=== PATIENT | male | born 1930 | race Caucasian/White ===

== ENCOUNTER → 2016-10-12 | Outpatient (CLI) | payer MEDICARE ==
--- NOTE | 2016-10-12 09:57 | CT ---
EXAMINATION TYPE: CT chest wo con DATE OF EXAM: 10/12/2016 COMPARISON: 04/06/2016 HISTORY: Patient complains of difficulty breathing. Patient has a history of renal CA with mets to t he lung. CT DLP: 498.3 mGycm. Automated Exposure Control for Dose Reduction was Utilized. TECHNIQUE: CT scan of the thorax is performed without IV contrast. FINDINGS: LUNGS: There are numerous bilateral pulmonary nodules the majority which appear to be stable in size. There is a nodule within the right middle lobe on axial image 42 which now measures 5 mm and previou sly measured approximately 3 mm. Overall the number of nodules appears to be relatively stable with t he largest nodule seen in the right lower lobe measuring approximately 1.4 cm. No pleural effusion. N o pneumothorax. Central bronchiectasis changes of COPD are suspected. Lack of IV contrast limits assessment for adenopathy. MEDIASTINUM: Lack of IV contrast is noted to limit evaluation for mediastinal and especially hilar ad enopathy. There are no definitive greater than 1 cm hilar or mediastinal lymph nodes. Atherosclerotic change aorta. OTHER: Previous right nephrectomy changes are noted and there are multiple hepatic lesions which dege nerative change of the spine is seen with 2 compression deformities near the thoracolumbar junction w hich appear to be stable from the previous exam. Sternotomy noted. Small hiatal hernia noted. IMPRESSION: 1. Numerous bilateral pulmonary nodules appear relatively stable in size with a single nodule in the right middle lobe increasing in size from 3 to 5 mm. Largest nodule again remains within the right lo wer lobe measuring 1.4 cm.
== END | disposition home or self-care (01) ==
LOC: RADCTMAIN 09:22
PROVIDERS: ATTEND Internal Medicine Hematology & Oncology
DX: C64.9 Malignant neoplasm of unspecified kidney, except renal pelvis (principal)
CPT/HCPCS: 71250

== ENCOUNTER → 2016-11-06 | Outpatient (CLI) | payer MEDICARE ==
--- NOTE | 2016-11-06 08:21 | CT ---
EXAMINATION TYPE: CT abdomen wo con DATE OF EXAM: 11/06/2016 COMPARISON: 06/05/2014 HISTORY: Right nephrectomy, hematuria CT DLP: 598 mGycm Automated exposure control for dose reduction was used. TECHNIQUE: Helical acquisition of images was performed from the lung bases through the top of iliac crest to include entire abdomen. CONTRAST: Performed without IV contrast. FINDINGS: LUNG BASES: Subsegmental linear changes most typical of scar or atelectasis. There are multiple pulmo nary nodules which have been previously described the largest in the right lower lobe measuring 1.7 c m. LIVER/GB: Hypoattenuating lesions within the liver are stable from the previous exam and most typical of hepatic cysts. No gallstones. Surgical lips seen adjacent to the posterior margin of the liver. PANCREAS: No significant abnormality is seen. SPLEEN: No significant abnormality is seen. ADRENALS: No significant abnormality is seen. KIDNEYS: Right nephrectomy changes seen. Last couple of contrast limits assessment of the left kidney for mass. No hydronephrosis or nephrolithiasis. There is a small hypodense lesions involving the low er pole left renal cortex indeterminate by noncontrast technique. 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 BOWEL: No significant abnormality is seen. LYMPH NODES: No significant abnormality is appreciated. OSSEOUS STRUCTURES: Degenerative and hypertrophic change the spine noted with multiple compression d eformities which are likely chronic with marked findings at L1 and L2. 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 IMPRESSION: 1. Post right nephrectomy changes with no evidence for recurrent mass. 2. 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 3. Multiple pulmonary nodules as previously been reported for multiple compression fractures which ap pear chronic
== END | disposition home or self-care (01) ==
LOC: RADCTMAIN 07:08
PROVIDERS: ATTEND Urology
DX: I72.2 Aneurysm of renal artery (principal); R91.8 Other nonspecific abnormal finding of lung field; Z90.5 Acquired absence of kidney; Z85.528 Personal history of other malignant neoplasm of kidney
CPT/HCPCS: 74150

== ENCOUNTER → 2017-05-03 | Outpatient (CLI) | payer MEDICARE ==
--- NOTE | 2017-05-03 11:23 | CT ---
EXAMINATION TYPE: CT chest wo con DATE OF EXAM: 05/03/2017 COMPARISON: 10/12/2016 HISTORY: Renal CA CT DLP: 748 mGycm. Automated Exposure Control for Dose Reduction was Utilized. TECHNIQUE: CT scan of the thorax is performed without IV contrast. FINDINGS: LUNGS: There are multiple bilateral pulmonary nodules the largest in the right lower lobe measuring 1 .4 cm. Nodules are stable in size and number from prior exam. No pleural effusion, pneumothorax or focal pneumonia. MEDIASTINUM: Lack of IV contrast is noted to limit evaluation for mediastinal and especially hilar ad enopathy. There are no definitive greater than 1 cm hilar or mediastinal lymph nodes. No cardiomega ly or pericardial effusion is seen. Coronary artery calcification noted. OTHER: Hypertrophic and degenerative changes spine seen with multiple compression deformities in the thoracolumbar region are stable. Sternotomy wires noted. Hepatic lesions are stable. Surgical clips i n the renal fossa noted. IMPRESSION: 1. Stable multiple bilateral pulmonary nodules unchanged in number and size from prior exam with the largest measuring 1.4 cm in the right lower lobe compatible with metastasis to stable hepatic lesions the largest measures approximately 2 Hounsfield units suggestive of simple cyst.
== END | disposition home or self-care (01) ==
LOC: RADCTMAIN 10:36
PROVIDERS: ATTEND Internal Medicine Hematology & Oncology
DX: C64.9 Malignant neoplasm of unspecified kidney, except renal pelvis (principal); R91.8 Other nonspecific abnormal finding of lung field
CPT/HCPCS: 71250

== ENCOUNTER → 2017-11-01 | Outpatient (CLI) | payer MEDICARE ==
--- NOTE | 2017-11-01 09:15 | CT ---
EXAMINATION TYPE: CT chest wo con DATE OF EXAM: 11/01/2017 COMPARISON: 05/03/2017, 10/12/2016, and 10/07/2015 HISTORY: 87-year-old male with history of renal cancer, observation for mets TECHNIQUE: Contiguous axial scanning of the chest without IV contrast. Coronal and sagittal reconstru ctions performed. CT DLP: 536.4 mGycm Automated exposure control for dose reduction was used. FINDINGS: Median sternotomy wires are present with post-CABG changes. Heart normal size without pericardial effusion. Mild coronary vessel calcifications are present. Ascending aorta is ectatic at 3.8 cm. Conventional arch vessel branching anatomy. Mild prostatic calc ifications within the aorta. 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 Scattered small mediastinal lymph nodes are demonstrated. No thoracic lymphadenopathy by CT size crit eria. Numerous bilateral pulmonary nodules are redemonstrated the majority of these are stable in size, for example, left upper lobe axial image 12 and 9 mm, superior segment left lower lobe and 1 cm axial im ages 27, Lingula at 1.1 cm axial image 35, left base at 8 mm axial image 50, right base at 1.8 cm, ax ial image 58. A few pulmonary nodules are a millimeter or 2 larger in size, for example, in the medial right lower lobe and 1 cm axial image 44 versus 9 mm, previously, 9 mm right midlung axial image 39 versus 7 mm, previously, and 6 mm peripheral right upper lobe axial image 26 versus 5 mm, previously, and 1.1 cm a nterior right apex versus 9 mm, previously. Mild centrilobular emphysema. No consolidation or pleural effusion. Small hiatal hernia. Numerous hypodense lesions within the liver remain unchanged from 10/07/2015 2 1.8 cm compatible with cysts. Right kidney surgically absent. Only partially visualized. Bones: L1 and L2 vertebral compression deformities with associated degenerative disc disease unchang ed. Normal variant sternal foramen. No osseous destructive process. IMPRESSION: 1. NUMEROUS BILATERAL PULMONARY NODULES MEASURING UP TO 1.8 CM. THE MAJORITY OF THESE ARE STABLE. HOW EVER, A HANDFUL ARE LARGER BY 1 OR 2 MM. CONTINUED FOLLOW-UP RECOMMENDED. NONE OF THE NODULES ARE SMA LLER. 2. 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 3. L1 AND L2 VERTEBRAL COMPRESSION DEFORMITIES ARE UNCHANGED.
== END | disposition home or self-care (01) ==
LOC: RADCTMAIN 08:26
PROVIDERS: ATTEND Internal Medicine Hematology & Oncology
DX: C64.9 Malignant neoplasm of unspecified kidney, except renal pelvis (principal); R91.8 Other nonspecific abnormal finding of lung field; J43.9 Emphysema, unspecified; I71.2 Thoracic aortic aneurysm, without rupture; Z90.5 Acquired absence of kidney
CPT/HCPCS: 71250

== ENCOUNTER 2017-12-30 09:25 | Emergency (ER) | payer MEDICARE ==
[2017-12-30] MEDS ORDERED: ACETAMINOPHEN TAB 500 MG TAB PO STA (13:12)
--- NOTE | 2017-12-30 13:27 | ED ---
General Adult HPI - General Chief complaint: Extremity Injury, Upper Stated complaint: LEFT SHOULDER PAIN Time Seen by Provider: 12/30/17 13:00 Source: patient, RN notes reviewed Mode of arrival: ambulatory Limitations: no limitations - History of Present Illness Initial comments: This is a 87-year-old male who presents with complaints of left shoulder pain that started 4 days ago. He states it's sharp 8/10 severity denies any trauma he is dominant left-handed but does not recall doing anything to hurt the left upper extremity he was seen at [facility] yesterday had an x-ray done and was told he had arthritis. He denies any numbness tingling or loss of function. No complaints of chest pain shortness breath or other symptoms. He states he's been using warm compresses on it but no oral medication. - Related Data Home Medications Medication Instructions Recorded Confirmed Fluticasone/Salmeterol [Advair 1 puff INHALATION RT-BID 09/25/13 12/30/17 500-50 Diskus] Levothyroxine Sodium [Synthroid] 112 mcg PO DAILY 09/25/13 12/30/17 Montelukast [Singulair] 10 mg PO HS 09/25/13 12/30/17 Cholecalciferol (Vitamin D3) 2,000 unit PO HS 12/30/17 12/30/17 [Vitamin D3] Losartan [Cozaar] 50 mg PO HS 12/30/17 12/30/17 Omeprazole [PriLOSEC] 40 mg PO DAILY 12/30/17 12/30/17 Tamsulosin HCl [Flomax] 0.4 mg PO HS 12/30/17 12/30/17 amLODIPine [Norvasc] 10 mg PO HS 12/30/17 12/30/17 Previous Rx's Medication Instructions Recorded predniSONE 20 mg PO BID #10 tab 12/30/17 Allergies Allergy/AdvReac Type Severity Reaction Status Date / Time succinylcholine Allergy Severe Unknown Verified 12/30/17 10:05 [Succinylcholine] Iodinated Contrast- Oral and AdvReac Unknown Verified 12/30/17 12:54 IV Dye Review of Systems ROS Statement: Those systems with pertinent positive or pertinent negative responses have been documented in the HPI. ROS Other: All systems not noted in ROS Statement are negative. 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 pylori, hiatal hernia, Graves' disease with a previous thyroidectomy, varicose veins, migraine headache, lactose intolerance, rosacea History of Any Multi-Drug Resistant Organisms: None Reported Past Surgical History: Tonsillectomy Additional Past Surgical History / Comment(s): RIGHT KIDNEY REMOVED (1993), THYROID REMOVED (2002) WAS FOUND TO HAVE 2 OF THEM SO ONE REMOVED, LARYNGOSCOPY , NODULES REMOVED FROM LUNGS, COURTNEY CATARACTS, thyroidectomy Past Anesthesia/Blood Transfusion Reactions: Previous Problems w/ Anesthesia Additional Past Anesthesia/Blood Transfusion Reaction / Comment(s): STATES HE RECEIVED SUCCINYLCHOLINE, CAUSED WEAKNESS IN HIS LEGS, NEEDED A WALKER FOR SEVERAL DAYS AFTERWARDS , AND FELT WEAKNESS FOR 6 MONTHS. Past Psychological History: No Psychological Hx Reported Smoking Status: Former smoker Past Alcohol Use History: None Reported Past Drug Use History: None Reported - Past Family History Brother(s) Family Medical History: Cancer Mother Family Medical History: Cancer Sister(s) Family Medical History: Cancer Father Family Medical History: Coronary Artery Disease (CAD) General Exam - General Exam Comments Initial Comments: This is a well-developed well-nourished awake alert oriented 3 male Limitations: no limitations General appearance: alert, in no apparent distress Head exam: Present: atraumatic, normocephalic, normal inspection Eye exam: Present: normal appearance, PERRL, EOMI. Absent: scleral icterus, conjunctival injection, periorbital swelling ENT exam: Present: normal exam, mucous membranes moist Neck exam: Present: normal inspection, full ROM. Absent: tenderness, meningismus, lymphadenopathy Respiratory exam: Present: normal lung sounds bilaterally. Absent: respiratory distress, wheezes, rales, rhonchi, stridor Cardiovascular Exam: Present: regular rate, normal rhythm, normal heart sounds. Absent: systolic murmur, diastolic murmur, rubs, gallop, clicks Extremities exam: Present: normal inspection, tenderness, normal capillary refill, other (The patient can passively lift his left arm but has trouble lifting at it without assistance due to pain. There is passive range of motion with no crepitation. Some mild times palpation of the deltoid bursa.). Absent : full ROM Back exam: Present: normal inspection Neurological exam: Present: alert, oriented X3, CN II-XII intact Psychiatric exam: Present: normal affect, normal mood Skin exam: Present: warm, dry, intact, normal color. Absent: rash Course Vital Signs 12/30/17 10:02 Temperature 97.5 F L Pulse Rate 92 Respiratory 17 Rate Blood Pressure 132/75 O2 Sat by Pulse 96 Oximetry Medical Decision Making - Medical Decision Making The patient's disc was unreadable from [employer]. A repeat x-ray showed no acute findings. I did discuss the findings with the patient has the presentation consistent with a bursitis. Patient be placed on a trial of oral steroids, for pain he does have a sling are ready he is a follow-up with his doctor for further evaluation. - Radiology Data Radiology results: report reviewed (Did review the imaging and report no acute findings.), image reviewed Disposition Clinical Impression: Bursitis of left shoulder Disposition: HOME SELF-CARE Condition: Good Instructions: Shoulder Bursitis (ED) Additional Instructions: Use your left shoulder sling when necessary, warm compresses as needed, follow up with Dr. Pace Prescriptions: predniSONE 20 mg PO BID #10 tab Is patient prescribed a controlled substance at d/c from ED?: No Referrals: Chriss Pace DO [Primary Care Provider] - 1-2 days
--- NOTE | 2017-12-30 13:51 | XR ---
EXAMINATION TYPE: XR shoulder complete LT DATE OF EXAM: 12/30/2017 COMPARISON: NONE HISTORY: Pain TECHNIQUE: Shoulder examined in 3 FINDINGS: The humeral head articulates with the glenoid. The acromio-clavicular junction is normal. No acute fractures or dislocations are evident. A follow up study can be performed 7-10 days from acute trauma for continued pain. IMPRESSION: 1. Normal Shoulder
[2017-12-30] MEDS ORDERED: predniSONE 50 MG TAB PO STA (14:37)
[2017-12-30 15:07] VITALS: BP 135/78; PULSE 91; RESP 16; TEMP 98
== END 2017-12-30 15:00 | disposition home or self-care (01) ==
LOC: EC 09:25
DX: M75.52 Bursitis of left shoulder (principal); J45.909 Unspecified asthma, uncomplicated; E05.00 Thyrotoxicosis with diffuse goiter without thyrotoxic crisis or storm; I10 Essential (primary) hypertension; K21.9 Gastro-esophageal reflux disease without esophagitis; N42.9 Disorder of prostate, unspecified; E89.0 Postprocedural hypothyroidism; Z87.891 Personal history of nicotine dependence; Z88.8 Allergy status to other drugs, medicaments and biological substances; Z91.041 Radiographic dye allergy status; Z79.51 Long term (current) use of inhaled steroids; Z79.899 Other long term (current) drug therapy; Z85.21 Personal history of malignant neoplasm of larynx; Z85.528 Personal history of other malignant neoplasm of kidney; Z87.01 Personal history of pneumonia (recurrent); Z92.21 Personal history of antineoplastic chemotherapy; Z92.3 Personal history of irradiation; Z90.5 Acquired absence of kidney
CPT/HCPCS: 73030; 99283; J7512

== ENCOUNTER → 2018-02-23 | Outpatient (CLI) | payer MEDICARE ==
--- NOTE | 2018-02-24 00:13 | MR ---
EXAMINATION TYPE: MR shoulder LT wo con DATE OF EXAM: 02/23/2018 COMPARISON: None HISTORY: Internal Derangement TECHNIQUE: Multiplanar, multisequence imaging of the left shoulder is performed without contrast. FINDINGS: There is small shoulder joint effusion. There is fluid around the biceps tendon. Subscapularis tendon is intact. The glenoid bart appear intact. There is slight narrowing of the shoulder joint space. T here is fluid at the AC joint with mild spur formation. The supraspinatus tendon appears intact. Ther e are a few small areas within the tendon that show increased signal. There is no retraction of the s upraspinatus tendon. I see no focal bone destruction. IMPRESSION: Osteoarthritic changes at the AC joint. Minute shoulder joint effusion. No evidence of any significan t rotator cuff tear. There are small intrasubstance tears of the supraspinatus tendon.
== END | disposition home or self-care (01) ==
LOC: RADMRIMAIN 17:19
PROVIDERS: ATTEND Family Medicine
DX: M19.012 Primary osteoarthritis, left shoulder (principal); M75.102 Unspecified rotator cuff tear or rupture of left shoulder, not specified as traumatic

== ENCOUNTER → 2018-04-27 | Outpatient (CLI) | payer MEDICARE ==
--- NOTE | 2018-04-28 10:06 | CT ---
EXAMINATION TYPE: CT ChestAbdPelvis wo con DATE OF EXAM: 04/27/2018 COMPARISON: CT chest dated 11/01/[address] abdomen dated 11/06/2016 HISTORY: renal CA and Lung CA CT DLP: 276.0 mGycm. Automated Exposure Control for Dose Reduction was Utilized. TECHNIQUE: CT scan of the thorax, abdomen and pelvis is performed without IV contrast. FINDINGS: LUNGS: There is redemonstration of numerous bilateral pulmonary nodules. These appear stable in size in comparison to the prior exam. For instance right lower lobe pulmonary nodule on series 4 image 35 measures 1.0 cm, lingular pulmonary nodule measures 1.1 cm on image 34, left lower lobe pulmonary nod ule measures 1.3 cm on image 23, and left apical pulmonary nodule measures 9 mm on image 13. Lower adilia ng volumes on the current examination creates crowding of the lung nodules. Overall there is a simila r number of pulmonary nodules. No new pulmonary masses are seen. Bibasilar dependent atelectasis is p resent in addition to respiratory motion partially obscuring visualization. Mild centrilobular emphys nae is redemonstrated. MEDIASTINUM: Artifact is seen surrounding the aortic root and right cardiac chambers obscuring visual ization. Moderate coronary artery calcifications are seen. There are no greater than 1 cm hilar or me diastinal lymph nodes. No pericardial effusion is seen. Again there is aneurysmal dilatation of th e upper descending thoracic aorta measuring 3.5 cm. LIVER/GB: The liver is moderately obscured by artifact. The previously seen hypoattenuated hepatic le sions are not well visualized but discussed as cyst on the prior exams. No gross evidence of cholelit hiasis. PANCREAS: There is a hazy appearance of the pancreas that may relate to patient motion.. SPLEEN: No significant abnormality is seen. ADRENALS: No significant abnormality is seen. KIDNEYS: Right kidney is surgically absent. Small bowel abuts the renal surgical bed. No new focal re nal soft tissue density or mass is seen in the surgical bed. There are areas of cortical thinning wit hin the left kidney and left lower pole lobulated renal cortex, again suboptimally evaluated without contrast. There is redemonstration of a stable 1.5 cm left renal arterial aneurysm versus pseudoaneur ysm. BOWEL: There are scattered colonic diverticula without pericolonic fat stranding. No dilated large or small bowel. LYMPH NODES: No greater than 1cm abdominal or pelvic lymph nodes are appreciated. OSSEOUS STRUCTURES: There is a left femoral arthroplasty effect and partially obscuring visualization of the pelvis. Mild right femoral acetabular arthropathy and moderate multilevel degenerative change s of the spine are noted. Median sternotomy wires are seen. No new suspicious osseous lesion is ident ified. There is redemonstration of compression deformities of the L1 and L2 vertebral bodies. Normal variant sternal foramen is again seen. OTHER: The size of the infrarenal abdominal aortic aneurysm is again limited due to patient motion ho wever on sagittal images this measures 3.8 cm in anterior posterior dimension, similar in measurement to the prior exam of 11/06/2016 where this measured 3.7 cm. IMPRESSION: Overall limited exam secondary to patient motion. Evaluation of the heart and liver are n ondiagnostic. 1. Stable numerous bilateral pulmonary nodules and compression deformities of L1 and L2. No new evide nce of osseous or visceral metastasis given the limitations as described above. 2. The infrarenal abdominal aortic aneurysm is thought to be similar in size to the prior currently m easuring 3.8 cm and previously measuring 3.7 cm, however also limited. 3. 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 Again there is lobulated contour of the left lower pole of the kidney that is indeterminate without contrast. This does appear similar to th e prior exams of 11/01/2017 and 11/06/2016. 4. No new soft tissue density within the right nephrectomy surgical bed.
== END | disposition home or self-care (01) ==
LOC: RADCTMAIN 12:44
PROVIDERS: ATTEND Internal Medicine Hematology & Oncology
DX: C64.9 Malignant neoplasm of unspecified kidney, except renal pelvis (principal); R91.8 Other nonspecific abnormal finding of lung field; I71.4 Abdominal aortic aneurysm, without rupture
CPT/HCPCS: 71250; 74176

== ENCOUNTER → 2019-03-16 | Outpatient (CLI) | payer MEDICARE | END | disposition home or self-care (01) | LOC: CPPFTMAIN 10:13 | PROVIDERS: ATTEND Internal Medicine Critical Care Medicine | DX: I99.8 Other disorder of circulatory system (principal) | CPT/HCPCS: 94060; 94726; 94729 ==

== ENCOUNTER → 2019-05-01 | Outpatient (CLI) | payer MEDICARE ==
--- NOTE | 2019-05-01 12:04 | CT ---
EXAMINATION TYPE: CT chest wo con DATE OF EXAM: 05/01/2019 COMPARISON: 04/27/2018 and 11/01/2017 HISTORY: 89-year-old male Renal cell cancer., Observe for metastases. TECHNIQUE: Contiguous axial scanning of the chest without IV contrast. Coronal and sagittal reconstru ctions performed. CT DLP: 530.7 mGycm Automated exposure control for dose reduction was used. FINDINGS: Median sternotomy wires are present. Heart normal size without pericardial effusion. LAD calcifications. Ectatic ascending aorta 3.8 cm. Stable ectasia upper descending thoracic aorta at 3.7 cm. Scattered small mediastinal lymph nodes. No thoracic lymphadenopathy by CT size criteria. Redemonstrated are numerous bilateral pulmonary nodules on a background of mild emphysema. The majority of these nodules are unchanged. A few nodules, for example, left upper lobe axial image 19 measures 1 cm versus 6 mm back on 11/01/2017 and 04/27/2018, have shown slight increase in size. Also, medial basal right lower lobe, axial image 43 measuring 1.3 cm versus 1.0 cm on 11/01/2017. Peripheral right base measuring 2.6 cm versus 1.8 cm on 11/01/2017. Tiny hiatal hernia. Multiple hepatic cysts measuring up to 2.2 cm redemonstrated. Surgical clips within the right renal fossa from prior nephrectomy. There is motion artifact and stre ak slightly hardening artifact limiting visualization of this region. Bones: L1 and L2 endplate deformities are unchanged as is old healed lower vertebral body fracture. N ormal variant sternal foramina. IMPRESSION: 1. COPD WITH MILD EMPHYSEMA. 2. NUMEROUS BILATERAL PULMONARY NODULES, THE MAJORITY OF WHICH ARE UNCHANGED. A FEW NODULES ARE MINIM ALLY INCREASED IN SIZE, FOR EXAMPLE, A PERIPHERAL RIGHT BASE NODULE MEASURING 2.6 CM VERSUS 1.8 CM ON 11/01/2017. CONTINUED FOLLOW-UP RECOMMENDED. 3. STATUS POST RIGHT NEPHRECTOMY.
== END | disposition home or self-care (01) ==
LOC: RADCTMAIN 11:03
PROVIDERS: ATTEND Internal Medicine Hematology & Oncology
DX: J43.9 Emphysema, unspecified (principal); C64.9 Malignant neoplasm of unspecified kidney, except renal pelvis; R91.8 Other nonspecific abnormal finding of lung field; Z90.5 Acquired absence of kidney
CPT/HCPCS: 71250

== ENCOUNTER 2020-04-02 02:49 | Observation (INO) | payer MEDICARE ==
--- NOTE | 2020-04-02 03:06 | ED ---
Chest Pain HPI - General Chief Complaint: Chest Pain Stated Complaint: Chest pain Time Seen by Provider: 04/02/20 03:05 Source: patient, EMS Mode of arrival: EMS Limitations: no limitations - History of Present Illness Initial Comments: This patient is an 89-year-old man who presents to be evaluated for pleuritic, left-sided chest pain. The patient had noticed a mild pain on the left side in the morning, but states that it went away. He states that tonight around 2 he moved in bed and noticed that he was getting sharp left-sided chest pains every time he would take a deep breath. He states the pain is mild, comes with deep breaths, and seems better if he holds his left side. He thought he may have cracked a rib but does not recall any trauma. No associated symptoms. No fever or chills, cough, dyspnea or any anginal type symptoms. MD Complaint: chest pain Onset/Timin -: days(s) Onset: during rest Pain Location: left chest Pain Radiation: none Severity: mild Quality: aching Consistency: intermittent Improves With: nothing Worsens With: inspiration Treatments Prior to Arrival: none - Related Data Home Medications Medication Instructions Recorded Confirmed Levothyroxine Sodium [Synthroid] 112 mcg PO DAILY 09/25/13 04/02/20 Montelukast [Singulair] 10 mg PO HS 09/25/13 04/02/20 Cholecalciferol (Vitamin D3) 2,000 unit PO W/SUPPER 12/30/17 04/02/20 [Vitamin D3] Losartan [Cozaar] 50 mg PO HS 12/30/17 04/02/20 Omeprazole [PriLOSEC] 40 mg PO W/SUPPER 12/30/17 04/02/20 Tamsulosin HCl [Flomax] 0.4 mg PO DAILY 12/30/17 04/02/20 amLODIPine [Norvasc] 10 mg PO HS 12/30/17 04/02/20 Fluticasone Propion/Salmeterol 1 puff INHALATION RT-BID 04/02/20 04/02/20 [Wixela 500-50 Inhub] Allergies Allergy/AdvReac Type Severity Reaction Status Date / Time succinylcholine Allergy Severe Unknown Verified 04/02/20 06:32 [Succinylcholine] Iodinated Contrast Media AdvReac Unknown Verified 04/02/20 06:32 [Iodinated Contrast- Oral and IV Dye] Review of Systems ROS Statement: Those systems with pertinent positive or pertinent negative responses have been documented in the HPI. ROS Other: All systems not noted in ROS Statement are negative. Constitutional: Denies: fever, chills ENT: Denies: congestion Respiratory: Denies: cough, dyspnea, hemoptysis Cardiovascular: Reports: as per HPI, chest pain. Denies: palpitations, orthopnea, edema, syncope Gastrointestinal: Denies: abdominal pain, nausea, vomiting, diarrhea Genitourinary: Denies: dysuria, hematuria, testicular pain Musculoskeletal: Denies: back pain Skin: Denies: rash Neurological: Denies: headache, weakness EKG Findings - EKG Results: EKG: interpreted by LORENZO, sinus rhythm (With PVCs, rate 89 bpm), normal ST/T - Blocks, [place], Hypertrophy, ST Abn: AV and intraventricular conduction: right bundle branch block (fixed/intermittent, complete/incomplete) (Incomplete) QRS axis and voltage: left axis deviation (-30 to -90) Past Medical History Past Medical History: Asthma, Cancer, GERD/Reflux, Hypertension, Pneumonia, Prostate Disorder, Thyroid Disorder Additional Past Medical History / Comment(s): 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 pylori, hiatal hernia, Graves' disease with a previous thyroidectomy, varicose veins, migraine headache, lactose intolerance, rosacea History of Any Multi-Drug Resistant Organisms: None Reported Past Surgical History: Tonsillectomy Additional Past Surgical History / Comment(s): RIGHT KIDNEY REMOVED (1993), THYROID REMOVED (2002) WAS FOUND TO HAVE 2 OF THEM SO ONE REMOVED, LARYNGOSCOPY, NODULES REMOVED FROM LUNGS, COURTNEY CATARACTS, thyroidectomy Past Anesthesia/Blood Transfusion Reactions: Previous Problems w/ Anesthesia Additional Past Anesthesia/Blood Transfusion Reaction / Comment(s): STATES HE R ECEIVED SUCCINYLCHOLINE, CAUSED WEAKNESS IN HIS LEGS, NEEDED A WALKER FOR SEVERAL DAYS AFTERWARDS , AND FELT WEAKNESS FOR 6 MONTHS. Past Psychological History: No Psychological Hx Reported Smoking Status: Former smoker Past Alcohol Use History: None Reported Past Drug Use History: None Reported - Past Family History Brother(s) Family Medical History: Cancer Mother Family Medical History: Cancer Sister(s) Family Medical History: Cancer Father Family Medical History: Coronary Artery Disease (CAD) General Exam Limitations: no limitations General appearance: alert, in no apparent distress Head exam: Present: atraumatic, normocephalic Eye exam: Present: normal appearance. Absent: scleral icterus, conjunctival injection Respiratory exam: Present: normal lung sounds bilaterally. Absent: respiratory distress, wheezes, rales, rhonchi, stridor Cardiovascular Exam: Present: regular rate, normal rhythm, normal heart sounds. Absent: systolic murmur, diastolic murmur, rubs, gallop GI/Abdominal exam: Present: soft. Absent: distended, tenderness, guarding, rebound, rigid, mass Extremities exam: Present: normal inspection, normal capillary refill. Absent: pedal edema, calf tenderness Back exam: Present: normal inspection. Absent: CVA tenderness (R), CVA tenderness (L) Neurological exam: Present: alert Skin exam: Present: warm, dry, intact, normal color. Absent: rash Course Vital Signs 04/02/20 04/02/20 04/02/20 02:50 03:40 04:55 Temperature 97.9 F 98.6 F Pulse Rate 90 92 88 Respiratory 16 18 19 Rate Blood Pressure 133/80 125/73 111/78 O2 Sat by Pulse 94 L 91 L 95 Oximetry 04/02/20 04/02/20 06:59 07:13 Temperature Pulse Rate 82 88 Respiratory 20 18 Rate Blood Pressure 118/77 111/85 O2 Sat by Pulse 96 97 Oximetry Chest Pain MDM - MDM This patient is an 89-year-old man brought to have evaluation of left sided pleuritic chest pain. The patient with some chronic kidney disease and therefore is given dose of Lovenox and to have a ventilation perfusion scan at her earliest availability. The patient did get up to ambulate to the bathroom and became markedly dyspneic and had oxygen saturations 88-90% Disposition Clinical Impression: COPD exacerbation, Chest pain, pleuritic, Elevated d-dimer Disposition: ADMITTED IP TO THIS HOSP Condition: Fair Referrals: Chriss Pace DO [Primary Care Provider] - 1-2 days
--- NOTE | 2020-04-02 03:30 | XR ---
EXAM: XR Chest, 2 Views CLINICAL HISTORY: ITS.REASON XR Reason: Chest Pain TECHNIQUE: Frontal and lateral views of the chest. COMPARISON: 07/11/18 at 05/01/19 FINDINGS: Lungs: Bilateral nodular and interstitial opacities. Pleural space: No significant pleural effusion or pneumothorax. Heart: Stable cardiomediastinal silhouette. Mediastinum: See above. Bones/joints: No acute fracture. IMPRESSION: Bilateral nodular and interstitial opacities. Correlate with history of malignancy and clinical symptoms regarding developing infection or edema.
[2020-04-02 03:36] LABS: Basophils % (A) 0 %; Eosinophils # (A) 0.2 k/uL (0-0.7); Eosinophils % (A) 2 %; HCT 43.1 % (39.0-53.0); HGB 14.1 gm/dL (13.0-17.5); Lymphocytes # (A) 1.8 k/uL (1.0-4.8); Lymphocytes % (A) 12 %; MCH 31.8 pg (25.0-35.0); MCHC 32.8 g/dL (31.0-37.0); MCV 97.2 fL (80.0-100.0); Mean Platelet Volume 8.3; Monocytes # (A) 0.7 k/uL (0-1.0); Monocytes % (A) 4 %; Neutrophils % (A) 81 %; Platelet Count 200 k/uL (150-450); RBC 4.43 m/uL (4.30-5.90); RDW 13.2 % (11.5-15.5); WBC 14.9 k/uL (3.8-10.6)
[2020-04-02 03:44] LABS: Albumin 3.5 g/dL (3.5-5.0); Calcium 8.7 mg/dL (8.4-10.2); Potassium 4.6 mmol/L (3.5-5.1); Total Bilirubin 1.5 mg/dL (0.2-1.3); Total Protein 6.8 g/dL (6.3-8.2)
[2020-04-02 04:18] LABS: Prothrombin Time 10.4 sec (9.0-12.0)
[2020-04-02 04:19] LABS: D-Dimer 1.76 mg/L FEU (<0.60); Partial Thromboplastin Time 21.7 sec (22.0-30.0)
[2020-04-02] MEDS ORDERED: ENOXAPARIN 100 MG/ML SYRINGE SQ ONE (05:00)
[2020-04-02] MEDS ORDERED: ENOXAPARIN 40 MG/0.4 ML SYRINGE SQ SCH (07:30)
[2020-04-02] MEDS: DOXYCYCLINE 100 MG CAP PO SCH ×2 (08:35→23:05)
[2020-04-02] MEDS: predniSONE 20 MG TAB PO SCH (08:35)
[2020-04-02] MEDS: IPRATROPIUM-ALBUTEROL 3 ML NEB INHALATION SCH ×4 (08:40→19:02)
--- NOTE | 2020-04-02 10:51 | US ---
EXAMINATION TYPE: US venous doppler duplex LE BI DATE OF EXAM: 04/02/2020 9:27 AM COMPARISON: NONE CLINICAL HISTORY: elevated ddimer. SOB. Not on blood thinners. No hx of DVT. SIDE PERFORMED: Bilateral TECHNIQUE: The lower extremity deep venous system is examined utilizing real time linear array sonog tushar with graded compression, doppler sonography and color-flow sonography. VESSELS IMAGED: Common Femoral Vein Deep Femoral Vein Greater Saphenous Vein * Femoral Vein Popliteal Vein Small Saphenous Vein * Proximal Calf Veins (* superficial vessels) Right Leg: Negative for DVT Left Leg: Negative for DVT IMPRESSION: 1 bilateral lower extremity ultrasound negative for deep venous thrombosis.
[2020-04-02] MEDS ORDERED: ACETAMINOPHEN TAB 325 MG TAB PO PRN (11:18)
--- NOTE | 2020-04-02 11:23 | P.HPIM ---
History of Present Illness H&P Date: 04/02/20 HISTORY OF PRESENT ILLNESS This is an 89-year-old male patient of Dr. Pace with a past medical history of COPD, mild intermittent asthma, history of tobacco use, renal cell cancer status post right-sided nephrectomy in 1993 with subsequent metastatic disease found in 2011 to the lungs status post chemotherapy for 3 years and completed course, larynx cancer status post radiation, removal of with chronic hoarseness, benign prostatic hypertrophy. Patient states that yesterday he had left upper chest pain and he thought he broke a rib although he denies elkins ving any trauma to the area. He did fine during the day but last night at 2 AM he woke up when he got up to the bathroom he is having significant pain which was now located under the left breast area and laterally. Pain was worse with deep breathing area and he states that he was recently treated by Dr. Valenzuela for chest congestion and completed a course of antibiotics but feeling much better. Patient came into [facility] emergency center for evaluation. He was found to be afebrile, heart rate 90, blood pressure 133/80, pulse ox 94% on room air. WBC 14.9, hemoglobin 14.1, platelet count 200. D- dimer 1.76. Sodium 133, potassium 4.6, BUN 31 and creatinine 1.6. Total b ilirubin 1.5, liver function tests normal, troponin negative. COVID-19 not detected. Chest x-ray reveals bilateral nodular and interstitial opacities. Correlate with history of malignancy and clinical symptoms regarding developing infection or edema. Bilateral lower extremity negative for DVT. VQ scan, echocardiogram and pulmonary consult ordered. REVIEW OF SYSTEMS Constitutional: No fever, no chills, no night sweats. No weight change. No weakness, fatigue or lethargy. No daytime sleepiness. EENT: No headache. No blurred vision or double vision, no loss of vision. No loss of Hearing, no ringing in the ears, no dizziness. No nasal drainage or congestion. No epistaxis. No sore throat. Lungs: No shortness of breath, cough, no sputum production. No wheezing. Cardiovascular: Reported chest pain, no lower extremity edema. No palpitations. No paroxysmal nocturnal dyspnea. No orthopnea. No lightheadedness or dizziness. No syncopal episodes. Abdominal: No abdominal pain. No nausea, vomiting. No diarrhea. No constipation. No bloody or tarry stools.. No loss of appetite. Genitourinary: No dysuria, increased frequency, urgency. No urinary retention. Musculoskeletal: No myalgias. No muscle weakness, no gait dysfunction, no frequent falls. No back pain. No neck pain. Integumentary: No wounds, no lesions. No rash or pruritus. No unusual bruising. No change in hair or nails. Neurologic: No aphasia. No facial droop. No change in mentation. No head injury. No headache. No paralysis. No paresthesia. Psychiatric: No depression. No anxiety. No mood swings. Endocrine: No abnormal blood sugars. No weight change. No excessive sweating or thirst. No cold intolerance. SOCIAL HISTORY Patient was a smoker for 27 years one pack per day and quit in 1978. He denies any marijuana use, alcohol use, illicit drug use. Patient is and lives at home with his . Patient is retired from [employer] where he worked for 23 years. FAMILY HISTORY Mother at age 51 from cancer thought to be thyroid cancer. Father at age 66 from myocardial infarction. Patient had a total of 5 siblings one brother from renal cancer. One sister from non-Hodgkin's lymphoma, one sister from breast cancer. Patient has had 2 nephews with renal cell carcinoma. Patient has 4 children with no major medical problems. PHYSICAL EXAMINATION Gen: This is an 89-year-old male. He is resting in the ER stretcher and appears to be comfortable and in no acute distress. HEENT: Head is atraumatic, normocephalic. Pupils equal, round. Sclerae is anict nayan. NECK: Supple. No JVD. No lymphadenopathy. No thyromegaly. LUNGS: Clear to auscultation. No wheezes or rhonchi. No intercostal retractions. HEART: Regular rate and rhythm. No murmur. ABDOMEN: Soft. Bowel sounds are present. No masses. No tenderness. EXTREMITIES: No pedal edema. No calf tenderness. NEUROLOGICAL: Patient is awake, alert and oriented x3. Cranial nerves 2 through 12 are grossly intact. ASSESSMENT AND PLAN 1. Chest wall pain with inspiration. 2. Elevated d-dimer, rule out pulmonary embolism with VQ scan. Consult with pulmonary medicine. 3. Possible COPD exacerbation. Continue DuoNeb treatments 4 times daily, prednisone 40 mg daily, doxycycline 100 mg twice daily. Consult with pulmonary medicine 4. Mild intermittent asthma, stable. 5. History of renal cell cancer status post right-sided nephrectomy. 6. 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 7. Larynx cancer, stable. 8. Hypertension. Continue amlodipine 10 mg at bedtime. 9. Hypothyroidism. Continue levothyroxine 112 g daily. 10. Benign prostatic hypertrophy. Continue Flomax 0.4 mg daily. 11. Chronic kidney disease stage III. Continue to monitor. Avoid nephrotoxic agents. Losartan on hold for now. 12. DVT prophylaxis. Lovenox. 13. GI prophylaxis and GERD. Continue omeprazole 40 mg supper. Patient will be admitted to the hospital for a minimum of 2 night stay. DISCHARGE PLAN Home. Impression and plan of care have been directed as dictated by the signing physician. Ruthy Gonzalez nurse practitioner acting as scribe for signing physician. 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 pylori, hiatal hernia, Graves' disease with a previous thyroidectomy, varicose veins, migraine headache, lactose intolerance, rosacea History of Any Multi-Drug Resistant Organisms: None Reported Past Surgical History: Tonsillectomy Additional Past Surgical History / Comment(s): RIGHT KIDNEY REMOVED (1993), THYROID REMOVED (2002) WAS FOUND TO HAVE 2 OF THEM SO ONE REMOVED, LARYNGOSCOPY, NODULES REMOVED FROM LUNGS, COURTNEY CATARACTS, thyroidectomy left hemiarthroplasty for left subcapital fracture in 2016 Past Anesthesia/Blood Transfusion Reactions: Previous Problems w/ Anesthesia Additional Past Anesthesia/Blood Transfusion Reaction / Comment(s): STATES HE RECEIVED SUCCINYLCHOLINE, CAUSED WEAKNESS IN HIS LEGS, NEEDED A WALKER FOR SEVERAL DAYS AFTERWARDS , AND FELT WEAKNESS FOR 6 MONTHS. Past Psychological History: No Psychological Hx Reported Smoking Status: Former smoker Past Alcohol Use History: None Reported Past Drug Use History: None Reported - Past Family History Brother(s) Family Medical History: Cancer Mother Family Medical History: Cancer Sister(s) Family Medical History: Cancer Father Family Medical History: Coronary Artery Disease (CAD) Medications and Allergies Home Medications Medication Instructions Recorded Confirmed Type Levothyroxine Sodium [Synthroid] 112 mcg PO DAILY 09/25/13 04/02/20 History Montelukast [Singulair] 10 mg PO HS 09/25/13 04/02/20 History Cholecalciferol (Vitamin D3) 2,000 unit PO W/SUPPER 12/30/17 04/02/20 History [Vitamin D3] Losartan [Cozaar] 50 mg PO HS 12/30/17 04/02/20 History Omeprazole [PriLOSEC] 40 mg PO W/SUPPER 12/30/17 04/02/20 History Tamsulosin HCl [Flomax] 0.4 mg PO DAILY 12/30/17 04/02/20 History amLODIPine [Norvasc] 10 mg PO HS 12/30/17 04/02/20 History Fluticasone Propion/Salmeterol 1 puff INHALATION RT-BID 04/02/20 04/02/20 History [Wixela 500-50 Inhub] Allergies Allergy/AdvReac Type Severity Reaction Status Date / Time succinylcholine Allergy Severe Unknown Verified 04/02/20 06:32 [Succinylcholine] Iodinated Contrast Media AdvReac Unknown Verified 04/02/20 06:32 [Iodinated Contrast- Oral and IV Dye] Physical Exam Vitals: Vital Signs Temp Pulse Resp BP Pulse Ox 04/02/20 08:48 90 04/02/20 08:41 92 04/02/20 07:13 88 18 111/85 97 04/02/20 06:59 82 20 118/77 96 04/02/20 04:55 98.6 F 88 19 111/78 95 04/02/20 03:40 92 18 125/73 91 L 04/02/20 02:50 97.9 F 90 16 133/80 94 L Intake and Output 04/01/20 04/02/20 04/02/20 22:59 06:59 14:59 Other: Weight 100.698 kg Results CBC & Chem 7: 04/02/20 03:22 04/02/20 03:22 Labs: Abnormal Lab Results - Last 24 Hours (Table) 04/02/20 04/02/20 04/02/20 Range/Units 03:22 03:22 03:22 WBC 14.9 H (3.8-10.6) k/uL Neutrophils # 12.0 H (1.3-7.7) k/uL APTT 21.7 L (22.0-30.0) sec D-Dimer 1.76 H (<0.60) mg/L FEU Sodium 133 L (137-145) mmol/L BUN 31 H (9-20) mg/dL Creatinine 1.61 H (0.66-1.25) mg/dL Glucose 125 H (74-99) mg/dL Total Bilirubin 1.5 H (0.2-1.3) mg/dL
--- NOTE | 2020-04-02 12:57 | NM ---
EXAMINATION TYPE: NM pul vent and perfuse DATE OF EXAM: 04/02/2020 COMPARISON: NONE HISTORY: Rule out PE TECHNIQUE: Utilizing inhalation of 69.7 mCi Tc 99m DTPA aerosol and intravenous injection of 4.8 mCi of Tc 99m MAA, ventilation and perfusion images are acquired post injection in multiple projections. FINDINGS: Normal radiotracer distribution is noted in the lungs. No suspicious moderate or large mismatched def ects are evident. There is no evidence of mismatched defects. IMPRESSION: Very low probability for pulmonary embolism
[2020-04-02] MEDS ORDERED: HYDROmorphone 0.5 MG/0.5 ML SYRINGE IVP PRN (13:58)
--- NOTE | 2020-04-02 14:41 | CT ---
EXAMINATION TYPE: CT chest wo con DATE OF EXAM: 04/02/2020 COMPARISON: Chest CT May 01, 2019 and older studies. HISTORY: Lung nodule CT DLP: 636.3 mGycm. Automated Exposure Control for Dose Reduction was Utilized. TECHNIQUE: CT scan of the thorax is performed without IV contrast. FINDINGS: LUNGS: Scattered bilateral pulmonary nodules are redemonstrated. They show interval increase in size and number from more remote studies, with nodules greatest in the upper lungs bilaterally redemonstra deacon. Compared to most recent CT majority of nodules are stable or show minimal interval change, for r eference posterior superior right upper lobe nodule measures 1.8 x 1.1 cm prior study axial image 22 and measures 1.8 x 1.3 cm for study image 21. For reference lingular nodule measures 1.4 x 1.2 cm cur rent study image 35 without significant interval change from prior study image 36. Largest nodule pos terolateral right lung base measures 2.6 x 2.1 cm for study image 47 without significant change from most recent study image 55. No pleural effusion or pneumothorax. MEDIASTINUM: Lack of IV contrast is noted to limit evaluation for mediastinal and especially hilar ad enopathy. There are no definitive new or enlarging greater than 1 cm hilar or mediastinal lymph nodes . No cardiomegaly or pericardial effusion is seen. Coronary artery calcification is redemonstrated. OTHER: A few scattered simple-appearing thin-walled cysts throughout the liver are redemonstrated. Madrigal rgical changes from right-sided nephrectomy partially imaged. Cortical thinning and simple appearing thin-walled cysts scattered throughout the partially visualized left kidney redemonstrated. Mild to m oderate compression type fracture deformities greatest L1 level centered near thoracolumbar junction are again seen and thought chronic in age. Ectatic abdominal aorta partially imaged. IMPRESSION: Bilateral pulmonary nodules likely reflecting hematogenous metastatic renal cell carcinom a spread redemonstrated. No significant progression from most recent CT.
--- NOTE | 2020-04-02 15:40 | P.CNPUL ---
History of Present Illness Consult date: 04/02/20 Reason for consult: chest pain History of present illness: 89-year-old male patient with known history of metastatic renal cell carcinoma, post right nephrectomy 1993 with subsequent significant involving the lungs in 2011. The patient has received immunotherapy. The patient also has history of laryngeal cancer postradiation therapy and he has chronic hoarseness. He is known to have COPD and BPH. The patient woke up today and the patient experienced pain along the left rib cage. The pain was sharp and he felt like he had broken a rib. He came into the emergency department. He was not hypoxic. He was not having any worsening shortness of breath. Initial thinking processes was pulmonary embolism. Was given Doppler of the lower extremities came back negative. VQ scan came back of a very low probability. VQ scan was done over a CAT scan of the chest that the patient has chronic kidney disease with a creatinine of 1.6. Troponins are negative. Liver function tests are within normal limits. Chest x-ray showing bilateral pulmonary nodules consistent with metastatic disease. No history of any recent trauma. He has fallen approximately 4 weeks ago. He has not sustained any damage to his left rib cage. No other complaints otherwise for now. Review of Systems Constitutional: No fever, no chills, no night sweats. No weight change. No weakness, fatigue or lethargy. No daytime sleepiness. EENT: No headache. No blurred vision or double vision, no loss of vision. No loss of Hearing, no ringing in the ears, no dizziness. No nasal drainage or congestion. No epistaxis. No sore throat. Lungs: No shortness of breath, cough, no sputum production. No wheezing. Cardiovascular: Reported chest pain, no lower extremity edema. No palpitations. No paroxysmal nocturnal dyspnea. No orthopnea. No lightheadedness or dizziness. No syncopal episodes. Abdominal: No abdominal pain. No nausea, vomiting. No diarrhea. No constipation. No bloody or tarry stools.. No loss of appetite. Genitourinary: No dysuria, increased frequency, urgency. No urinary retention. Musculoskeletal: No myalgias. No muscle weakness, no gait dysfunction, no frequent falls. No back pain. No neck pain. Integumentary: No wounds, no lesions. No rash or pruritus. No unusual b ruising. No change in hair or nails. Neurologic: No aphasia. No facial droop. No change in mentation. No head injury. No headache. No paralysis. No paresthesia. Psychiatric: No depression. No anxiety. No mood swings. Endocrine: No abnormal blood sugars. No weight change. No excessive sweating o r thirst. No cold intolerance. Past Medical History Past Medical History: Asthma, Cancer, GERD/Reflux, Hypertension, Pneumonia, Prostate Disorder, Thyroid Disorder Additional Past Medical History / Comment(s): ASL cancer with a previous nephrectomy 1993 and subsequent development of metastatic disease, laryngeal cancer in 2013 by radiation therapy, systemic chemotherapy for bilateral metastatic pulmonary lesions related to renal cell carcinoma and this was diagnosed in 2011, chronic back pain, abdominal aortic aneurysm, chronic back pain and degenerative arthritis, compression fracture of the spine, osteoporosis, gastric ulcer with positivity towards H. pylori, hiatal hernia, Graves' disease with a previous thyroidectomy, varicose veins, migraine headache, lactose intolerance, rosacea History of Any Multi-Drug Resistant Organisms: None Reported Past Surgical History: Tonsillectomy Additional Past Surgical History / Comment(s): RIGHT KIDNEY REMOVED (1993), THYROID REMOVED (2002) WAS FOUND TO HAVE 2 OF THEM SO ONE REMOVED, LARYNGOSCOPY, NODULES REMOVED FROM LUNGS, COURTNEY CATARACTS, thyroidectomy left hemiarthroplasty for left subcapital fracture in 2016 Past Anesthesia/Blood Transfusion Reactions: Previous Problems w/ Anesthesia Additional Past Anesthesia/Blood Transfusion Reaction / Comment(s): STATES HE RECEIVED SUCCINYLCHOLINE, CAUSED WEAKNESS IN HIS LEGS, NEEDED A WALKER FOR SEVERAL DAYS AFTERWARDS , AND FELT WEAKNESS FOR 6 MONTHS. Past Psychological History: No Psychological Hx Reported Smoking Status: Former smoker Past Alcohol Use History: None Reported Past Drug Use History: None Reported - Past Family History Brother(s) Family Medical History: Cancer Mother Family Medical History: Cancer Sister(s) Family Medical History: Cancer Father Family Medical History: Coronary Artery Disease (CAD) Medications and Allergies Home Medications Medication Instructions Recorded Confirmed Type Levothyroxine Sodium [Synthroid] 112 mcg PO DAILY 09/25/13 04/02/20 History Montelukast [Singulair] 10 mg PO HS 09/25/13 04/02/20 History Cholecalciferol (Vitamin D3) 2,000 unit PO W/SUPPER 12/30/17 04/02/20 History [Vitamin D3] Losartan [Cozaar] 50 mg PO HS 12/30/17 04/02/20 History Omeprazole [PriLOSEC] 40 mg PO W/SUPPER 12/30/17 04/02/20 History Tamsulosin HCl [Flomax] 0.4 mg PO DAILY 12/30/17 04/02/20 History amLODIPine [Norvasc] 10 mg PO HS 12/30/17 04/02/20 History Fluticasone Propion/Salmeterol 1 puff INHALATION RT-BID 04/02/20 04/02/20 History [Wixela 500-50 Inhub] Allergies Allergy/AdvReac Type Severity Reaction Status Date / Time succinylcholine Allergy Severe Unknown Verified 04/02/20 06:32 [Succinylcholine] Iodinated Contrast Media AdvReac Unknown Verified 04/02/20 06:32 [Iodinated Contrast- Oral and IV Dye] Physical Exam Vitals: Vital Signs Temp Pulse Resp BP Pulse Ox 04/02/20 14:34 98.3 F 93 16 127/89 95 04/02/20 11:17 95 04/02/20 11:11 98.3 F 90 18 135/75 95 04/02/20 11:08 94 04/02/20 08:48 90 04/02/20 08:41 92 04/02/20 07:13 88 18 111/85 97 04/02/20 06:59 82 20 118/77 96 04/02/20 04:55 98.6 F 88 19 111/78 95 04/02/20 03:40 92 18 125/73 91 L 04/02/20 02:50 97.9 F 90 16 133/80 94 L Intake and Output 04/02/20 04/02/20 04/02/20 06:59 14:59 22:59 Other: Weight 100.698 kg Gen. appearance the patient is calm comfortable and is not having any respiratory distress Head exam was generally normal. There was no scleral icterus or corneal arcus. Mucous membranes were moist. Neck was supple and without jugular venous distension, thyromegaly, or carotid bruits. Carotids were easily palpable bilaterally. There was no adenopathy. Lungs were clear to auscultation and percussion, and with normal diaphragmatic excursion. No wheezes or rales were noted. minimal heart Abdominal exam revealed normal bowel sounds. The abdomen was soft, non-tender, and without masses, organomegaly, or appreciable enlargement of the abdominal aorta. Examination of the extremities revealed easily palpable radial, femoral and pedal pulses. There was no cyanosis, clubbing or edema. Neurologically, the patient is awake and alert and the patient does not have any focal neurological deficit. Cranial nerves are essentially intact. Examination of the skin revealed no evidence of significant rashes, suspicious appearing nevi or other concerning lesions. Results - Laboratory Findings CBC and BMP: 04/02/20 03:22 04/02/20 03:22 PT/INR, D-dimer PT 10.4 sec (9.0-12.0) 04/02/20 03:22 INR 1.0 (<1.2) 04/02/20 03:22 D-Dimer 1.76 mg/L FEU (<0.60) H 04/02/20 03:22 Abnormal lab findings: Abnormal Labs 04/02/20 04/02/20 12 03:22 03:22 03:22 WBC 14.9 H Neutrophils # 12.0 H APTT 21.7 L D-Dimer 1.76 H Sodium 133 L BUN 31 H Creatinine 1.61 H Glucose 125 H Total Bilirubin 1.5 H Procalcitonin 04/02/20 03:22 WBC Neutrophils # APTT D-Dimer Sodium BUN Creatinine Glucose Total Bilirubin Procalcitonin 0.10 H - Diagnostic Findings Chest x-ray: image reviewed U/S of Legs: image reviewed Assessment and Plan Plan: 1 acute chest wall pain, likely skeletal, consider metastasis to the chest wall/rib cage from a primary renal cell carcinoma. Elected to pulmonary embolism. Doppler of the lower extremity and VQ scan were both negative. The pro-calcitonin is not elevated. The jovel virus covid19 screening came back negative. 2 metastatic renal cell carcinoma with ulnar involvement 3 history of laryngeal cancer with previous radiation therapy 4 hypertension 5 hypothyroidism 6 BPH 7 chronic stage III kidney disease 8 history of abdominal aortic aneurysm 9 osteoporosis with previous compression fracture of the spine Plan The Lantus for pain control 0.5 mg every 3-4 hours on a when necessary basis indication for pneumonia or COPD exacerbation. No clear indication for pulmonary embolism. Consider skeletal metastases from a underlying renal cell carcinoma. The patient's bilateral pulmonary nodules. A CAT scan of the chest will be needed to assess the progression of the pulmonologists a rule out skeletal chest wall involvement with malignancy. A noncontrast CAT scan of the chest will be ordered.
--- NOTE | 2020-04-02 17:27 | ECHOF ---
Referral Reason:LVF MEASUREMENTS -------- HEIGHT: 175.3 cm WEIGHT: 100.7 kg BP: 115/85 RVIDd: 3.4 cm (< 3.3) IVSd: 1.5 cm (0.6 - 1.1) LVIDd: 3.8 cm (3.9 - 5.3) LVPWd: 1.5 cm (0.6 - 1.1) IVSs: 2.0 cm LVIDs: 2.4 cm LVPWs: 1.7 cm LA Diam: 3.6 cm (2.7 - 3.8) Ao Diam: 3.8 cm (2.0 - 3.7) AV Cusp: 2.0 cm (1.5 - 2.6) MV EXCURSION: 15.279 mm (> 18.000) MV EF SLOPE: 41 mm/s (70 - 150) EPSS: 0.7 cm MV E Kendall: 0.56 m/s MV DecT: 193 ms MV A Kendall: 0.81 m/s MV E/A Ratio: 0.69 RAP: 5.00 mmHg RVSP: 32.34 mmHg FINDINGS -------- Sinus rhythm. This was a technically difficult study with suboptimal apical views. The left ventricular size is normal. There is moderate concentric left ventricular hypertrophy. O verall left ventricular systolic function is normal with, an EF between 55 - 60 %. The right ventricle is mildly enlarged. The left atrial size is normal. The right atrium is normal in size. 5.0mg of Lumason was utilized for enhancement of images Interatrial and interventricular septum intact. Aortic valve is trileaflet and is mildly thickened. Mild mitral annular calcification present. Mild tricuspid regurgitation present. Right ventricular systolic pressure is normal at < 35 mmHg. The pulmonic valve was not well visualized. The aortic root size is normal. Normal inferior vena cava with normal inspiratory collapse consistent with estimated right atrial pre ssure of 5 mmHg. There is no pericardial effusion. CONCLUSIONS -------- 1. The left ventricular size is normal. 2. There is moderate concentric left ventricular hypertrophy. 3. Overall left ventricular systolic function is normal with, an EF between 55 - 60 %. 4. The right ventricle is mildly enlarged. 5. 5.0mg of Lumason was utilized for enhancement of images 6. Aortic valve is trileaflet and is mildly thickened. 7. Mild mitral annular calcification present. 8. Mild tricuspid regurgitation present. 9. There is no pericardial effusion. SYSTEMS SOFTWARE SPECIALIST: BISI Long
[2020-04-02] MEDS: PANTOPRAZOLE 40 MG TABLET PO SCH (18:45)
[2020-04-02] MEDS: CHOLECALCIFEROL 1,000 UNIT TAB PO SCH (18:45)
[2020-04-02] MEDS: SYMBICORT 160-4.5 MCG INHALER INHALATION SCH (19:02)
[2020-04-02] MEDS: MONTELUKAST 10 MG TAB PO SCH (23:04)
[2020-04-02] MEDS: amLODIPine 10 MG TAB PO SCH (23:04)
[2020-04-02] MEDS: ENOXAPARIN 100 MG/ML SYRINGE SQ SCH (23:05)
[2020-04-03] MEDS: LEVOTHYROXINE 112 MCG TAB PO SCH (06:38)
[2020-04-03] MEDS: IPRATROPIUM-ALBUTEROL 3 ML NEB INHALATION SCH ×4 (08:17→19:49)
[2020-04-03] MEDS: SYMBICORT 160-4.5 MCG INHALER INHALATION SCH ×2 (08:17→19:49)
--- NOTE | 2020-04-03 08:53 | P.PN ---
Subjective Progress Note Date: 04/03/20 89-year-old male patient with known history of metastatic renal cell carcinoma, post right nephrectomy 1993 with subsequent significant involving the lungs in 2011. The patient has received immunotherapy. The patient also has history of laryngeal cancer postradiation therapy and he has chronic hoarseness. He is known to have COPD and BPH. The patient woke up today and the patient experienced pain along the left rib cage. The pain was sharp and he felt like he had broken a rib. He came into the emergency department. He was not hypoxic. He was not having any worsening shortness of breath. Initial thinking processes was pulmonary embolism. Was given Doppler of the lower extremities came back negative. VQ scan came back of a very low probability. VQ scan was done over a CAT scan of the chest that the patient has chronic kidney disease with a creatinine of 1.6. Troponins are negative. Liver function tests are within normal limits. Chest x-ray showing bilateral pulmonary nodules consistent with metastatic disease. No history of any recent trauma. He has fallen approximately 4 weeks ago. He has not sustained any damage to his left rib cage. No other complaints otherwise for now. On today's evaluation, the patient is being seen for follow-up. The patient is feeling better. The pain is subsided significantly. A CAT scan of the chest was done and the pulmonary nodules in his lungs were again redemonstrated. There was no change in the number and the size of the pulmonary nodules as noted on the CAT scan. The mediastinum was free of any disease. No explanation for his chest pain as the chest wall was measuring any disease involvement with malignancy. No evidence of any pleural effusion or pneumothorax. A bone scan will be ordered. Objective - Vital Signs Vital signs: Vital Signs Temp 97.5 F L 04/03/20 03:40 Pulse 97 04/03/20 08:28 Resp 16 04/03/20 03:40 BP 129/72 04/03/20 03:40 Pulse Ox 95 04/03/20 03:40 Intake & Output 04/02/20 04/03/20 04/03/20 18:59 06:59 18:59 Weight 100.698 kg Other: Voiding Method Toilet # Voids 2 - Exam Constitutional: No fever, no chills, no night sweats. No weight change. No weakness, fatigue or lethargy. No daytime sleepiness. EENT: No headache. No blurred vision or double vision, no loss of vision. No loss of Hearing, no ringing in the ears, no dizziness. No nasal drainage or congestion. No epistaxis. No sore throat. Lungs: No shortness of breath, cough, no sputum production. No wheezing. Cardiovascular: Reported chest pain, no lower extremity edema. No palpitations. No paroxysmal nocturnal dyspnea. No orthopnea. No lightheadedness or dizziness. No syncopal episodes. Abdominal: No abdominal pain. No nausea, vomiting. No diarrhea. No constipation. No bloody or tarry stools.. No loss of appetite. Genitourinary: No dysuria, increased frequency, urgency. No urinary retention. Musculoskeletal: No myalgias. No muscle weakness, no gait dysfunction, no frequent falls. No back pain. No neck pain. Integumentary: No wounds, no lesions. No rash or pruritus. No unusual bruising. No change in hair or nails. Neurologic: No aphasia. No facial droop. No change in mentation. No head injury. No headache. No paralysis. No paresthesia. Psychiatric: No depression. No anxiety. No mood swings. Endocrine: No abnormal blood sugars. No weight change. No excessive sweating or thirst. No cold intolerance. - Labs CBC & Chem 7: 04/02/20 03:22 04/02/20 03:22 Labs: Abnormal Lab Results - Last 24 Hours (Table) 04/02/20 Range/Units 03:22 Procalcitonin 0.10 H (0.02-0.09) ng/mL Assessment and Plan Plan: 1 acute chest wall pain, likely skeletal, consider metastasis to the chest wall/rib cage from a primary renal cell carcinoma. Elected to pulmonary embolism. Doppler of the lower extremity and VQ scan were both negative. The pro-calcitonin is not elevated. The jovel virus covid19 screening came back negative.tthe CAT scan of the chest that was done without contrast showed no interval change in the size and number of the pulmonary nodules. 2 metastatic renal cell carcinoma with ulnar involvement 3 history of laryngeal cancer with previous radiation therapy 4 hypertension 5 hypothyroidism 6 BPH 7 chronic stage III kidney disease 8 history of abdominal aortic aneurysm 9 osteoporosis with previous compression fracture of the spine Plan consider Marshall for pain control CAT scan of the chest was noted Nuclear bone scan to rule out metastases Possible discharge in the next 24 hours
[2020-04-03] MEDS: predniSONE 20 MG TAB PO SCH (09:11)
[2020-04-03] MEDS: TAMSULOSIN 0.4 MG CAP.ER.24H PO SCH (09:11)
[2020-04-03] MEDS: DOXYCYCLINE 100 MG CAP PO SCH ×2 (09:11→21:15)
[2020-04-03] MEDS: ENOXAPARIN 100 MG/ML SYRINGE SQ SCH ×2 (09:11→21:16)
--- NOTE | 2020-04-03 12:49 | P.PN ---
Subjective Progress Note Date: 04/03/20 HISTORY OF PRESENT ILLNESS This is an 89-year-old male patient of Dr. Pace with a past medical history of COPD, mild intermittent asthma, history of tobacco use, renal cell cancer status post right-sided nephrectomy in 1993 with subsequent metastatic disease found in 2011 to the lungs status post chemotherapy for 3 years and completed course, larynx cancer status post radiation, removal of with chronic hoarseness, benign prostatic hypertrophy. Patient states that yesterday he had left upper chest pain and he thought he broke a rib although he denies having any trauma to the area. He did fine during the day but last night at 2 AM he woke up when he got up to the bathroom he is having significant pain which was now located under the left breast area and laterally. Pain was worse with deep breathing area and he states that he was recently treated by Dr. Valenzuela for chest congestion and completed a course of antibiotics but feeling much better. Patient came into [facility] emergency center for evaluation. He was found to be afebrile, heart rate 90, blood pressure 133/80, pulse ox 94% on room air. WBC 14.9, hemoglobin 14.1, platelet count 200. D- dimer 1.76. Sodium 133, potassium 4.6, BUN 31 and creatinine 1.6. Total bilirubin 1.5, liver function tests normal, troponin negative. COVID-19 not detected. Chest x-ray reveals bilateral nodular and interstitial opacities. Correlate with history of malignancy and clinical symptoms regarding developing infection or edema. Bilateral lower extremity negative for DVT. VQ scan, echocardiogram and pulmonary consult ordered. 04/03: Patient has been seen by Dr. Good with recommendations for nuclear bone scan to rule out metastasis. Patient will be unable to have this performed until Wednesday due to VQ scan being done yesterday.. CT of the chest without contrast revealed bilateral pulmonary nodules likely reflecting hematogenous metastatic renal cell carcinoma spread. No significant progression from most recent CAT scan. VQ scan revealed low probability for pulmonary embolism. Echo cardiogram revealed moderate concentric left hypertrophy, EF 55-60%, mild mitral calcification, mild tricuspid regurgitation. Plan to monitor patient overnight and probable discharge tomorrow, probable outpatient bone scan. Patient has been afebrile, heart rate 90, blood pressure 135/71, pulse ox 94% on room air. REVIEW OF SYSTEMS Constitutional: No fever, no chills, no night sweats. No weight change. No weakness, fatigue or lethargy. No daytime sleepiness. EENT: No headache. No blurred vision or double vision, no loss of vision. No loss of Hearing, no ringing in the ears, no dizziness. No nasal drainage or congestion. No epistaxis. No sore throat. Lungs: No shortness of breath, cough, no sputum production. No wheezing. Cardiovascular: Reported occasional chest pain, no lower extremity edema. No palpitations. No paroxysmal nocturnal dyspnea. No orthopnea. No lightheadedness or dizziness. No syncopal episodes. Abdominal: No abdominal pain. No nausea, vomiting. No diarrhea. No constipation. No bloody or tarry stools.. No loss of appetite. Genitourinary: No dysuria, increased frequency, urgency. No urinary retention. Musculoskeletal: No myalgias. No muscle weakness, no gait dysfunction, no frequent falls. No back pain. No neck pain. Integumentary: No wounds, no lesions. No rash or pruritus. No unusual bruising . No change in hair or nails. Neurologic: No aphasia. No facial droop. No change in mentation. No head injury. No headache. No paralysis. No paresthesia. Psychiatric: No depression. No anxiety. No mood swings. Endocrine: No abnormal blood sugars. No weight change. No excessive sweating or thirst. No cold intolerance. PHYSICAL EXAMINATION Gen: This is an 89-year-old male. He is resting in bed and appears to be comfortable and in no acute distress. HEENT: Head is atraumatic, normocephalic. Pupils equal, round. Sclerae is anicteric. NECK: Supple. No JVD. No lymphadenopathy. No thyromegaly. LUNGS: Clear to auscultation. No wheezes or rhonchi. No intercostal retractions. HEART: Regular rate and rhythm. No murmur. ABDOMEN: Soft. Bowel sounds are present. No masses. No tenderness. EXTREMITIES: No pedal edema. No calf tenderness. NEUROLOGICAL: Patient is awake, alert and oriented x3. Cranial nerves 2 through 12 are grossly intact. ASSESSMENT AND PLAN 1. Chest wall pain with inspiration. 2. Elevated d-dimer, rule out pulmonary embolism with VQ scan. Consult with pulmonary medicine. 3. Possible COPD exacerbation. Continue DuoNeb treatments 4 times daily, prednisone 40 mg daily, doxycycline 100 mg twice daily. Consult with pulmonary medicine 4. Mild intermittent asthma, stable. 5. History of renal cell cancer status post right-sided nephrectomy. 6. 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 7. Larynx cancer, stable. 8. Hypertension. Continue amlodipine 10 mg at bedtime. 9. Hypothyroidism. Continue levothyroxine 112 g daily. 10. Benign prostatic hypertrophy. Continue Flomax 0.4 mg daily. 11. Chronic kidney disease stage III. Continue to monitor. Avoid nephrotoxic agents. Losartan on hold for now. 12. DVT prophylaxis. Lovenox. 13. GI prophylaxis and GERD. Continue omeprazole 40 mg supper. DISCHARGE PLAN Home. Impression and plan of care have been directed as dictated by the signing physician. Ruthy Gonzalez nurse practitioner acting as scribe for signing physician. Objective - Vital Signs Vital signs: Vital Signs Temp 97.5 F L 04/03/20 03:40 Pulse 97 04/03/20 08:28 Resp 16 04/03/20 03:40 BP 129/72 04/03/20 03:40 Pulse Ox 95 04/03/20 03:40 Intake & Output 04/02/20 04/03/20 04/03/20 18:59 06:59 18:59 Weight 100.698 kg Other: Voiding Method Toilet # Voids 2 - Labs CBC & Chem 7: 04/02/20 03:22 04/02/20 03:22 Labs: Abnormal Lab Results - Last 24 Hours (Table) 04/02/20 Range/Units 03:22 Procalcitonin 0.10 H (0.02-0.09) ng/mL
[2020-04-03] MEDS: CHOLECALCIFEROL 1,000 UNIT TAB PO SCH (17:16)
[2020-04-03] MEDS: PANTOPRAZOLE 40 MG TABLET PO SCH (17:16)
[2020-04-03] MEDS: amLODIPine 10 MG TAB PO SCH (21:15)
[2020-04-03] MEDS: MONTELUKAST 10 MG TAB PO SCH (21:15)
[2020-04-04] MEDS: LEVOTHYROXINE 112 MCG TAB PO SCH (06:34)
[2020-04-04] MEDS: IPRATROPIUM-ALBUTEROL 3 ML NEB INHALATION SCH (07:31)
[2020-04-04] MEDS: SYMBICORT 160-4.5 MCG INHALER INHALATION SCH (07:32)
[2020-04-04 08:05] VITALS: BP 127/61; PULSE 101; RESP 16; TEMP 97.6
[2020-04-04] MEDS: ENOXAPARIN 100 MG/ML SYRINGE SQ SCH (08:10)
[2020-04-04] MEDS: TAMSULOSIN 0.4 MG CAP.ER.24H PO SCH (08:10)
[2020-04-04] MEDS: predniSONE 20 MG TAB PO SCH (08:10)
[2020-04-04] MEDS: DOXYCYCLINE 100 MG CAP PO SCH (08:10)
[2020-04-04 08:11] LABS: HCT 40.7 % (39.0-53.0); HGB 13.5 gm/dL (13.0-17.5); MCH 31.9 pg (25.0-35.0); MCHC 33.2 g/dL (31.0-37.0); MCV 96.1 fL (80.0-100.0); Mean Platelet Volume 7.6; Platelet Count 257 k/uL (150-450); RBC 4.24 m/uL (4.30-5.90); RDW 12.6 % (11.5-15.5); WBC 12.8 k/uL (3.8-10.6)
[2020-04-04 08:21] LABS: Calcium 8.8 mg/dL (8.4-10.2); Potassium 4.3 mmol/L (3.5-5.1)
--- NOTE | 2020-04-04 09:14 | P.PN ---
Subjective Progress Note Date: 04/04/20 89-year-old male patient with known history of metastatic renal cell carcinoma, post right nephrectomy 1993 with subsequent significant involving the lungs in 2011. The patient has received immunotherapy. The patient also has history of laryngeal cancer postradiation therapy and he has chronic hoarseness. He is known to have COPD and BPH. The patient woke up today and the patient experienced pain along the left rib cage. The pain was sharp and he felt like he had broken a rib. He came into the emergency department. He was not hypoxic. He was not having any worsening shortness of breath. Initial thinking processes was pulmonary embolism. Was given Doppler of the lower extremities came back negative. VQ scan came back of a very low probability. VQ scan was done over a CAT scan of the chest that the patient has chronic kidney disease with a creatinine of 1.6. Troponins are negative. Liver function tests are within normal limits. Chest x-ray showing bilateral pulmonary nodules consistent with metastatic disease. No history of any recent trauma. He has fallen approximately 4 weeks ago. He has not sustained any damage to his left rib cage. No other complaints otherwise for now. On today's evaluation, the patient is being seen for follow-up. The patient is feeling better. The pain is subsided significantly. A CAT scan of the chest was done and the pulmonary nodules in his lungs were again redemonstrated. There was no change in the number and the size of the pulmonary nodules as noted on the CAT scan. The mediastinum was free of any disease. No explanation for his chest pain as the chest wall was measuring any disease involvement with malignancy. No evidence of any pleural effusion or pneumothorax. A bone scan will be ordered. On 04/04/2020, the patient is doing well. Pain is limited in the left chest area. No skin was ordered yesterday. No other new complaints otherwise for now. CAT scan of the chest done yesterday was noted and the result were discussed with the patient.. The pain is also a nonspecific pleurisy Objective - Vital Signs Vital signs: Vital Signs Temp 97.6 F 04/04/20 08:01 Pulse 101 H 04/04/20 08:01 Resp 16 04/04/20 08:01 BP 127/61 04/04/20 08:01 Pulse Ox 96 04/04/20 08:01 Intake & Output 12/01/1304/04/20 04/04/20 18:59 06:59 18:59 Other: Voiding Method Toilet Toilet Toilet # Voids 1 2 1 - Exam Constitutional: No fever, no chills, no night sweats. No weight change. No weakness, fatigue or lethargy. No daytime sleepiness. EENT: No headache. No blurred vision or double vision, no loss of vision. No loss of Hearing, no ringing in the ears, no dizziness. No nasal drainage or congestion. No epistaxis. No sore throat. Lungs: No shortness of breath, cough, no sputum production. No wheezing. Cardiovascular: Reported chest pain, no lower extremity edema. No palpitations. No paroxysmal nocturnal dyspnea. No orthopnea. No lightheadedness or dizziness. No syncopal episodes. Abdominal: No abdominal pain. No nausea, vomiting. No diarrhea. No constipation. No bloody or tarry stools.. No loss of appetite. Genitourinary: No dysuria, increased frequency, urgency. No urinary retention. Musculoskeletal: No myalgias. No muscle weakness, no gait dysfunction, no frequent falls. No back pain. No neck pain. Integumentary: No wounds, no lesions. No rash or pruritus. No unusual bruising. No change in hair or nails. Neurologic: No aphasia. No facial droop. No change in mentation. No head injury. No headache. No paralysis. No paresthesia. Psychiatric: No depression. No anxiety. No mood swings. Endocrine: No abnormal blood sugars. No weight change. No excessive sweating or thirst. No cold intolerance. - Labs CBC & Chem 7: 04/04/20 07:40 04/04/20 07:40 Labs: Abnormal Lab Results - Last 24 Hours (Table) 04/04/20 04/04/20 Range/Units 07:40 07:40 WBC 12.8 H (3.8-10.6) k/uL RBC 4.24 L (4.30-5.90) m/uL Sodium 133 L (137-145) mmol/L BUN 34 H (9-20) mg/dL Creatinine 1.68 H (0.66-1.25) mg/dL Assessment and Plan Plan: 1 acute chest wall pain, likely skeletal, consider metastasis to the chest wall/rib cage from a primary renal cell carcinoma. Elected to pulmonary embolism. Doppler of the lower extremity and VQ scan were both negative. The pro-calcitonin is not elevated. The jovel virus covid19 screening came back negative.tthe CAT scan of the chest that was done without contrast showed no interval change in the size and number of the pulmonary nodules. 2 metastatic renal cell carcinoma with ulnar involvement 3 history of laryngeal cancer with previous radiation therapy 4 hypertension 5 hypothyroidism 6 BPH 7 chronic stage III kidney disease 8 history of abdominal aortic aneurysm 9 osteoporosis with previous compression fracture of the spine Plan Pain has completely subsided. The patient can be discharged home today. A bone scan can be ordered at the later stage if needed should the pain recur. Otherwise, his condition is stable for now. Pulmonary embolism has been ruled out. Nodules in the lungs have been essentially unchanged.
--- NOTE | 2020-04-04 09:20 | P.DS ---
Providers Date of admission: 04/02/20 07:39 Expected date of discharge: 04/04/20 Attending physician: Caleb Sanchez Consults: 04/02/20 07:22 Consult Physician Routine Consulting Provider: Myles Valenzuela Reason/Comments: Your patient. COPD exacerbation. Pleuritic chest pain. Do you want consulting provider notified?: Yes Primary care physician: [facility] Course: HISTORY OF PRESENT ILLNESS This is an 89-year-old male patient of Dr. Pace with a past medical history of COPD, mild intermittent asthma, history of tobacco use, renal cell cancer status post right-sided nephrectomy in 1993 with subsequent metastatic disease found in 2012 to the lungs status post chemotherapy for 3 years and completed course, larynx cancer status post radiation, removal of with chronic hoarseness, benign prostatic hypertrophy. Patient states that yesterday he had left upper chest pain and he thought he broke a rib although he denies having any trauma to the area. He did fine during the day but last night at 2 AM he woke up when he got up to the bathroom he is having significant pain which was now located under the left breast area and laterally. Pain was worse with deep breathing area and he states that he was recently treated by Dr. Valenzuela for chest congestion and completed a course of antibiotics but feeling much better. Patient came into [facility] emergency center for evaluation. He was found to be afebrile, heart rate 90, blood pressure 133/80, pulse ox 94% on room air. WBC 14.9, hemoglobin 14.1, platelet count 200. D- dimer 1.76. Sodium 133, potassium 4.6, BUN 31 and creatinine 1.6. Total bilirubin 1.5, liver function tests normal, troponin negative. COVID-19 not detected. Chest x-ray reveals bilateral nodular and interstitial opacities. Correlate with history of malignancy and clinical symptoms regarding developing infection or edema. Bilateral lower extremity negative for DVT. VQ scan, echocardiogram and pulmonary consult ordered. 04/03: Patient has been seen by Dr. Good with recommendations for nuclear bone scan to rule out metastasis. Patient will be unable to have this performed until Wednesday due to VQ scan being done yesterday.. CT of the chest without contrast revealed bilateral pulmonary nodules likely reflecting hematogenous metastatic renal cell carcinoma spread. No significant progression from most recent CAT scan. VQ scan revealed low probability for pulmonary embolism. Echo cardiogram revealed moderate concentric left hypertrophy, EF 55-60%, mild mitral calcification, mild tricuspid regurgitation. Plan to monitor patient overnight and probable discharge tomorrow, probable outpatient bone scan. Patient has been afebrile, heart rate 90, blood pressure 135/71, pulse ox 94% on room air. 04/04: Patient states his chest pain is completely gone today. He has been seen by Dr. Good and cleared for discharge. Plan is for patient to follow-up with Dr. Valenzuela and if needed then bone scan can be ordered as an outpatient. Patient is agreeable to this plan. He has been afebrile, heart rate 101, blood pressure 127/61, pulse ox 96% on room air. Repeat blood work reveals WBC 12.8, hemoglobin 13.5. Sodium 133. BUN 34 and creatinine 1.68. Patient will be discharged home today in stable condition. ASSESSMENT AND PLAN 1. Chest wall pain with inspiration. 2. Elevated d-dimer, ruled out pulmonary embolism with VQ scan. 3. Possible COPD exacerbation. 4. Mild intermittent asthma, stable. 5. History of renal cell cancer status post right-sided nephrectomy. 6. 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 7. Larynx cancer, stable. 8. Hypertension. 9. Hypothyroidism. 10. Benign prostatic hypertrophy. 11. Chronic kidney disease stage III. DISCHARGE PLAN Home. Impression and plan of care have been directed as dictated by the signing physician. Ruthy Gonzalez nurse practitioner acting as scribe for signing physician. Patient Condition at Discharge: Good Plan - Discharge Summary Discharge Rx Participant: No New Discharge Prescriptions: New predniSONE 0 mg PO DIRECTED #30 tab Doxycycline [Vibramycin] 100 mg PO BID #10 cap Continue Montelukast [Singulair] 10 mg PO HS Levothyroxine Sodium [Synthroid] 112 mcg PO DAILY Losartan [Cozaar] 50 mg PO HS amLODIPine [Norvasc] 10 mg PO HS Tamsulosin HCl [Flomax] 0.4 mg PO DAILY Cholecalciferol (Vitamin D3) [Vitamin D3] 2,000 unit PO W/SUPPER Omeprazole [PriLOSEC] 40 mg PO W/SUPPER Fluticasone Propion/Salmeterol [Wixela 500-50 Inhub] 1 puff INHALATION RT-BID Discharge Medication List Levothyroxine Sodium [Synthroid] 112 mcg PO DAILY 09/25/13 [History] Montelukast [Singulair] 10 mg PO HS 09/25/13 [History] Cholecalciferol (Vitamin D3) [Vitamin D3] 2,000 unit PO W/SUPPER 12/30/17 [History] Losartan [Cozaar] 50 mg PO HS 12/30/17 [History] Omeprazole [PriLOSEC] 40 mg PO W/SUPPER 12/30/17 [History] Tamsulosin HCl [Flomax] 0.4 mg PO DAILY 12/30/17 [History] amLODIPine [Norvasc] 10 mg PO HS 12/30/17 [History] Fluticasone Propion/Salmeterol [Wixela 500-50 Inhub] 1 puff INHALATION RT-BID 04/02/20 [History] Doxycycline [Vibramycin] 100 mg PO BID #10 cap 04/04/20 [Rx] predniSONE 0 mg PO DIRECTED #30 tab 04/04/20 [Rx] Follow up Appointment(s)/Referral(s): Chriss Pace DO [Primary Care Provider] - 1 Week Myles Valenzuela DO [Doctor of Osteopathic Medicine] - 1 Week Discharge Disposition: HOME SELF-CARE
== END 2020-04-04 10:12 | disposition home or self-care (01) ==
LOC: EC 02:49 → 4SSUR 07:39 → 1SOBS 07:39 → UNDOADMOB 07:39 → 1SOBS 19:45
PROVIDERS: ADMIT Internal Medicine Geriatric Medicine; ATTEND Internal Medicine Geriatric Medicine
DX: R07.81 Pleurodynia (principal); R79.1 Abnormal coagulation profile; J44.9 Chronic obstructive pulmonary disease, unspecified; Z79.890 Hormone replacement therapy; Z20.828 Contact with and (suspected) exposure to other viral communicable diseases; J45.909 Unspecified asthma, uncomplicated; K21.9 Gastro-esophageal reflux disease without esophagitis; I10 Essential (primary) hypertension; M81.0 Age-related osteoporosis without current pathological fracture; E05.00 Thyrotoxicosis with diffuse goiter without thyrotoxic crisis or storm; R06.02 Shortness of breath; Z87.01 Personal history of pneumonia (recurrent); N40.0 Benign prostatic hyperplasia without lower urinary tract symptoms; E07.9 Disorder of thyroid, unspecified; L71.9 Rosacea, unspecified; Z85.05 Personal history of malignant neoplasm of liver; Z85.528 Personal history of other malignant neoplasm of kidney; Z85.21 Personal history of malignant neoplasm of larynx; Z85.118 Personal history of other malignant neoplasm of bronchus and lung; Z90.5 Acquired absence of kidney; Z92.21 Personal history of antineoplastic chemotherapy; G89.29 Other chronic pain; M54.9 Dorsalgia, unspecified; I71.4 Abdominal aortic aneurysm, without rupture; M19.90 Unspecified osteoarthritis, unspecified site; K44.9 Diaphragmatic hernia without obstruction or gangrene; E89.0 Postprocedural hypothyroidism; Z92.3 Personal history of irradiation; I83.90 Asymptomatic varicose veins of unspecified lower extremity; G43.909 Migraine, unspecified, not intractable, without status migrainosus; E73.9 Lactose intolerance, unspecified; Z98.42 Cataract extraction status, left eye; Z98.41 Cataract extraction status, right eye; Z87.891 Personal history of nicotine dependence; Z80.9 Family history of malignant neoplasm, unspecified; Z82.49 Family history of ischemic heart disease and other diseases of the circulatory system; Z79.899 Other long term (current) drug therapy; Z88.8 Allergy status to other drugs, medicaments and biological substances; Z91.041 Radiographic dye allergy status
CPT/HCPCS: 96372 ×4; 99285; 36415; 94640 ×5; 93005; 85379; 80053; 80048; 83735; 84484; 85025; 85027; 85610; 85730; 84145; 87635; 71046; 93970; 71250; 78582; G0378 ×3; C8929; A9540; A9567; J1650 ×3; J7512 ×3; Q9950; 93306

== ENCOUNTER 2020-09-01 13:46 | Inpatient (IN) | payer MEDICARE ==
--- NOTE | 2020-09-01 14:19 | ED ---
Abdominal Pain HPI - General Chief Complaint: Abdominal Pain Stated Complaint: abdominal pain Time Seen by Provider: 09/01/20 14:03 Source: patient, EMS Mode of arrival: EMS Limitations: no limitations - History of Present Illness Initial Comments: 82-year-old male history of renal cell carcinoma which she states is in remission he is not undergoing any current treatment he states he does have metastasis to lung which they're watching and he has a PET scan in October. Patient states that since 1:30 AM this morning he has had abdominal pain as well as nausea and vomiting. He denies diarrhea fevers. He denies any chest pain shortness of breath he does a darker bloody stools. Patient denies any weakness or upper respiratory symptoms. Patient states that he does feel distended like he is full of gas. Patient states he did have a normal bowel movement yesterday he denies constipation or inability to pass gas. Upon arrival patient appears nontoxic distress. Remaining ROS (-). - Related Data Home Medications Medication Instructions Recorded Confirmed Levothyroxine Sodium [Synthroid] 112 mcg PO DAILY 09/25/13 09/01/20 Montelukast [Singulair] 10 mg PO DAILY 09/25/13 09/01/20 Cholecalciferol (Vitamin D3) 2,000 unit PO DAILY 12/30/17 09/01/20 [Vitamin D3] Losartan [Cozaar] 50 mg PO DAILY 12/30/17 09/01/20 Omeprazole [PriLOSEC] 40 mg PO W/SUPPER 12/30/17 09/01/20 Tamsulosin HCl [Flomax] 0.4 mg PO DAILY 12/30/17 09/01/20 amLODIPine [Norvasc] 10 mg PO DAILY 12/30/17 09/01/20 Fluticasone Propion/Salmeterol 2 puff INHALATION RT-BID 04/02/20 09/01/20 [Wixela 500-50 Inhub] Allergies Allergy/AdvReac Type Severity Reaction Status Date / Time succinylcholine Allergy Severe Unknown Verified 09/01/20 15:03 [Succinylcholine] Iodinated Contrast Media AdvReac Unknown Verified 09/01/20 15:03 [Iodinated Contrast- Oral and IV Dye] Review of Systems ROS Statement: Those systems with pertinent positive or pertinent negative responses have been documented in the HPI. ROS Other: All systems not noted in ROS Statement are negative. Past Medical History Past Medical History: Asthma, Cancer, GERD/Reflux, Hypertension, Pneumonia, Prostate Disorder, Thyroid Disorder Additional Past Medical History / Comment(s): ASL cancer with a previous nephrectomy 1993 and subsequent development of metastatic disease, laryngeal cancer in 2013 by radiation therapy, systemic chemotherapy for bilateral metastatic pulmonary lesions related to renal cell carcinoma and this was diagnosed in 2011, chronic back pain, abdominal aortic aneurysm, chronic back pain and degenerative arthritis, compression fracture of the spine, osteoporosis, gastric ulcer with positivity towards H. pylori, hiatal hernia, Graves' disease with a previous thyroidectomy, varicose veins, migraine headache, lactose intolerance, rosacea History of Any Multi-Drug Resistant Organisms: None Reported Past Surgical History: Tonsillectomy Additional Past Surgical History / Comment(s): RIGHT KIDNEY REMOVED (1993), THYROID REMOVED (2002) WAS FOUND TO HAVE 2 OF THEM SO ONE REMOVED, LARYNGOSCOPY, NODULES REMOVED FROM LUNGS, COURTNEY CATARACTS, thyroidectomy left hemiarthroplasty for left subcapital fracture in 2016 Past Anesthesia/Blood Transfusion Reactions: Previous Problems w/ Anesthesia Additional Past Anesthesia/Blood Transfusion Reaction / Comment(s): STATES HE RECEIVED SUCCINYLCHOLINE, CAUSED WEAKNESS IN HIS LEGS, NEEDED A WALKER FOR SEVERAL DAYS AFTERWARDS , AND FELT WEAKNESS FOR 6 MONTHS. Past Psychological History: No Psychological Hx Reported Smoking Status: Former smoker Past Alcohol Use History: None Reported Past Drug Use History: None Reported - Past Family History Brother(s) Family Medical History: Cancer Mother Family Medical History: Cancer Sister(s) Family Medical History: Cancer Father Family Medical History: Coronary Artery Disease (CAD) General Exam - General Exam Comments Initial Comments: General: The patient is awake and alert, in no distress Eye: +3 mm pupils are equal, round and reactive to light, extra-ocular movements are intact. No nystagmus. There is normal conjunctiva bilaterally. No signs of icterus. Ears, nose, mouth and throat: There are moist mucous membranes and no oral lesions. Neck: The neck is supple, there is no tenderness or JVD. Cardiovascular: There is a regular rate and rhythm. No murmur, rub or gallop is appreciated. Respiratory: Lungs are clear to auscultation, respirations are non-labored, breath sounds are equal. No wheezes, stridor, rales, or rhonchi. Gastrointestinal: Soft, non-distended, distended abdomen, epigastric tenderness to palpation, abdomen without masses or organomegaly noted. There is no rebound or guarding present. Musculoskeletal: Normal ROM, no tenderness. Strength 5/5. Sensation intact. Radial pulses equal bilaterally 2+. Neurological: A&O x 3. CN II-XII intact grossly, There are no obvious motor or sensory deficits. Coordination appears grossly intact. Speech is normal. Skin: Skin is warm and dry and no rashes or lesions are noted. Psychiatric: Cooperative, appropriate mood & affect, normal judgment. Limitations: no limitations Course Vital Signs 09/01/20 09/01/20 09/01/20 13:59 14:59 15:39 Temperature 98 F Pulse Rate 85 89 89 Respiratory 18 18 18 Rate Blood Pressure 124/75 121/80 116/70 O2 Sat by Pulse 95 95 95 Oximetry 09/01/20 16:49 Temperature Pulse Rate 93 Respiratory 18 Rate Blood Pressure 131/83 O2 Sat by Pulse 94 L Oximetry Medical Decision Making - Medical Decision Making 89YO male presenting for cc of epigastric abdominal pain. No history of a copy is no gallstones on ultrasound was found to have pancreatitis. Patient will be admitted for IV hydration. ordered NPO. patient will be admitted. Dr Jorge agreeable to care plan as well as patient. - Lab Data Result diagrams: 09/01/20 14:19 09/01/20 14:19 Lab Results 09/01/20 09/01/20 09/01/20 Range/Units 14:19 14:19 14:19 WBC 22.8 H (3.8-10.6) k/uL RBC 4.72 (4.30-5.90) m/uL Hgb 14.9 (13.0-17.5) gm/dL Hct 44.0 (39.0-53.0) % MCV 93.2 (80.0-100.0) fL MCH 31.6 (25.0-35.0) pg MCHC 33.9 (31.0-37.0) g/dL RDW 12.3 (11.5-15.5) % Plt Count 238 (150-450) k/uL MPV 7.3 Neutrophils % 93 % Lymphocytes % 3 % Monocytes % 2 % Eosinophils % 1 % Basophils % 0 % Neutrophils # 21.3 H (1.3-7.7) k/uL Lymphocytes # 0.7 L (1.0-4.8) k/uL Monocytes # 0.5 (0-1.0) k/uL Eosinophils # 0.2 (0-0.7) k/uL Basophils # 0.0 (0-0.2) k/uL Sodium 135 L (137-145) mmol/L Potassium 4.9 (3.5-5.1) mmol/L Chloride 104 (98-107) mmol/L Carbon Dioxide 23 (22-30) mmol/L Anion Gap 8 mmol/L BUN 32 H (9-20) mg/dL Creatinine 1.84 H (0.66-1.25) mg/dL Est GFR (CKD-EPI)AfAm 37 (>60 ml/min/1.73 sqM) Est GFR (CKD-EPI)NonAf 32 (>60 ml/min/1.73 sqM) Glucose 129 H (74-99) mg/dL Plasma Lactic Acid Skyler 1.2 (0.7-2.0) mmol/L Calcium 9.2 (8.4-10.2) mg/dL Total Bilirubin 1.1 (0.2-1.3) mg/dL AST 23 (17-59) U/L ALT 10 (4-49) U/L Alkaline Phosphatase 92 (38-126) U/L Troponin I (0.000-0.034) ng/mL NT-Pro-B Natriuret Pep pg/mL Total Protein 7.4 (6.3-8.2) g/dL Albumin 4.1 (3.5-5.0) g/dL Amylase 1906 H* (30-110) U/L Lipase 04354 H (23-300) U/L Influenza Type A (PCR) (Not Detectd) Influenza Type B (PCR) (Not Detectd) RSV (PCR) (Not Detectd) SARS-CoV-2 (PCR) (Not Detectd) 09/01/20 09/01/20 09/01/20 Range/Units 14:19 14:19 15:36 WBC (3.8-10.6) k/uL RBC (4.30-5.90) m/uL Hgb (13.0-17.5) gm/dL Hct (39.0-53.0) % MCV (80.0-100.0) fL MCH (25.0-35.0) pg MCHC (31.0-37.0) g/dL RDW (11.5-15.5) % Plt Count (150-450) k/uL MPV Neutrophils % % Lymphocytes % % Monocytes % % Eosinophils % % Basophils % % Neutrophils # (1.3-7.7) k/uL Lymphocytes # (1.0-4.8) k/uL Monocytes # (0-1.0) k/uL Eosinophils # (0-0.7) k/uL Basophils # (0-0.2) k/uL Sodium (137-145) mmol/L Potassium (3.5-5.1) mmol/L Chloride (98-107) mmol/L Carbon Dioxide (22-30) mmol/L Anion Gap mmol/L BUN (9-20) mg/dL Creatinine (0.66-1.25) mg/dL Est GFR (CKD-EPI)AfAm (>60 ml/min/1.73 sqM) Est GFR (CKD-EPI)NonAf (>60 ml/min/1.73 sqM) Glucose (74-99) mg/dL Plasma Lactic Acid Skyler (0.7-2.0) mmol/L Calcium (8.4-10.2) mg/dL Total Bilirubin (0.2-1.3) mg/dL AST (17-59) U/L ALT (4-49) U/L Alkaline Phosphatase (38-126) U/L Troponin I <0.012 (0.000-0.034) ng/mL NT-Pro-B Natriuret Pep 188 pg/mL Total Protein (6.3-8.2) g/dL Albumin (3.5-5.0) g/dL Amylase (30-110) U/L Lipase (23-300) U/L Influenza Type A (PCR) Not Detected (Not Detectd) Influenza Type B (PCR) Not Detected (Not Detectd) RSV (PCR) Not Detected (Not Detectd) SARS-CoV-2 (PCR) Not Detected (Not Detectd) - EKG Data EKG Comments: Ventricular rate 97 bpm, [place] interval 182 ms, QRS synagogue 98 ms, QT/QTC 364/462. This is sinus rhythm with PVCs noted. Incomplete right bundle branch block with a possible left anterior fascicular block. EKG was compared to that of the most recent previous which appears to have minimal changes or significant artifact on the EKG secondary to movement. Disposition Clinical Impression: Pancreatitis, Epigastric pain, Nausea and vomiting, Liver metastasis, Lung metastasis Disposition: ADMITTED IP TO THIS HOSP Condition: Stable Is patient prescribed a controlled substance at d/c from ED?: No Time of Disposition: 15:56 Decision to Admit Reason: Admit from EC Decision Date: 09/01/20 Decision Time: 15:56
[2020-09-01] MEDS ORDERED: MORPHINE SULFATE 4 MG/ML SYRINGE IVP STA (14:33)
[2020-09-01] MEDS ORDERED: ONDANSETRON 4 MG/2 ML VIAL IVP STA (14:33)
[2020-09-01 14:44] LABS: Basophils % (A) 0 %; Eosinophils # (A) 0.2 k/uL (0-0.7); Eosinophils % (A) 1 %; HGB 14.9 gm/dL (13.0-17.5); Lymphocytes # (A) 0.7 k/uL (1.0-4.8); Lymphocytes % (A) 3 %; MCH 31.6 pg (25.0-35.0); MCHC 33.9 g/dL (31.0-37.0); MCV 93.2 fL (80.0-100.0); Mean Platelet Volume 7.3; Monocytes # (A) 0.5 k/uL (0-1.0); Monocytes % (A) 2 %; Neutrophils # (A) 21.3 k/uL (1.3-7.7); Neutrophils % (A) 93 %; Platelet Count 238 k/uL (150-450); RBC 4.72 m/uL (4.30-5.90); RDW 12.3 % (11.5-15.5); WBC 22.8 k/uL (3.8-10.6)
[2020-09-01 14:59] LABS: Albumin 4.1 g/dL (3.5-5.0); Calcium 9.2 mg/dL (8.4-10.2); Potassium 4.9 mmol/L (3.5-5.1); Total Bilirubin 1.1 mg/dL (0.2-1.3); Total Protein 7.4 g/dL (6.3-8.2)
[2020-09-01] MEDS ORDERED: SODIUM CHLORIDE 0.9% 500 ML 500 ML IV ONE (15:13)
--- NOTE | 2020-09-01 15:13 | CT ---
EXAMINATION TYPE: CT abdomen pelvis wo con DATE OF EXAM: 09/01/2020 COMPARISON: 04/27/2018 HISTORY: abdominal pain and bloating CT DLP: 1218.4 mGycm Automated exposure control for dose reduction was used. TECHNIQUE: Helical acquisition of images was performed from the lung bases through the pelvis. FINDINGS: There are multiple pulmonary nodules bilaterally the largest of which is 2.6 cm and is within the rig ht lung base. The findings are consistent with metastatic nodules. There are multiple small low-density lesions within the liver which in light of the lung nodules poss ibly represents metastatic disease to the liver. The gallbladder is normal and there is no biliary ductal dilatation. There is no abnormality of the p ancreas spleen or adrenal glands. There are surgical absence of the right kidney. The left kidney is atrophic but there is no left-side d hydronephrosis or calculus. In the right mid abdomen adjacent to the inferior vena cava there is a loop of bowel with a thickened wall and there is strand-like density in the adjacent fat findings X just above acute inflammatory p rocess or ischemia. Extending from the right colon is a pedunculated 5.3 cm well-circumscribed fluid-filled mass with a p artially calcified wall. There is no adjacent or surrounding inflammation. This appears to represent a noninflamed large fluid-filled diverticulum of the right colon. There is diffuse diverticulosis of the sigmoid colon. There is no free intraperitoneal air or fluid a nd there is no bowel obstruction. There is no pelvic mass, abscess or adenopathy. IMPRESSION: 1. Abnormal loop of bowel in the mid abdomen adjacent to the inferior vena cava likely represents foc al inflammatory process or ischemia. 2. Large fluid-filled diverticula of the right colon without evidence of inflammation. 3. No free intraperitoneal air or fluid and no bowel obstruction. 4. Surgical absence of the right kidney. 5. Multiple pulmonary and liver masses highly suspicious for metastatic disease.
--- NOTE | 2020-09-01 15:26 | XR ---
EXAMINATION TYPE: XR chest 2V DATE OF EXAM: 09/01/2020 COMPARISON: Chest radiograph dated 04/02/2020. CT chest dated 04/02/2020. HISTORY: Chest pain TECHNIQUE: Frontal and lateral views of the chest are obtained. FINDINGS: As on the prior chest radiograph from 04/14/2020 Multiple scattered pulmonary nodules which are essentially unchanged compared to the prior study. The se correlate well with the pulmonary nodule seen on chest CT. The heart is mildly prominent. There is no large pleural effusion. There is no pneumothorax. The medi astinum and hilum are normal. Is been prior median sternotomy. The osseous structures are intact. IMPRESSION: 1. No change in the bilateral pulmonary nodules. 2. No evidence of acute cardiopulmonary disease. 3. No significant interval change since the study of 04/02/2020 IMPRESSION: No acute cardiopulmonary process.
--- NOTE | 2020-09-01 15:49 | US ---
EXAMINATION TYPE: US gallbladder DATE OF EXAM: 09/01/2020 COMPARISON: CT done same day and numerous prior CT's. CLINICAL HISTORY: pancreatitis. EXAM MEASUREMENTS: Liver Length: 14.6 cm Gallbladder Wall: 0.3 cm CBD: unable to visualize Right Kidney: surgically absent Extremely limited exam due to extensive midline bowel gas. Pancreas: Obscured by bowel gas Liver: Limited to intercostal window, unable to fully evaluate. Gallbladder: No stones seen Evidence for sonographic Chaudhry's sign: No CBD: Obscured by overlying bowel gas Right Kidney: surgically absent The gallbladder is normal without distention, wall thickening, pericholecystic fluid or gallstones. IMPRESSION: Limited study for increase, liver and bile duct. The gallbladder is unremarkable.
[2020-09-01] MEDS ORDERED: PIPERACILLIN-TAZOBACTAM 3.375 GM in SODIUM CHLORIDE 0.9% 100 ML IVPB STA (15:53)
[2020-09-01] MEDS ORDERED: NALOXONE 0.4 MG/ML 1 ML VIAL IV PRN (15:56)
[2020-09-01] MEDS: SODIUM CHLORIDE 0.9% 1,000 ML IV SCH ×2 (16:46→23:33)
[2020-09-01] MEDS: HYDROmorphone 0.5 MG/0.5 ML SYRINGE IVP PRN (18:10)
[2020-09-02 07:49] LABS: Appearance,Urine Cloudy (Clear); Bacteria,Urine Rare /hpf; Bilirubin,Urine Negative (Negative); Blood,Urine Small (Negative); Color,Urine Yellow; Glucose,Urine (UA) Negative (Negative); Hyaline Casts,Urine 1 /lpf (0-2); Ketones,Urine Negative (Negative); Leukocyte Esterase,Urine Large (Negative); Mucus,Urine Rare /hpf; Nitrite,Urine Negative (Negative); PH, Urine 5.5 (5.0-8.0); Protein,Urine 1+ (Negative); RBC,Urine 13 /hpf (0-5); Specific Gravity,Urine 1.018 (1.001-1.035); Squamous Epithelial Cell,Urine 1 /hpf (0-4); Urobilinogen,Urine <2.0 mg/dL (<2.0); WBC,Urine 101 /hpf (0-5)
[2020-09-02] MEDS ORDERED: LOSARTAN 50 MG TAB PO SCH (11:15)
--- NOTE | 2020-09-02 11:50 | XR ---
EXAMINATION TYPE: XR abdomen 1V DATE OF EXAM: 09/02/2020 COMPARISON: NONE HISTORY: Possible ileus TECHNIQUE: One view abdominal series FINDINGS: Bilateral lower lobe infiltrate. Curvature of the spine with compression deformities of indeterminate age. Surgical clips in the abdomen. Dilated bowel loops in the abdomen. Postsurgical change left hip and severe arthropathy right hip. Degenerative change of the spine. IMPRESSION: 1. Nonspecific abdomen. 2. Basilar infiltrates.
[2020-09-02] MEDS: TAMSULOSIN 0.4 MG CAP.ER.24H PO SCH (12:56)
[2020-09-02] MEDS: PIPERACILLIN-TAZOBACTAM 3.375 GM in SODIUM CHLORIDE 0.9% 100 ML IVPB SCH ×2 (12:56→19:56)
[2020-09-02] MEDS: HYDROmorphone 0.5 MG/0.5 ML SYRINGE IVP PRN (12:56)
[2020-09-02] MEDS: LEVOTHYROXINE 112 MCG TAB PO SCH (12:56)
[2020-09-02] MEDS: SODIUM CHLORIDE 0.9% 1,000 ML IV SCH ×3 (12:57→23:41)
--- NOTE | 2020-09-02 14:33 | P.CONS ---
History of Present Illness - Reason for Consult Consult date: 09/02/20 liver and lung lesions Requesting physician: Matthew Rand - Chief Complaint abd pain, distension - History of Present Illness Mr. Lazo is a very pleasant pt of Dr. Orellana diagnosed with renal cell carcinoma in 1993, had a right nephrectomy. At that time,he had a lung nodule which has been followed, it had been gradually progressing and since 2008, he developed multiple lung nodules. He had a CT scan in September 2011 which revealed multiple bilateral lung nodules,He had a PET scan in November 2011 which revealed no significant uptake, which is typical of renal cell carcinoma. On 01/01/2012,he had VATs and BOB wedge resection biopsy which revealed metastatic clear cell carcinoma. 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 He had a brain MRI, bone scan in December 2011 which were negative for mets. CT scan of chest on 03/08/2012,revealed slight improvement in his lung nodules. Repeat CT scan on 05/25/2012 revealed stable disease. He was taking oral pazotinib and tolerated it well except for mild nausea. Repeat CT chest 08/25/12 revealed no progression. F/U scans remained stable. He decided to stop vo trient in February 2015 due to fatigue. He had annual CT chest, all stable, due in October. Pt is currently admitted with abd pain, persistent and progressive since 03/2020. Pain started on left side, now whole abd is tender. He denied fevers, sweats, unintentional wt loss but does note loss of appetite. He has been having difficulty swallowing due to thick mucus in the mouth and esophagus, he will occasionally have to spit out whatever he is eating, does not equate with vomiting. No dysphagia, chest pain, [place], acute changes in bowel or bladder, swelling, bleeding or other symptoms. He thinks he is having EGD, he is NPO for significantly elevated pancreatic enzymes Review of Systems 10 point ROS is neg except as stated in HPI Past Medical History Past Medical History: Asthma, Cancer, GERD/Reflux, Hypertension, Pneumonia, Prostate Disorder, Thyroid Disorder Additional Past Medical History / Comment(s): ASL cancer with a previous nephrectomy 1993 and subsequent development of metastatic disease, laryngeal cancer in 2013 by radiation therapy, systemic chemotherapy for bilateral metastatic pulmonary lesions related to renal cell carcinoma and this was diagnosed in 2011, chronic back pain, abdominal aortic aneurysm, chronic back pain and degenerative arthritis, compression fracture of the spine, osteoporosis, gastric ulcer with positivity towards H. pylori, hiatal hernia, Graves' disease with a previous thyroidectomy, varicose veins, migraine headache, lactose intolerance, rosacea History of Any Multi-Drug Resistant Organisms: None Reported Past Surgical History: Tonsillectomy Additional Past Surgical History / Comment(s): RIGHT KIDNEY REMOVED (1993), THYROID REMOVED (2002) WAS FOUND TO HAVE 2 OF THEM SO ONE REMOVED, LARYNGOSCOPY, NODULES REMOVED FROM LUNGS, COURTNEY CATARACTS, thyroidectomy left hemiarthroplasty for left subcapital fracture in 2016 Past Anesthesia/Blood Transfusion Reactions: Previous Problems w/ Anesthesia Additional Past Anesthesia/Blood Transfusion Reaction / Comm: STATES HE RECEIVED SUCCINYLCHOLINE, CAUSED WEAKNESS IN HIS LEGS, NEEDED A WALKER FOR SEVERAL DAYS AFTERWARDS , AND FELT WEAKNESS FOR 6 MONTHS. Past Psychological History: No Psychological Hx Reported Smoking Status: Former smoker Past Alcohol Use History: None Reported (no ETOH since cancer ) Past Drug Use History: None Reported - Past Family History Brother(s) Family Medical History: Cancer Mother Family Medical History: Cancer Sister(s) Family Medical History: Cancer Father Family Medical History: Coronary Artery Disease (CAD) Medications and Allergies Home Medications Medication Instructions Recorded Confirmed Type Levothyroxine Sodium [Synthroid] 112 mcg PO DAILY 09/25/13 09/01/20 History Montelukast [Singulair] 10 mg PO DAILY 09/25/13 09/01/20 History Cholecalciferol (Vitamin D3) 2,000 unit PO DAILY 12/30/17 09/01/20 History [Vitamin D3] Losartan [Cozaar] 50 mg PO DAILY 12/30/17 09/01/20 History Omeprazole [PriLOSEC] 40 mg PO W/SUPPER 12/30/17 09/01/20 History Tamsulosin HCl [Flomax] 0.4 mg PO DAILY 12/30/17 09/01/20 History amLODIPine [Norvasc] 10 mg PO DAILY 12/30/17 09/01/20 History Fluticasone Propion/Salmeterol 2 puff INHALATION RT-BID 04/02/20 09/01/20 History [Wixela 500-50 Inhub] Allergies Allergy/AdvReac Type Severity Reaction Status Date / Time succinylcholine Allergy Severe Unknown Verified 09/01/20 15:03 [Succinylcholine] Iodinated Contrast Media AdvReac Unknown Verified 09/01/20 15:03 [Iodinated Contrast- Oral and IV Dye] Physical Exam Vitals: Vital Signs Temp Pulse Pulse Resp BP BP Pulse Ox 09/02/20 12:25 98.3 F 55 L 17 138/72 93 L 09/02/20 05:19 97.5 F L 88 16 135/76 92 L 09/01/20 19:19 97.4 F L 84 16 128/74 92 L 09/01/20 17:37 98.4 F 99 18 106/71 09/01/20 16:49 93 18 131/83 94 L 09/01/20 15:39 89 18 116/70 95 09/01/20 14:59 89 18 121/80 95 Intake and Output 09/01/20 09/02/20 09/02/20 22:59 06:59 14:59 Intake Total 1560 Balance 1560 Intake: Intake, IV Titration 1560 Amount Sodium Chloride 0.9% 1, 1560 000 ml @ 130 mls/hr IV . Q7H42M [facility] Rx#:[id number] Other: Voiding Method Urinal # Voids 1 - Constitutional General appearance: average body habitus, cooperative, mild distress - EENT very dry mucus membranes Eyes: anicteric sclerae, EOMI ENT: hearing grossly normal - Neck Thick neck, possibly some left neck adenopathy, no axillary or inguinal adenopathy Neck: lymphadenopathy - Respiratory Respiratory: bilateral: CTA - Cardiovascular Rhythm: regular Heart sounds: normal: S1, S2 Abnormal Heart Sounds: no systolic murmur, no diastolic murmur, no rub, no S3 Gallop, no S4 Gallop, no click, no other foot Peripheral Edema: bilateral: Trace - Gastrointestinal Right flank fullness, rebound tenderness in the RLQ, abd is soft overall. Pt has trouble with deep inspiration because of abd discomfort General gastrointestinal: distended - Integumentary Integumentary: pale - Neurologic Neurologic: CNII-XII intact - Musculoskeletal Musculoskeletal: strength equal bilaterally - Psychiatric Psychiatric: A&O x's 3, appropriate affect, intact judgment & insight Results CBC & Chem 7: 09/01/20 14:19 09/01/20 14:19 Labs: Abnormal Lab Results - Last 24 Hours (Table) 09/01/20 09/01/20 09/02/20 Range/Units 14:19 14:19 07:10 WBC 22.8 H (3.8-10.6) k/uL Neutrophils # 21.3 H (1.3-7.7) k/uL Lymphocytes # 0.7 L (1.0-4.8) k/uL Sodium 135 L (137-145) mmol/L BUN 32 H (9-20) mg/dL Creatinine 1.84 H (0.66-1.25) mg/dL Glucose 129 H (74-99) mg/dL Amylase 1906 H* (30-110) U/L Lipase 11442 H (23-300) U/L Urine Protein 1+ H (Negative) Urine Blood Small H (Negative) Ur Leukocyte Esterase Large H (Negative) Urine RBC 13 H (0-5) /hpf Urine WBC 101 H (0-5) /hpf Urine WBC Clumps Few H (None) /hpf Urine Bacteria Rare H (None) /hpf Urine Mucus Rare H (None) /hpf Abdominal x-ray: report reviewed CT scan - abdomen: report reviewed CT scan - pelvis: report reviewed Assessment and Plan (1) Pancreatitis Narrative/Plan: NPO. Mgmt per Internal Medicine Current Visit: Yes Status: Acute Priority: High Code(s): K85.90 - ACUTE PANCREATITIS WITHOUT NECROSIS OR INFECTION, UNSP SNOMED Code(s): 24579140 (2) Liver metastasis Current Visit: Yes Status: Acute Priority: High Code(s): C78.7 - SECONDARY MALIG NEOPLASM OF LIVER AND INTRAHEPATIC BILE DUCT SNOMED Code(s): 81396892 (3) Lung metastasis Current Visit: Yes Status: Acute Priority: Medium Code(s): C78.00 - SECONDARY MALIGNANT NEOPLASM OF UNSPECIFIED LUNG SNOMED Code(s): 63948122 (4) Renal cell adenocarcinoma Current Visit: Yes Status: Chronic Priority: Medium Code(s): C64.9 - MALIGNANT NEOPLASM OF UNSP KIDNEY, EXCEPT RENAL PELVIS SNOMED Code(s): 186861466 (5) Carcinoma in situ of larynx Current Visit: No Status: Chronic Priority: Low Code(s): D02.0 - CARCINOMA IN SITU OF LARYNX SNOMED Code(s): 57306126 Plan: Agree with GI consult. Pt has history of persistent pulmonary nodules. The liver nodules are newer. Need biopsy. Will await GI evaluation and recommendations. Both of pt malignancies are remote. New primary vs metastatic disease RCC need to be considered. Cont work up.
--- NOTE | 2020-09-02 15:24 | P.CONS ---
History of Present Illness - Reason for Consult Consult date: 09/02/20 Pancreatitis, pedunculated diverticulum Requesting physician: Matthew Rand - Chief Complaint Abdominal pain, nausea and vomiting - History of Present Illness 89-year-old male with multiple medical comorbidities including GERD, asthma, BPH, hypothyroidism secondary to prior thyroidectomy and metastatic renal cell carcinoma to the lungs for which the patient has been on medical therapy with the oncology service who presented for evaluation of abdominal pain. He reports abdominal pain with associated nausea and vomiting described as sharp predominantly on the left side of his abdomen with associated tenderness. He denies any prior episodes of pancreatitis. No new medications. No change in bowel habits although the patient has not had a bowel movement and is currently reporting that he is not passing any flatus. Patient was found to have significant elevation in his amylase and lipase at 1906 and 13,857 on presentation. Liver enzymes were normal with total bilirubin 1.1, alkaline phosphatase 92, AST 23 and ALT 10. Other laboratory evaluation significant for WBC 22.8, hemoglobin 40.9 and platelet count of 230,000. The patient had imaging performed in evaluation including a computed tomography scan of the abdomen with an abnormal loop of bowel in the mid abdomen adjacent to the IVC likely representing focal inflammatory process or ischemia, large fluid filled diverticula in the right colon with no evidence of free air or bowel obstruction as well as multiple pulmonary and liver nodules highly suspicious for metastatic disease with no evidence of CBD dilation. Gallbladder ultrasound with a normal- appearing gallbladder with no stones and CBD unable to be visualized. The patient's last colonoscopy was performed in 2013 and significant for sigmoid diverticulosis with no polyps or neoplasm at that time. Review of Systems REVIEW OF SYSTEMS: CONSTITUTIONAL: Denies any fevers, chills, or fatigue. CARDIOVASCULAR: Denies any chest pain, palpitations high or low blood pressures RESPIRATORY: Denies any shortness of breath, hemoptysis or cough. GENITOURINARY: No dysuria or hematuria. MUSCULOSKELETAL: No weakness reported. SKIN: Denies any new rashes or lesions, jaundice or pallor. PSYCHIATRIC: Denies any depression or anxiety. NEUROLOGY: Denies headache, denies any new focal deficits. EARS/NOSE/THROAT: No recent hearing change, congestion, nasal discharge or sore throat. EYES: No pain in eyes, discharge or change in vision. GASTROINTESTINAL: As per HPI. Past Medical History Past Medical History: Asthma, Cancer, GERD/Reflux, Hypertension, Pneumonia, Prostate Disorder, Thyroid Disorder Additional Past Medical History / Comment(s): ASL cancer with a previous nephrectomy 1993 and subsequent development of metastatic disease, laryngeal cancer in 2013 by radiation therapy, systemic chemotherapy for bilateral metastatic pulmonary lesions related to renal cell carcinoma and this was diagnosed in 2011, chronic back pain, abdominal aortic aneurysm, chronic back pain and degenerative arthritis, compression fracture of the spine, osteoporosis, gastric ulcer with positivity towards H. pylori, hiatal hernia, Graves' disease with a previous thyroidectomy, varicose veins, migraine headache, lactose intolerance, rosacea History of Any Multi-Drug Resistant Organisms: None Reported Past Surgical History: Tonsillectomy Additional Past Surgical History / Comment(s): RIGHT KIDNEY REMOVED (1993), THYROID REMOVED (2002) WAS FOUND TO HAVE 2 OF THEM SO ONE REMOVED, LARYNGOSCOPY, NODULES REMOVED FROM LUNGS, COURTNEY CATARACTS, thyroidectomy left hemiarthroplasty for left subcapital fracture in 2015 Past Anesthesia/Blood Transfusion Reactions: Previous Problems w/ Anesthesia Additional Past Anesthesia/Blood Transfusion Reaction / Comm: STATES HE RECEIVED SUCCINYLCHOLINE, CAUSED WEAKNESS IN HIS LEGS, NEEDED A WALKER FOR SEVERAL DAYS AFTERWARDS , AND FELT WEAKNESS FOR 6 MONTHS. Smoking Status: Former smoker - Past Family History Brother(s) Family Medical History: Cancer Mother Family Medical History: Cancer Sister(s) Family Medical History: Cancer Father Family Medical History: Coronary Artery Disease (CAD) Medications and Allergies Home Medications Medication Instructions Recorded Confirmed Type Levothyroxine Sodium [Synthroid] 112 mcg PO DAILY 09/25/13 09/01/20 History Montelukast [Singulair] 10 mg PO DAILY 09/25/13 09/01/20 History Cholecalciferol (Vitamin D3) 2,000 unit PO DAILY 12/30/17 09/01/20 History [Vitamin D3] Losartan [Cozaar] 50 mg PO DAILY 12/30/17 09/01/20 History Omeprazole [PriLOSEC] 40 mg PO W/SUPPER 12/30/17 09/01/20 History Tamsulosin HCl [Flomax] 0.4 mg PO DAILY 12/30/17 09/01/20 History amLODIPine [Norvasc] 10 mg PO DAILY 12/30/17 09/01/20 History Fluticasone Propion/Salmeterol 2 puff INHALATION RT-BID 04/02/20 09/01/20 History [Wixela 500-50 Inhub] Allergies Allergy/AdvReac Type Severity Reaction Status Date / Time succinylcholine Allergy Severe Unknown Verified 09/01/20 15:03 [Succinylcholine] Iodinated Contrast Media AdvReac Unknown Verified 09/01/20 15:03 [Iodinated Contrast- Oral and IV Dye] Physical Exam Vitals: Vital Signs Temp Pulse Pulse Resp BP BP Pulse Ox 09/02/20 12:25 98.3 F 55 L 17 138/72 93 L 09/02/20 05: 97.5 F L 88 16 135/76 92 L 09/01/20 19:19 97.4 F L 84 16 128/74 92 L 09/01/20 17:37 98.4 F 99 18 106/71 09/01/20 16:49 93 18 131/83 94 L 09/01/20 15:39 89 18 116/70 95 09/01/20 14:59 89 18 121/80 95 09/01/20 13:59 98 F 85 18 124/75 95 Intake and Output 09/01/20 09/02/20 09/02/20 22:59 06:59 14:59 Intake Total 1560 Balance 1560 Intake: Intake, IV Titration 1560 Amount Sodium Chloride 0.9% 1, 1560 000 ml @ 130 mls/hr IV . Q7H42M [facility] Rx#:[id number] Other: Voiding Method Urinal # Voids 1 On physical examination, patient appears comfortable in no apparent distress. HEAD: Normocephalic, atraumatic. EYES: No scleral icterus. No conjunctival injection. MOUTH: No lesions, tongue midline. NECK: Trachea midline, no gross abnormalities. CHEST: Decreased air entry in all lung lópez. HEART: S1-S2 appreciated. ABDOMEN: Soft, nontender to palpation, mildly distended. Bowel sounds are positive. No organomegaly. No guarding or rigidity. EXTREMITIES: No pedal edema. SKIN: No rashes, no jaundice. NEUROLOGIC: Alert and oriented x3. No focal deficits. Results CBC & Chem 7: 09/01/20 14:19 09/01/20 14:19 Labs: Abnormal Lab Results - Last 24 Hours (Table) 09/01/20 09/01/20 09/02/20 Range/Units 14:19 14:19 07:10 WBC 22.8 H (3.8-10.6) k/uL Neutrophils # 21.3 H (1.3-7.7) k/uL Lymphocytes # 0.7 L (1.0-4.8) k/uL Sodium 135 L (137-145) mmol/L BUN 32 H (9-20) mg/dL Creatinine 1.84 H (0.66-1.25) mg/dL Glucose 129 H (74-99) mg/dL Amylase 1906 H* (30-110) U/L Lipase 12687 H (23-300) U/L Urine Protein 1+ H (Negative) Urine Blood Small H (Negative) Ur Leukocyte Esterase Large H (Negative) Urine RBC 13 H (0-5) /hpf Urine WBC 101 H (0-5) /hpf Urine WBC Clumps Few H (None) /hpf Urine Bacteria Rare H (None) /hpf Urine Mucus Rare H (None) /hpf CT scan - abdomen: report reviewed (computed tomography scan of the abdomen with an abnormal loop of bowel in the mid abdomen adjacent to the IVC likely representing focal inflammatory process or ischemia, large fluid filled diverticula in the right colon as well as multiple pulmonary and liver nodules) Assessment and Plan (1) Pancreatitis Narrative/Plan: 89-year-old male presenting with abdominal pain, nausea and vomiting and found to have markedly elevated amylase and 1906 and lipase of 13,857 and currently receiving treatment for acute uncomplicated pancreatitis with no inflammation or abnormal findings of the pancreas noted. 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 Unclear et iology of pancreatitis with patient denying any alcohol use, no evidence of gallstones or biliary ductal dilation on imaging, he denies any new medications or exposures. Current Visit: Yes Status: Acute Priority: High Code(s): K85.90 - ACUTE PANCREATITIS WITHOUT NECROSIS OR INFECTION, UNSP SNOMED Code(s): 26774054 (2) Abnormal CT of the abdomen Narrative/Plan: computed tomography scan of the abdomen with an abnormal loop of bowel in the mid abdomen adjacent to the IVC likely representing focal inflammatory process or ischemia, large fluid filled diverticula in the right colon with no evidence of free air or bowel obstruction as well as multiple pulmonary and liver nodules highly suspicious for metastatic disease with no evidence of CBD dilation. Unclear significance of fluid-filled pedunculated diverticulum in the right colon. Patient currently denying any bowel movements or flatus which is likely related to ileus in the setting of pancreatitis. Last colonoscopy performed in 2013 with findings of diverticulosis at that time. Current Visit: Yes Status: Acute Code(s): R93.5 - ABN FINDINGS ON DX IMAGING OF ABD REGIONS, INC RETROPERITON SNOMED Code(s): 70191928471356422 (3) Liver nodule Current Visit: Yes Status: Acute Code(s): K76.89 - OTHER SPECIFIED DISEASES OF LIVER SNOMED Code(s): 869414075 (4) Epigastric pain Current Visit: Yes Status: Acute Code(s): R10.13 - EPIGASTRIC PAIN SNOMED Code(s): 23440383 (5) Lung metastasis Current Visit: Yes Status: Acute Priority: Medium Code(s): C78.00 - SECONDARY MALIGNANT NEOPLASM OF UNSPECIFIED LUNG SNOMED Code(s): 96802441 (6) Renal cell adenocarcinoma Current Visit: Yes Status: Chronic Priority: Medium Code(s): C64.9 - PARAM GNANT NEOPLASM OF UNSP KIDNEY, EXCEPT RENAL PELVIS SNOMED Code(s): 620269386 Plan: Supportive care Nothing by mouth except for ice chips Continue pain control Ambulation as tolerated Tumor markers ordered Trivial side level ordered Computed tomography scan of the abdomen and ultrasound abdomen reviewed No plans for endoscopic evaluation in the setting of pancreatitis and possible ileus, insufflation of air during procedure is not recommended due to the high risk of perforation, if further evaluation of the suspected colonic diverticulum is required imaging can be performed in the future Oncology service has been consulted to see the patient, patient may benefit from higher guided liver biopsy versus repeat PET scan given suspected metastatic disease to the liver Thank you for allowing us to participate in the care of the patient we will continue to follow
[2020-09-02] MEDS ORDERED: ACETAMINOPHEN TAB 325 MG TAB PO PRN (17:00)
--- NOTE | 2020-09-02 17:15 | P.HPIM ---
History of Present Illness H&P Date: 09/09/20 89 years old male with past medical history of renal cell carcinoma originally diagnosed in 1993 followed by a right nephrectomy. Patient followed Dr. Warner for his care. He did have a lung nodule and since 0 and multiple lung nodules for which patient had a PET scan in November 2011 with no significant uptake. On 2011 patient had a VAC and the left upper lobe wedge resection biopsy which revealed a metastatic clear cell carcinoma. 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 Patient had multiple imaging including a brain MRI bone scan in December 2011 which were negative for metastasis. He did have a CAT scan of the chest in 01/07/2012 with slight improvement in his lung nodules. He received oral pazotinib for 3 years which was discontinued in February 2015 due to fatigue. Patient was last admitted in March/2024 for possible COPD exacerbation and chest wall pain. Patient comes in today with severe epigastric abdominal and distention that started 3 in the morning yesterday. Patient also documents increased cough with sputum production but denies any shortness of breath. He denies any difficulty swallowing or unintentional weight loss but does have loss of appetite. Patient denies any change in bowel habits, no diarrhea or black stools. Last colonoscopy was 2013. The sigmoid diverticulosis but no polyps or neoplasm. On evaluation in the ER patient was afebrile pulse 85 respiratory rate 18 blood pressure 120/75. He was noted to have pancreatitis. And was admitted for IV hydration and kept nothing by mouth. Labs are reviewed patient with leukocytosis of 22,000, hemoglobin 14.9 hematocrit 44 platelet 238 sodium 135 potassium 4.9 chloride 104 bicarb 23 BUN 32 creatinine 1.84 glucose of 129, mildly as of 1900 and lipase 13,000 857. UA was positive for 100 WBCs last leukocyte esterase and RBCs. 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 Influenza and COVID-19 virus was negative. gallbladder ultrasound was negative for gallstones or dilation CBD. GI consulted and oncology consulted for new lesions. CT abdomen suggested abnormal loop of bowel in the mid abdomen sug gestive of focal inflammation process or ischemia. Large fluid-filled diverticular of the right colon without evidence of inflammation. No free intraperitoneal air or fluid noted and surgical absence of right kidney. Multiple pulmonary and liver masses suspected of metastatic disease. Start eveline ent on Zosyn 3.375 every 8 hours per for UTI and diverticulitis. IR consult for possible liver biopsy Review of Systems Constitutional: Denies chills, Denies fever, Denies lethargy, Denies malaise, endorses poor appetite, Denies weakness, Denies weight loss Eyes: denies decreased vision, denies diplopia, denies discharge, denies pain Ears: deny: decreased hearing Ears, nose, mouth and throat: Denies dental pain, Denies headache, Denies nasal discharge, Denies nose pain Cardiovascular: Denies chest pain, Denies decreased exercise tolerance, Denies edema, Denies high blood pressure, Denies irregular heart beat, Denies palpitations, Denies paroxysmal nocturnal dyspnea, Denies rapid heart beat, Denies shortness of breath Respiratory: Denies congestion, Denies cough, endorses cough with sputum, Denies dyspnea, Denies home oxygen, Denies wheezing Gastrointestinal: Endorses abdominal pain, Denies change in bowel habits, Denies coffee ground emesis, endorses early satiety, endorses excessive gas, endorses heartburn, Denies hematemesis, Denies hematochezia, Denies loss of appetite, Denies nausea, Denies vomiting Genitourinary: Denies dysuria, Denies flank pain, Denies kidney stones, Denies menorrhagia, Denies urgency, Denies urinary frequency Musculoskeletal: Endorses gait dysfunction, endorses limitation of motion, Denies morning stiffness, Denies muscle cramps Integumentary: Denies rash, Denies wounds, Denies brittle nails, Denies change in hair/nails, Denies darkening of skin Neurological: Denies balance difficulties, Denies change in speech, Denies double vision, Denies gait dysfunction, Denies loss of vision, Denies motor disturbance, Denies numbness, Denies paralysis, Denies paresthesias, Denies seizures Psychiatric: Denies anxiety, Denies depression Endocrine: Denies excessive sweating, Denies excessive thirst, Denies high blood sugars, Denies palpitations Hematologic/Lymphatic: Denies easy bruising, Denies lymphadenopathy Past Medical History Past Medical History: Asthma, Cancer, GERD/Reflux, Hypertension, Pneumonia, Pro state Disorder, Thyroid Disorder Additional Past Medical History / Comment(s): ASL cancer with a previous nephrectomy 1993 and subsequent development of metastatic disease, laryngeal cancer in 2013 by radiation therapy, systemic chemotherapy for bilateral metastatic pulmonary lesions related to renal cell carcinoma and this was diagnosed in 2011, chronic back pain, abdominal aortic aneurysm, chronic back pain and degenerative arthritis, compression fracture of the spine, osteoporosis, gastric ulcer with positivity towards H. pylori, hiatal hernia, Graves' disease with a previous thyroidectomy, varicose veins, migraine headache, lactose intolerance, rosacea History of Any Multi-Drug Resistant Organisms: None Reported Past Surgical History: Tonsillectomy Additional Past Surgical History / Comment(s): RIGHT KIDNEY REMOVED (1993), THYROID REMOVED (2002) WAS FOUND TO HAVE 2 OF THEM SO ONE REMOVED, LARYNGOSCOPY, NODULES REMOVED FROM LUNGS, COURTNEY CATARACTS, thyroidectomy left hemiarthroplasty f or left subcapital fracture in 2015 Past Anesthesia/Blood Transfusion Reactions: Previous Problems w/ Anesthesia Additional Past Anesthesia/Blood Transfusion Reaction / Comment(s): STATES HE RECEIVED SUCCINYLCHOLINE, CAUSED WEAKNESS IN HIS LEGS, NEEDED A WALKER FOR SEVERAL DAYS AFTERWARDS , AND FELT WEAKNESS FOR 6 MONTHS. Smoking Status: Former smoker - Past Family History Brother(s) Family Medical History: Cancer Mother Family Medical History: Cancer Sister(s) Family Medical History: Cancer Father Family Medical History: Coronary Artery Disease (CAD) Medications and Allergies Home Medications Medication Instructions Recorded Confirmed Type Levothyroxine Sodium [Synthroid] 112 mcg PO DAILY 09/25/13 09/01/20 History Montelukast [Singulair] 10 mg PO DAILY 09/25/13 09/01/20 History Cholecalciferol (Vitamin D3) 2,000 unit PO DAILY 12/30/17 09/01/20 History [Vitamin D3] Losartan [Cozaar] 50 mg PO DAILY 12/30/17 09/01/20 History Omeprazole [PriLOSEC] 40 mg PO W/SUPPER 12/30/17 09/01/20 History Tamsulosin HCl [Flomax] 0.4 mg PO DAILY 12/30/17 09/01/20 History amLODIPine [Norvasc] 10 mg PO DAILY 12/30/17 09/01/20 History Fluticasone Propion/Salmeterol 2 puff INHALATION RT-BID 04/02/20 09/01/20 H istory [Wixela 500-50 Inhub] Allergies Allergy/AdvReac Type Severity Reaction Status Date / Time succinylcholine Allergy Severe Unknown Verified 09/01/20 15:03 [Succinylcholine] Iodinated Contrast Media AdvReac Unknown Verified 09/01/20 15:03 [Iodinated Contrast- Oral and IV Dye] Physical Exam Vitals: Vital Signs Temp Pulse Pulse Resp BP BP Pulse Ox 09/02/20 12:25 98.3 F 55 L 17 138/72 93 L 09/02/20 05:19 97.5 F L 88 16 135/76 92 L 09/01/20 19:19 97.4 F L 84 16 128/74 92 L 09/01/20 17:37 98.4 F 99 18 106/71 09/01/20 16:49 93 18 131/83 94 L 09/01/20 15:39 89 18 116/70 95 09/01/20 14:59 89 18 121/80 95 Intake and Output 09/01/20 09/02/20 09/02/20 22:59 06:59 14:59 Intake Total 1560 Balance 1560 Intake: Intake, IV Titration 1560 Amount Sodium Chloride 0.9% 1, 1560 000 ml @ 130 mls/hr IV . Q7H42M [facility] Rx#:[id number] Other: Voiding Method Urinal # Voids 1 - Constitutional General appearance: cooperative, mild acute distress, obese - EENT Eyes: anicteric sclerae, PERRLA, normal appearance ENT: hearing grossly normal - Neck Neck: no lymphadenopathy, normal ROM, no other, no rigidity, no stridor, no thyromegaly - Respiratory Respiratory: bilateral: CTA, negative: diminished, dullness, rales, rhonchi - Cardiovascular Rhythm: regular Heart sounds: normal: S1, S2 Abnormal Heart Sounds: no systolic murmur, no diastolic murmur, no rub, no S3 Gallop, no S4 Gallop, no click, 1+ pitting edema - Gastrointestinal General gastrointestinal: soft distended abdomen with reduced bowel sounds - Integumentary Integumentary: no rash - Neurologic Neurologic: CNII-XII intact - Musculoskeletal Musculoskeletal: gait not assessed strength equal bilaterally - Psychiatric Psychiatric: A&O x's 3, appropriate affect Results CBC & Chem 7: 09/01/20 14:19 09/01/20 14:19 Labs: Abnormal Lab Results - Last 24 Hours (Table) 09/01/20 09/01/20 09/02/20 Range/Units 14:19 14:19 07:10 WBC 22.8 H (3.8-10.6) k/uL Neutrophils # 21.3 H (1.3-7.7) k/uL Lymphocytes # 0.7 L (1.0-4.8) k/uL Sodium 135 L (137-145) mmol/L BUN 32 H (9-20) mg/dL Creatinine 1.84 H (0.66-1.25) mg/dL Glucose 129 H (74-99) mg/dL Amylase 1906 H* (30-110) U/L Lipase 36770 H (23-300) U/L Urine Protein 1+ H (Negative) Urine Blood Small H (Negative) Ur Leukocyte Esterase Large H (Negative) Urine RBC 13 H (0-5) /hpf Urine WBC 101 H (0-5) /hpf Urine WBC Clumps Few H (None) /hpf Urine Bacteria Rare H (None) /hpf Urine Mucus Rare H (None) /hpf Thrombosis Risk Factor Assmnt - DVT/VTE Prophylaxis DVT/VTE Prophylaxis: Pharmacologic Prophylaxis ordered - Choose All That Apply Each Risk Factor Represents 2 Points: Malignancy Each Risk Factor Represents 3 Points: Age 75 years or older Thrombosis Risk Factor Assessment Total Risk Factor Score: 5 Thrombosis Risk Factor Assessment Level: High Risk Assessment and Plan Plan: 1. Acute abdominal pain secondary to pancreatitis and possible EES. Abdominal x-ray ordered. Keep patient nothing by mouth except oral medication. Continue IV fluids at 1 30 mL/h. 2. Acute Pancreatitis unclear etiology. Ultrasound gallbladder negative for gallstones. No alcohol use. GI consulted. Keep patient nothing by mouth continue on normal saline at 1 30 mL/h repeat lipase. Tumor markers ordered as patient has previous history of metastatic renal cell carcinoma 3. Sepsis secondary to Acute diverticulitis with CAT scan positive for focal inflammatory process involving the right colon with pedunculated diverticuli in the right colon. Continue Zosyn. ESR CRP ordered. Tumor markers ordered to rule out primary colon carcinoma 4. Sepsis secondary to Acute UTI, Positive for infection continue Zosyn until urine cultures are resulted 5. Multiple new liver lesions and lung lesion concerning for metastatic versus primary disorder. Liver biopsy needed. I R consult placed 6 bilateral lower extremity edema venous Doppler ordered to rule out PE 7. COPD not in exacerbation. Continue DuoNeb treatments 4 times daily as needed 8. Mild intermittent asthma, stable. 9. History of renal cell cancer status post right-sided nephrectomy. 10. Metastatic renal cell cancer to the lungs . Patient had VATS and left upper lobe biopsies suggestive of clear cell carcinoma status post chemotherapy - pazotinib till feb 2015, discontinued due to fatigue 11. 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 12. Hypertension. Continue amlodipine 10 mg at bedtime. Hold losartan 13. Hypothyroidism. Continue levothyroxine 112 g daily. 14. Benign prostatic hypertrophy. Continue Flomax 0.4 mg daily. 15. Acute kidney injury secondary to ATN with Chronic kidney disease stage III. Continue to monitor. Avoid nephrotoxic agents. Losartan on hold for now. 16. DVT prophylaxis. Lovenox. 17. GI prophylaxis and GERD. Continue pantoprazole 40 mg supper. 18 disposition patient is undergoing patient's night for stabilization 19 CODE STATUS discussed with patient patient would like to be a no code
--- NOTE | 2020-09-02 17:16 | XR ---
EXAMINATION TYPE: XR chest 1V DATE OF EXAM: 09/02/2020 COMPARISON: Yesterday HISTORY: Right upper quadrant pain. Fever. Cough. TECHNIQUE: Single view FINDINGS: There is coarse pulmonary interstitial infiltrates throughout both lungs. There is lateral basilar atelectasis. There is poor inspiration. There are sternal wires. Heart is not grossly enlarge d. Thoracic aorta is atheromatous. IMPRESSION: Basilar pulmonary infiltrates and atelectasis increased slightly compared to yesterday. M ild heart failure not excluded.
[2020-09-02] MEDS ORDERED: PANTOPRAZOLE 40 MG TABLET PO SCH (17:30)
[2020-09-02 17:36] LABS: Basophils % (A) 0 %; Eosinophils # (A) 0.1 k/uL (0-0.7); Eosinophils % (A) 0 %; HCT 42.8 % (39.0-53.0); HGB 14.1 gm/dL (13.0-17.5); Lymphocytes # (A) 0.9 k/uL (1.0-4.8); Lymphocytes % (A) 4 %; MCH 31.4 pg (25.0-35.0); MCV 95.1 fL (80.0-100.0); Monocytes # (A) 0.7 k/uL (0-1.0); Monocytes % (A) 3 %; Neutrophils # (A) 24.8 k/uL (1.3-7.7); Neutrophils % (A) 93 %; Platelet Count 214 k/uL (150-450); RDW 12.6 % (11.5-15.5); WBC 26.5 k/uL (3.8-10.6)
[2020-09-02 17:49] LABS: ALT 10 U/L (4-49); AST 26 U/L (17-59); African American GFR (CKD) 35 (>60 ml/min/1.73 sqM); Albumin 3.4 g/dL (3.5-5.0); Albumin/Globulin Ratio 1.1; Alkaline Phosphatase 80 U/L (38-126); Anion Gap 6 mmol/L; Blood Urea Nitrogen 35 mg/dL (9-20); Calcium 8.8 mg/dL (8.4-10.2); Carbon Dioxide 26 mmol/L (22-30); Chloride 105 mmol/L (98-107); Globulin 3.1 g/dL; Glucose 95 mg/dL (74-99); Non-African American GFR(CKD) 30 (>60 ml/min/1.73 sqM); Potassium 4.9 mmol/L (3.5-5.1); Sodium 137 mmol/L (137-145); Total Bilirubin 1.5 mg/dL (0.2-1.3); Total Protein 6.5 g/dL (6.3-8.2)
[2020-09-02 17:51] LABS: Magnesium 1.9 mg/dL (1.6-2.3)
[2020-09-02 18:01] LABS: C Reactive Protein 19.1 mg/dL (<1.0)
[2020-09-02 18:26] LABS: Erythrocyte Sedimentation Rate 33 mm/hr (0-15)
--- NOTE | 2020-09-02 18:41 | US ---
EXAMINATION TYPE: US venous doppler duplex LE DATE OF EXAM: 09/02/2020 6:21 PM COMPARISON: US CLINICAL HISTORY: r/o DVT. Leg pain. R/O DVT. No hx of DVT. Patient does not take a blood thinner. SIDE PERFORMED: Bilateral TECHNIQUE: The lower extremity deep venous system is examined utilizing real time linear array sonog tushar with graded compression, doppler sonography and color-flow sonography. VESSELS IMAGED: Common Femoral Vein Deep Femoral Vein Greater Saphenous Vein * Femoral Vein Popliteal Vein Small Saphenous Vein * Proximal Calf Veins (* superficial vessels) Right Leg: No evidence of DVT in veins imaged at this time. Left Leg: No evidence of DVT in veins imaged at this time. Complex area seen left medial popliteal a clovis measuring 6.8 x 2.9 x 1.3 cm. IMPRESSION: No evidence of deep vein thrombosis in both legs. There is left side popliteal cyst note d.
[2020-09-02] MEDS: guaiFENesin 600 MG TABLET.ER PO SCH (19:56)
[2020-09-02] MEDS: bisacodyL 10 MG SUPP RECTAL SCH (19:56)
[2020-09-02] MEDS: SYMBICORT 160-4.5 MCG INHALER INHALATION SCH (21:25)
[2020-09-02] MEDS: MORPHINE SULFATE 4 MG/ML SYRINGE IVP PRN (23:41)
[2020-09-03] MEDS: PIPERACILLIN-TAZOBACTAM 3.375 GM in SODIUM CHLORIDE 0.9% 100 ML IVPB SCH ×3 (02:09→21:23)
[2020-09-03] MEDS: LEVOTHYROXINE 112 MCG TAB PO SCH (05:53)
[2020-09-03] MEDS: guaiFENesin 600 MG TABLET.ER PO SCH ×2 (07:47→21:22)
[2020-09-03] MEDS: TAMSULOSIN 0.4 MG CAP.ER.24H PO SCH (07:47)
[2020-09-03] MEDS: amLODIPine 10 MG TAB PO SCH (07:47)
[2020-09-03] MEDS: MONTELUKAST 10 MG TAB PO SCH (07:47)
[2020-09-03] MEDS: PANTOPRAZOLE 40 MG TABLET PO SCH (07:47)
[2020-09-03] MEDS: MORPHINE SULFATE 4 MG/ML SYRINGE IVP PRN ×2 (07:48→17:29)
[2020-09-03] MEDS: bisacodyL 10 MG SUPP RECTAL SCH ×2 (07:48→07:53)
[2020-09-03] MEDS: SODIUM CHLORIDE 0.9% 1,000 ML IV SCH (07:49)
[2020-09-03] MEDS ORDERED: ENOXAPARIN 40 MG/0.4 ML SYRINGE SQ SCH (09:00)
[2020-09-03] MEDS: SYMBICORT 160-4.5 MCG INHALER INHALATION SCH ×2 (09:06→20:15)
[2020-09-03] MEDS ORDERED: bisacodyL 5 MG TABLET.DR PO PRN (10:27)
[2020-09-03] MEDS ORDERED: NA PHOS,M-B/NA PHOS,DI-BA 133 ML ENEMA RECTAL ONE (10:30)
[2020-09-03 11:56] LABS: Carcinoembryonic Antigen 1.2 ng/mL (0.0-4.9)
[2020-09-03 12:17] LABS: Alpha Fetoprotein, Tumor Mkr <2.5 ng/mL (0.0-7.9)
[2020-09-03 12:25] LABS: Cancer Antigen 19-9 9.1 U/mL (0.0-34.9)
--- NOTE | 2020-09-03 12:27 | P.PN ---
Subjective Progress Note Date: 09/03/20 Principal diagnosis: Abdominal pain, nausea and vomiting Patient was seen and examined sitting up in his bedside chair. He states his abdominal pain has improved, however he is complaining of lower back pain which he states is chronic but worse today. He denies any nausea or vomiting. He denies any bowel movement or passing gas. His lipase improved today to 182. Triglycerides are 262. AFP, CA-19-9, and CEA pending results. Objective - Vital Signs Vital signs: Vital Signs Temp 98 F 09/03/20 11:51 Pulse 107 H 09/03/20 11:51 Resp 21 09/03/20 11:51 BP 119/67 09/03/20 05:00 Pulse Ox 93 L 09/03/20 11:51 Intake & Output 09/02/20 09/03/20 09/03/20 18:59 06:59 18:59 Intake Total 1210 Balance 1210 Intake: Intake, IV Titration 1200 Amount Piperacillin-Tazobactam 3 200 .375 gm In Sodium Chloride 0.9% 100 ml @ 25 mls/hr IVPB Q8H [facility] Rx#: [id number] Sodium Chloride 0.9% 1, 1000 000 ml @ 130 mls/hr IV . Q7H42M [facility] Rx#:[id number] Oral 10 Other: Voiding Method Urinal Toilet Toilet Urinal Urinal # Voids 4 2 # Bowel Movements 0 - Exam General appearance: The patient is alert, oriented, appears in no acute dist ress. HET: Head is normocephalic and atraumatic. Conjunctiva pink. Sclera anicteric. Neck: Supple without lymphadenopathy. Abdomen: Soft, gastroc and left upper quadrant tenderness, nondistended with bowel sounds. No guarding or rigidity. Extremities: Normal skin color and turgor. No pedal edema Skin: No rashes, no jaundice Neurological: No focal deficits. Alert and oriented 3. - Labs CBC & Chem 7: 09/02/20 17:06 09/02/20 17:06 Labs: Abnormal Lab Results - Last 24 Hours (Table) 09/02/20 09/02/20 09/02/20 Range/Units 17:06 17:06 17:06 WBC 26.5 H (3.8-10.6) k/uL Neutrophils # 24.8 H (1.3-7.7) k/uL Lymphocytes # 0.9 L (1.0-4.8) k/uL ESR 33 H (0-15) mm/hr BUN 35 H (9-20) mg/dL Creatinine 1.94 H (0.66-1.25) mg/dL Total Bilirubin 1.5 H (0.2-1.3) mg/dL C-Reactive Protein 19.1 H (<1.0) mg/dL Albumin 3.4 L (3.5-5.0) g/dL Amylase (23-121) U/L Lipase 2294 H (23-300) U/L 09/03/20 Range/Units 06:31 WBC (3.8-10.6) k/uL Neutrophils # (1.3-7.7) k/uL Lymphocytes # (1.0-4.8) k/uL ESR (0-15) mm/hr BUN (9-20) mg/dL Creatinine (0.66-1.25) mg/dL Total Bilirubin (0.2-1.3) mg/dL C-Reactive Protein (<1.0) mg/dL Albumin (3.5-5.0) g/dL Amylase 282 H (23-121) U/L Lipase 182 H (23-300) U/L Microbiology - Last 24 Hours (Table) 09/02/20 07:10 Urine Culture - Preliminary Urine,Voided Assessment and Plan (1) Pancreatitis Narrative/Plan: 89-year-old male presenting with abdominal pain, nausea and vomiting and found to have markedly elevated amylase and 1906 and lipase of 13,857 and currently receiving treatment for acute uncomplicated pancreatitis with no inflammation or abnormal findings of the pancreas noted. 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 Unclear etiology of pancreatitis with patient denying any alcohol use, no evidence of gallstones or biliary ductal dilation on imaging, he denies any new medications or exposures. Current Visit: Yes Status: Acute Priority: High Code(s): K85.90 - ACUTE PANCREATITIS WITHOUT NECROSIS OR INFECTION, UNSP SNOMED Code(s): 43556069 (2) Abnormal CT of the abdomen Narrative/Plan: computed tomography scan of the abdomen with an abnormal loop of bowel in the mid abdomen adjacent to the IVC likely representing focal inflammatory process or ischemia, large fluid filled diverticula in the right colon with no evidence of free air or bowel obstruction as well as multiple pulmonary and liver nodules highly suspicious for metastatic disease with no evidence of CBD dilation. Unclear significance of fluid-filled pedunculated diverticulum in the right colon. Patient currently denying any bowel movements or flatus which is likely related to ileus in the setting of pancreatitis. Last colonoscopy performed in 2013 with findings of Current Visit: Yes Status: Acute Code(s): R93.5 - ABN FINDINGS ON DX IMAGING OF ABD REGIONS, INC RETROPERITON SNOMED Code(s): 87060754617411095 (3) Epigastric pain Current Visit: Yes Status: Acute Code(s): R10.13 - EPIGASTRIC PAIN SNOMED Code(s): 61740002 (4) Liver nodule Current Visit: Yes Status: Acute Code(s): K76.89 - OTHER SPECIFIED DISEASES OF LIVER SNOMED Code(s): 237984638 (5) Lung metastasis Current Visit: Yes Status: Acute Priority: Medium Code(s): C78.00 - SEC ONDARY MALIGNANT NEOPLASM OF UNSPECIFIED LUNG SNOMED Code(s): 30249624 (6) Renal cell adenocarcinoma Current Visit: Yes Status: Chronic Priority: Medium Code(s): C64.9 - MALIGNANT NEOPLASM OF UNSP KIDNEY, EXCEPT RENAL PELVIS SNOMED Code(s): 786352103 Plan: Supportive care Advance to clear liquid diet Continue pain control Ambulation as tolerated Tumor markers ordered, pending results Triglyceride level ordered Computed tomography scan of the abdomen and ultrasound abdomen reviewed No plans for endoscopic evaluation in the setting of pancreatitis and possible ileus, insufflation of air during procedure is not recommended due to the high risk of perforation, if further evaluation of the suspected colonic diverticulum is required imaging can be performed in the future Oncology service has been consulted to see the patient, patient may benefit from US guided liver biopsy versus repeat PET scan given suspected metastatic disease to the liver Thank you for allowing us to participate in the care of the patient we will continue to follow Dr. [place] I agree with the dictator's note, documented as a scribe by Tania Jaquez.
--- NOTE | 2020-09-03 12:57 | P.PN ---
Subjective Progress Note Date: 09/03/20 89 years old male with past medical history of renal cell carcinoma originally diagnosed in 1993 followed by a right nephrectomy. Patient followed Dr. Warner for his care. He did have a lung nodule and since 0 and multiple lung nodules for which patient had a PET scan in November 2011 with no significant uptake. On 2011 patient had a VAC and the left upper lobe wedge resection biopsy which revealed a metastatic clear cell carcinoma. 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 Patient had multiple imaging including a brain MRI bone scan in December 2011 which were negative for metastasis. He did have a CAT scan of the chest in 01/07/2012 with slight improvement in his lung nodules. He received oral pazotinib for 3 years which was discontinued in February 2015 due to fatigue. Patient was last admitted in March/2024 for possible COPD exacerbation and chest wall pain. Patient comes in today with severe epigastric abdominal and distention that started 3 in the morning yesterday. Patient also documents increased cough with sputum production but denies any shortness of breath. He denies any difficulty swallowing or unintentional weight loss but does have loss of appetite. Patient denies any change in bowel habits, no diarrhea or black stools. Last colonoscopy was 2013. The sigmoid diverticulosis but no polyps or neoplasm. On evaluation in the ER patient was afebrile pulse 85 respiratory rate 18 blood pressure 120/75. He was noted to have pancreatitis. And was admitted for IV hydration and kept nothing by mouth. Labs are reviewed patient with leukocytosis of 22,000, hemoglobin 14.9 hematocrit 44 platelet 238 sodium 135 potassium 4.9 chloride 104 bicarb 23 BUN 32 creatinine 1.84 glucose of 129, mildly as of 1900 and lipase 13,000 857. UA was positive for 100 WBCs last leukocyte esterase and RBCs. 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 Influenza and COVID-19 virus was negative. gallbladder ultrasound was negative for gallstones or dilation CBD. GI consulted and oncology consulted for new lesions. CT abdomen suggested abnormal loop of bowel in the mid abdomen suggestive of focal inflammation process or ischemia. Large fluid-filled diverticular of the right colon without evidence of inflammation. No free intraperitoneal air or fluid noted and surgical absence of right kidney. Multiple pulmonary and liver masses suspected of metastatic disease. Start patient on Zosyn 3.375 every 8 hours per for UTI and diverticulitis. IR consult for possible liver biopsy 09/03 patient examined bedside. Continues to complain of abdominal distention with no bowel movement since Wednesday. Abdominal x-ray revealed yesterday had nonspecific bowelsigns of obstruction noted. Patient's vitals evaluated patient had a fever of 98 pulse 96 respiratory rate 22 blood pressure 119/67 oxygen saturation 92% on 2 L. Labs are reviewed patient's hemoglobin is 14.1 WBC was elevated at 26 platelet 214 ESR is elevated CRP is 19 lipase has improved to 182 CMP reviewed patient's sodium is 137 potassium 4.9 chloride 105 BUN 35 creatinine 1.94 chest x-ray revealed suggest basilar infiltrate concerning for mild CHF. Venous Doppler were obtained yesterday are negative for bilateral D VTs does have popliteal cyst on the left. Rug Drying Machine Operator's notes were reviewed. GI recommends advancing to clear liquid diet. Tumor markers including AFP, CEA, CA 19/9 antigen is negative triglycerides pending. No plan for endoscopy evaluation in the setting of pancreatitis and possible ileus. Case discussed with oncology, liver lesions appears to be chronic. Liver biopsy is not indicated at this moment. Pancreatitis could be a result of pancreatic lesions from renal cell carcinoma. We'll evaluate with an MRI without contrast as patient cannot receive contrast due to her current kidney functions. Continue Zosyn for possible diverticulitis. Dulcolax suppository given yesterday with no improvement of patient's constipation. Fleet enema ordered for today. Surgery consulted for possible ischemic bowel though lactic acid is normal. ProBNP is normal unlikely to have CHF at this moment. Repeat chest x-ray tomorrow we will discontinue IV fluids due to concern for volume overload ROS Constitutional: Denies chills, Denies fever, Denies lethargy, Denies malaise, Denies poor appetite, Denies weakness, Denies weight loss Eyes: denies decreased vision, denies diplopia, denies discharge, denies pain Ears: deny: decreased hearing Ears, nose, mouth and throat: Denies dental pain, Denies headache, Denies nasal discharge, Denies nose pain Cardiovascular: Denies chest pain, Denies decreased exercise tolerance, Denies edema, Denies high blood pressure, Denies irregular heart beat, Denies palpitations, Denies paroxysmal nocturnal dyspnea, Denies rapid heart beat, Denies shortness of breath Respiratory: Endorses congestion, Denies cough, Denies cough with sputum, Denies dyspnea, Denies home oxygen, Denies wheezing Gastrointestinal: Endorses abdominal discomfort and bloating, Denies change in bowel habits, Denies coffee ground emesis, Denies early satiety, Denies excessive gas, Denies heartburn, Denies hematemesis, Denies hematochezia, Denies loss of appetite, Denies nausea, Denies vomiting Genitourinary: Denies dysuria, Denies flank pain, Denies kidney stones, Denies menorrhagia, Denies urgency, Denies urinary frequency Musculoskeletal: Denies gait dysfunction, Denies limitation of motion, Denies morning stiffness, Denies muscle cramps Integumentary: Denies rash, Denies wounds, Denies brittle nails, Denies change in hair/nails, Denies darkening of skin Neurological: Denies balance difficulties, Denies change in speech, Denies double vision, Denies gait dysfunction, Denies loss of vision, Denies motor disturbance, Denies numbness, Denies paralysis, Denies paresthesias, Denies seizures Psychiatric: Denies anxiety, Denies depression Objective - Vital Signs Vital signs: Vital Signs Temp 98 F 09/03/20 11:51 Pulse 107 H 09/03/20 11:51 Resp 21 09/03/20 11:51 BP 119/67 09/03/20 05:00 Pulse Ox 93 L 09/03/20 11:51 Intake & Output 09/02/20 09/03/20 09/03/20 18:59 06:59 18:59 Intake Total 1210 Balance 1210 Intake: Intake, IV Titration 1200 Amount Piperacillin-Tazobactam 3 200 .375 gm In Sodium Chloride 0.9% 100 ml @ 25 mls/hr IVPB Q8H DENEEN Rx#: [id number] Sodium Chloride 0.9% 1, 1000 000 ml @ 130 mls/hr IV . Q7H42M DENEEN Rx#:[id number] Oral 10 Other: Voiding Method Urinal Toilet Toilet Urinal Urinal # Voids 4 2 # Bowel Movements 0 - Exam - Constitutional General appearance: cooperative, no acute distress, obese - EENT Eyes: anicteric sclerae, PERRLA, normal appearance ENT: hearing grossly normal - Neck Neck: no lymphadenopathy, normal ROM, no other, no rigidity, no stridor, no thyromegaly - Respiratory Respiratory: bilateral air entry bilaterally no crackles or rhonchi noted- Cardiovascular Rhythm: regular Heart sounds: normal: S1, S2 Abnormal Heart Sounds: no systolic murmur, no diastolic murmur, no rub, no S3 Gallop, no S4 Gallop, no click, no other - Gastrointestinal General gastrointestinal: normal bowel sounds, soft abdominal care distended - Integumentary Integumentary: no rash - Neurologic Neurologic: No motor or sensory deficit - Musculoskeletal Musculoskeletal: gait normal, strength equal bilaterally - Psychiatric Psychiatric: A&O x's 3, appropriate affect - Labs CBC & Chem 7: 09/02/20 17:06 09/02/20 17:06 Labs: Abnormal Lab Results - Last 24 Hours (Table) 09/02/20 09/02/20 09/02/20 Range/Units 17:06 17:06 17:06 WBC 26.5 H (3.8-10.6) k/uL Neutrophils # 24.8 H (1.3-7.7) k/uL Lymphocytes # 0.9 L (1.0-4.8) k/uL ESR 33 H (0-15) mm/hr BUN 35 H (9-20) mg/dL Creatinine 1.94 H (0.66-1.25) mg/dL Total Bilirubin 1.5 H (0.2-1.3) mg/dL C-Reactive Protein 19.1 H (<1.0) mg/dL Albumin 3.4 L (3.5-5.0) g/dL Amylase (23-121) U/L Lipase 2294 H (23-300) U/L 09/03/20 Range/Units 06:31 WBC (3.8-10.6) k/uL Neutrophils # (1.3-7.7) k/uL Lymphocytes # (1.0-4.8) k/uL ESR (0-15) mm/hr BUN (9-20) mg/dL Creatinine (0.66-1.25) mg/dL Total Bilirubin (0.2-1.3) mg/dL C-Reactive Protein (<1.0) mg/dL Albumin (3.5-5.0) g/dL Amylase 282 H (23-121) U/L Lipase 182 H (23-300) U/L Microbiology - Last 24 Hours (Table) 09/02/20 07:10 Urine Culture - Final Urine,Voided Assessment and Plan Plan: 1. Acute abdominal pain secondary to pancreatitis and possible ileus. Abdominal x-ray nonspecific abdomen. Diet advanced to clear liquid diet advance diet as tolerated medication. IV fluids discontinued and 2. Acute Pancreatitis unclear etiology. Ultrasound gallbladder negative for gallstones. No alcohol use. GI consulted. It is improved since yesterday. Currently patient in clear liquid diet tumor markers and negative for pancreatic cancer . MRI ordered to evaluate the pancreatic lesions 3. Sepsis secondary to Acute diverticulitis with CAT scan positive for focal inflammatory process involving the right colon with pedunculated diverticuli in the right colon. Continue Zosyn. ESR CRP ordered. Tumor markers negative for primary colon carcinoma. Surgery consulted for possible ischemic bowel 4. Sepsis secondary to Acute UTI, Positive for infection continue Zosyn until urine cultures are resulted 5. Multiple liver lesions and lung lesion concerning for metastatic versus primary disorder reviewed the case with oncology. Liver and lung lesions are old. No immediate for liver biopsy at this moment. 6 bilateral lower extremity edema venous Doppler negative for DVT. 7. COPD not in exacerbation. Continue DuoNeb treatments 4 times daily as needed 8. Mild intermittent asthma, stable. 9. History of renal cell cancer status post right-sided nephrectomy. 10. Metastatic renal cell cancer to the lungs . Patient had VATS and left upper lobe biopsies suggestive of clear cell carcinoma status post chemotherapy - pazotinib till feb 2015, discontinued due to fatigue 11. 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 12. Hypertension. Continue amlodipine 10 mg at bedtime. Hold losartan 13. Hypothyroidism. Continue levothyroxine 112 g daily. 14. Benign prostatic hypertrophy. Continue Flomax 0.4 mg daily. 15. Acute kidney injury secondary to ATN with Chronic kidney disease stage III. Continue to monitor. Avoid nephrotoxic agents. Losartan on hold for now. 16. DVT prophylaxis. Lovenox. 17. GI prophylaxis and GERD. Continue pantoprazole 40 mg supper. 18 disposition patient is undergoing patient's night for stabilization 19 CODE STATUS discussed with patient patient would like to be a no code 20 constipation no improvement with Dulcolax suppository. Dulcolax 5 mg by michael daily. Fleet Enema ordered today
--- NOTE | 2020-09-03 15:30 | P.GSCN ---
History of Present Illness Consult date: 09/03/20 History of present illness: CHIEF COMPLAINT: Abdominal pain Reason for consult: Abnormal CAT scan rule out ischemia HISTORY OF PRESENT ILLNESS: This is a 89-year-old male with a known past medical history of right renal cell carcinoma diagnosed in 1993 status post right nephrectomy, metastatic renal cell cancer of the lungs status post VATS and chemotherapy, larynx cancer status post radiation therapy. Patient also multiple liver lesions and lung lesions concerning of metastatic disease versus primary disorder. Patient followed by oncology. He also has a history of double aortic aneurysm, Graves' disease with thyroidectomy. Patient admitted to the hospital with abdominal pain secondary to pancreatitis and questionable ileus. Followed by GI service. His enzymes have trended downwards and started on a clear liquid diet today. Patient denies any alcohol use. Etiology of the pancreatitis is unclear. Patient had a computed tomography scan of the abdomen and pelvis on 09/01/2020 shows abnormal loop of bowel in the mid abdomen adjacent to the inferior vena cava likely represents focal inflammatory process or ischemia. Large fluid filled diverticula of the right colon without evidence of inflammation. No free intraperitoneal air or fluid and no bowel obstruction. Multiple pulmonary and liver masses highly suspicious of metastatic disease. Oncology has ordered MRI of the pancreas. Patient is complaining of abdominal distention. He reports it has been several days since his last bowel movement. He reports that initially on presentation he did have epigastric abdominal pain this is now resolved. Yesterday he had some right-sided abdominal pain and then had an episode of left-sided pain. He reports that his pain has been intermittent. And currently now has no abdominal pain. He denies any nausea or vomiting. Abdominal ultrasound gallbladder is normal without distention wall thickening or pericholecystic fluid or gallstones. Abdominal x-ray shows nonspecific abdomen. Surgical service was consulted regards to abnormal CAT sc an findings and possible ischemia of the bowel. Medicine service has patient on antibiotics for UTI and possible diverticulitis. PAST MEDICAL HISTORY: See list. PAST SURGICAL HISTORY: See list. MEDICATIONS: See list. ALLERGIES: See list. SOCIAL HISTORY: No illicit drug use. REVIEW OF SYSTEMS: CONSTITUTIONAL: Denies fever or chills. HEENT: Denies blurred vision, vision changes, or eye pain. Denies hemoptysis CARDIOVASCULAR: Denies chest pain or pressure. RESPIRATORY: No shortness of breath. GASTROINTESTINAL: See HPI for pertinent findings HEMATOLOGIC: Denies bleeding disorders. GENITOURINARY: Denies any blood in urine or increased urinary frequency. SKIN: Denies pruitis. Denies rash. PHYSICAL EXAM: VITAL SIGNS: Reviewed GENERAL: Well-developed in no acute distress. HEENT: No sclera icterus. Extraocular movements grossly intact. Moist buccal mucosa. Head is atraumatic, normocephalic. No nasal drainage. ABDOMEN: Distended. Nontender. Old incisional scar across the abdomen that is healed NEUROLOGIC: Alert and oriented. Cranial nerves II through XII grossly intact. LABORATORY DATA: WBC is up at 26.5 he will 14.1 and platelets 214 sodium 137 creatinine 1.94 lactic is 1.2 LFTs are normal Lipase on admission was 13,857 has now trended down to 182 amylase was 1906 history to down to 282 CEA 1.2 CA-19-9 9.1 IMAGING: As stated above ASSESSMENT: 1. Abdominal distention with intermittent abdominal pain. CAT scan finding shows abnormal loop of bowel in the mid abdomen adjacent to the inferior vena cava likely represents focal inflammatory process or ischemia. And large fluid filled diverticula of the right colon with out evidence of inflammation 2. Acute pancreatitis. Enzymes trending down PLAN: -Further recommendations forthcoming per surgeon -Follow up on MRI of the pancreas -Continue clear liquid diet -Continue supportive care Physician Industrial Training Specialist note has been reviewed by physician. Signing provider agrees with the documented findings, assessment, and plan of care. Past Medical History Past Medical History: Asthma, Cancer, GERD/Reflux, Hypertension, Pneumonia, Prostate Disorder, Thyroid Disorder Additional Past Medical History / Comment(s): ASL cancer with a previous nephrectomy 1993 and subsequent development of metastatic disease, laryngeal cancer in 2013 by radiation therapy, systemic chemotherapy for bilateral metastatic pulmonary lesions related to renal cell carcinoma and this was diagnosed in 2011, chronic back pain, abdominal aortic aneurysm, chronic back pain and degenerative arthritis, compression fracture of the spine, osteoporosis, gastric ulcer with positivity towards H. pylori, hiatal hernia, Graves' disease with a previous thyroidectomy, varicose veins, migraine headache, lactose intolerance, rosacea History of Any Multi-Drug Resistant Organisms: None Reported Past Surgical History: Tonsillectomy Additional Past Surgical History / Comment(s): RIGHT KIDNEY REMOVED (1993), THYROID REMOVED (2002) WAS FOUND TO HAVE 2 OF THEM SO ONE REMOVED, LARYNGOSCOPY, NODULES REMOVED FROM LUNGS, COURTNEY CATARACTS, thyroidectomy left hemiarthroplasty for left subcapital fracture in 2016 Past Anesthesia/Blood Transfusion Reactions: Previous Problems w/ Anesthesia Additional Past Anesthesia/Blood Transfusion Reaction / Comm: STATES HE RECEIVED SUCCINYLCHOLINE, CAUSED WEAKNESS IN HIS LEGS, NEEDED A WALKER FOR SEVERAL DAYS AFTERWARDS , AND FELT WEAKNESS FOR 6 MONTHS. Smoking Status: Former smoker - Past Family History Brother(s) Family Medical History: Cancer Mother Family Medical History: Cancer Sister(s) Family Medical History: Cancer Father Family Medical History: Coronary Artery Disease (CAD) Medications and Allergies Home Medications Medication Instructions Recorded Confirmed Type Levothyroxine Sodium [Synthroid] 112 mcg PO DAILY 09/25/13 09/01/20 History Montelukast [Singulair] 10 mg PO DAILY 09/25/13 09/01/20 History Cholecalciferol (Vitamin D3) 2,000 unit PO DAILY 12/30/17 09/01/20 History [Vitamin D3] Losartan [Cozaar] 50 mg PO DAILY 12/30/17 09/01/20 History Omeprazole [PriLOSEC] 40 mg PO W/SUPPER 12/30/17 09/01/20 History Tamsulosin HCl [Flomax] 0.4 mg PO DAILY 12/30/17 09/01/20 History amLODIPine [Norvasc] 10 mg PO DAILY 12/30/17 09/01/20 History Fluticasone Propion/Salmeterol 2 puff INHALATION RT-BID 04/02/20 09/01/20 History [Wixela 500-50 Inhub] Allergies Allergy/AdvReac Type Severity Reaction Status Date / Time succinylcholine Allergy Severe Unknown Verified 09/01/20 15:03 [Succinylcholine] Iodinated Contrast Media AdvReac Unknown Verified 09/01/20 15:03 [Iodinated Contrast- Oral and IV Dye] Surgical - Exam Vital Signs Temp Pulse Resp BP Pulse Ox 98 F 85 18 124/75 95 09/01/20 13:59 09/01/20 13:59 09/01/20 13:59 09/01/20 13:59 09/01/20 13:59 Results - Labs 09/02/20 17:06 09/02/20 17:06 Abnormal Lab Results - Last 24 Hours (Table) 09/02/20 09/02/20 09/02/20 Range/Units 17:06 17:06 17:06 WBC 26.5 H (3.8-10.6) k/uL Neutrophils # 24.8 H (1.3-7.7) k/uL Lymphocytes # 0.9 L (1.0-4.8) k/uL ESR 33 H (0-15) mm/hr BUN 35 H (9-20) mg/dL Creatinine 1.94 H (0.66-1.25) mg/dL Total Bilirubin 1.5 H (0.2-1.3) mg/dL C-Reactive Protein 19.1 H (<1.0) mg/dL Albumin 3.4 L (3.5-5.0) g/dL Amylase (23-121) U/L Lipase 2294 H (23-300) U/L 09/03/20 Range/Units 06:31 WBC (3.8-10.6) k/uL Neutrophils # (1.3-7.7) k/uL Lymphocytes # (1.0-4.8) k/uL ESR (0-15) mm/hr BUN (9-20) mg/dL Creatinine (0.66-1.25) mg/dL Total Bilirubin (0.2-1.3) mg/dL C-Reactive Protein (<1.0) mg/dL Albumin (3.5-5.0) g/dL Amylase 282 H (23-121) U/L Lipase 182 H (23-300) U/L Microbiology - Last 24 Hours (Table) 09/02/20 07:10 Urine Culture - Final Urine,Voided Diabetes panel 09/02/20 09/03/20 Range/Units 17:06 06:31 Sodium 137 (137-145) mmol/L Potassium 4.9 (3.5-5.1) mmol/L Chloride 105 (98-107) mmol/L Carbon Dioxide 26 (22-30) mmol/L BUN 35 H (9-20) mg/dL Creatinine 1.94 H (0.66-1.25) mg/dL Glucose 95 (74-99) mg/dL Calcium 8.8 (8.4-10.2) mg/dL AST 26 (17-59) U/L ALT 10 (4-49) U/L Alkaline Phosphatase 80 (38-126) U/L Total Protein 6.5 (6.3-8.2) g/dL Albumin 3.4 L (3.5-5.0) g/dL Triglycerides 68.0 (0.0-149.0) mg/dL Calcium panel 09/02/20 Range/Units 17:06 Calcium 8.8 (8.4-10.2) mg/dL Albumin 3.4 L (3.5-5.0) g/dL Pituitary panel 09/02/20 Range/Units 17:06 Sodium 137 (137-145) mmol/L Potassium 4.9 (3.5-5.1) mmol/L Chloride 105 (98-107) mmol/L Carbon Dioxide 26 (22-30) mmol/L BUN 35 H (9-20) mg/dL Creatinine 1.94 H (0.66-1.25) mg/dL Glucose 95 (74-99) mg/dL Calcium 8.8 (8.4-10.2) mg/dL Adrenal panel 09/02/20 Range/Units 17:06 Sodium 137 (137-145) mmol/L Potassium 4.9 (3.5-5.1) mmol/L Chloride 105 (98-107) mmol/L Carbon Dioxide 26 (22-30) mmol/L BUN 35 H (9-20) mg/dL Creatinine 1.94 H (0.66-1.25) mg/dL Glucose 95 (74-99) mg/dL Calcium 8.8 (8.4-10.2) mg/dL Total Bilirubin 1.5 H (0.2-1.3) mg/dL AST 26 (17-59) U/L ALT 10 (4-49) U/L Alkaline Phosphatase 80 (38-126) U/L Total Protein 6.5 (6.3-8.2) g/dL Albumin 3.4 L (3.5-5.0) g/dL
[2020-09-04] MEDS: MORPHINE SULFATE 4 MG/ML SYRINGE IVP PRN ×3 (02:52→17:53)
[2020-09-04] MEDS: PIPERACILLIN-TAZOBACTAM 3.375 GM in SODIUM CHLORIDE 0.9% 100 ML IVPB SCH ×3 (04:03→20:38)
[2020-09-04] MEDS: LEVOTHYROXINE 112 MCG TAB PO SCH (05:51)
[2020-09-04] MEDS: SYMBICORT 160-4.5 MCG INHALER INHALATION SCH ×2 (07:53→20:45)
[2020-09-04] MEDS: TAMSULOSIN 0.4 MG CAP.ER.24H PO SCH (09:18)
[2020-09-04] MEDS: guaiFENesin 600 MG TABLET.ER PO SCH ×2 (09:18→20:39)
[2020-09-04] MEDS: amLODIPine 10 MG TAB PO SCH (09:18)
[2020-09-04] MEDS: PANTOPRAZOLE 40 MG TABLET PO SCH (09:18)
[2020-09-04] MEDS: MONTELUKAST 10 MG TAB PO SCH (09:18)
[2020-09-04] MEDS: ENOXAPARIN 30 MG/0.3 ML SYRINGE SQ SCH (09:18)
--- NOTE | 2020-09-04 09:24 | P.PN ---
Subjective Progress Note Date: 09/03/20 Principal diagnosis: pancreatitis In f/u today pt remains NPO, abd pain is a little less intense but, persists. Objective - Vital Signs Vital signs: Vital Signs Temp 98 F 09/03/20 05:00 Pulse 96 09/03/20 05:00 Resp 22 09/03/20 05:00 BP 119/67 09/03/20 05:00 Pulse Ox 92 L 09/03/20 05:00 Intake & Output 09/02/20 09/03/20 09/03/20 18:59 06:59 18:59 Intake Total 1210 Balance 1210 Intake: Intake, IV Titration 1200 Amount Piperacillin-Tazobactam 3 200 .375 gm In Sodium Chloride 0.9% 100 ml @ 25 mls/hr IVPB Q8H DENEEN Rx#: [id number] Sodium Chloride 0.9% 1, 1000 000 ml @ 130 mls/hr IV . Q7H42M DENEEN Rx#:[id number] Oral 10 Other: Voiding Method Urinal Toilet Toilet Urinal Urinal # Voids 4 2 # Bowel Movements 0 - Constitutional General appearance: Present: cooperative, no acute distress, obese - EENT Eyes: Present: anicteric sclerae, EOMI ENT: Present: hearing grossly normal - Respiratory Respiratory: bilateral: CTA, diminished (bases) - Cardiovascular Heart sounds: normal: S1, S2 - Peripheral edema leg Peripheral Edema: bilateral: None - Gastrointestinal General gastrointestinal: Present: soft Localized gastrointestinal: tender: epigastric periumbilical - Neurologic Neurologic: Present: CNII-XII intact - Musculoskeletal Musculoskeletal: Present: strength equal bilaterally - Psychiatric Psychiatric: Present: A&O x's 3, appropriate affect, intact judgment & insight - Labs CBC & Chem 7: 09/02/20 17:06 09/02/20 17:06 Labs: Abnormal Lab Results - Last 24 Hours (Table) 09/02/20 09/02/20 09/02/20 Range/Units 17:06 17:06 17:06 WBC 26.5 H (3.8-10.6) k/uL Neutrophils # 24.8 H (1.3-7.7) k/uL Lymphocytes # 0.9 L (1.0-4.8) k/uL ESR 33 H (0-15) mm/hr BUN 35 H (9-20) mg/dL Creatinine 1.94 H (0.66-1.25) mg/dL Total Bilirubin 1.5 H (0.2-1.3) mg/dL C-Reactive Protein 19.1 H (<1.0) mg/dL Albumin 3.4 L (3.5-5.0) g/dL Amylase (23-121) U/L Lipase 2294 H (23-300) U/L 09/03/20 Range/Units 06:31 WBC (3.8-10.6) k/uL Neutrophils # (1.3-7.7) k/uL Lymphocytes # (1.0-4.8) k/uL ESR (0-15) mm/hr BUN (9-20) mg/dL Creatinine (0.66-1.25) mg/dL Total Bilirubin (0.2-1.3) mg/dL C-Reactive Protein (<1.0) mg/dL Albumin (3.5-5.0) g/dL Amylase 282 H (23-121) U/L Lipase 182 H (23-300) U/L Microbiology - Last 24 Hours (Table) 09/02/20 07:10 Urine Culture - Preliminary Urine,Voided - Imaging and Cardiology CT scan - abdomen: report reviewed (Dr. Sharif reviewed 2020, 2018, 2016 CT scan reports) Assessment and Plan (1) Pancreatitis Narrative/Plan: NPO. Mgmt per Internal Medicine Current Visit: Yes Status: Acute Priority: High Code(s): K85.90 - ACUTE PANCREATITIS WITHOUT NECROSIS OR INFECTION, UNSP SNOMED Code(s): 18069579 (2) Liver metastasis Current Visit: Yes Status: Acute Priority: High Code(s): C78.7 - SECONDARY MALIG NEOPLASM OF LIVER AND INTRAHEPATIC BILE DUCT SNOMED Code(s): 44482045 (3) Lung metastasis Current Visit: Yes Status: Acute Priority: Medium Code(s): C78.00 - SECONDARY MALIGNANT NEOPLASM OF UNSPECIFIED LUNG SNOMED Code(s): 76395289 (4) Renal cell adenocarcinoma Current Visit: Yes Status: Chronic Priority: Medium Code(s): C64.9 - MALIGNANT NEOPLASM OF UNSP KIDNEY, EXCEPT RENAL PELVIS SNOMED Code(s): 835371476 (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 Sharif reviewed the CT scans from 2017, 2019 and recent. He discussed case with IM. [place] that the current imaging is more suggestive of acute pancreatitis and ischemic bowel vs malignant process. MRCP without contrast ordered to invest igate further Liver biopsy cancelled for now. RCC persistent in pt liver could be anticipated but, with mild changes noted from previous images, a biopsy confirming malignancy in this case, would not changer fixer. Attests: I have performed H&P, seen and examined pt, developed impression and plan of care. Discussed with dictator. Agree with dictation, documented as a scribe
[2020-09-04 11:33] LABS: Basophils % (A) 0 %; Eosinophils # (A) 0.2 k/uL (0-0.7); Eosinophils % (A) 1 %; HGB 12.1 gm/dL (13.0-17.5); Lymphocytes % (A) 4 %; MCH 30.9 pg (25.0-35.0); MCHC 31.8 g/dL (31.0-37.0); MCV 97.3 fL (80.0-100.0); Mean Platelet Volume 7.3; Monocytes # (A) 0.6 k/uL (0-1.0); Monocytes % (A) 3 %; Neutrophils # (A) 20.5 k/uL (1.3-7.7); Neutrophils % (A) 92 %; Platelet Count 191 k/uL (150-450); WBC 22.4 k/uL (3.8-10.6)
--- NOTE | 2020-09-04 12:12 | P.PN ---
Subjective Progress Note Date: 09/04/20 Principal diagnosis: Abdominal pain, nausea and vomiting The patient is seen and examined sitting up in bed. He is scheduled for MRI of the pancreas, MRCP. There is also an order for liver biopsy per primary team. Oncology is following patient closely. Today he states he no longer has abdominal pain, denies any nausea or vomiting. Still having some low back pain but getting pain medication for that. He is been on a full liquid diet, would like to advance to a pured diet. Tumor markers were all negative, triglycerides were 68. Surgical service us have also been consulted. Objective - Vital Signs Vital signs: Vital Signs Temp 97.6 F 09/04/20 05:00 Pulse 89 09/04/20 05:00 Resp 20 09/04/20 05:00 BP 101/65 09/04/20 05:00 Pulse Ox 94 L 09/04/20 05:00 Intake & Output 09/03/20 09/04/20 09/04/20 18:59 06:59 18:59 Intake Total 680 800 Balance 680 800 Intake: Intake, IV Titration 100 Amount Piperacillin-Tazobactam 3 100 .375 gm In Sodium Chloride 0.9% 100 ml @ 25 mls/hr IVPB Q8H [facility] Rx#: [id number] Oral 680 700 Other: Voiding Method Toilet Toilet Urinal Urinal # Voids 2 4 - Exam General appearance: The patient is alert, oriented, appears in no acute distress. HET: Head is normocephalic and atraumatic. Conjunctiva pink. Sclera anicteric. Neck: Supple without lymphadenopathy. Abdomen: Soft, nontender, nondistended with bowel sounds. No guarding or rigidity. Extremities: Normal skin color and turgor. No pedal edema Skin: No rashes, no jaundice Neurological: No focal deficits. Alert and oriented 3. - Labs CBC & Chem 7: 09/04/20 11:10 09/02/20 17:06 Labs: Abnormal Lab Results - Last 24 Hours (Table) 09/03/20 Range/Units 06:31 Amylase 282 H (23-121) U/L Lipase 182 H (14-60) U/L Microbiology - Last 24 Hours (Table) 09/02/20 07:10 Urine Culture - Final Urine,Voided Assessment and Plan (1) Pancreatitis Narrative/Plan: 89-year-old male presenting with abdominal pain, nausea and vomiting and found to have markedly elevated amylase and 1906 and lipase of 13,857 and currently receiving treatment for acute uncomplicated pancreatitis with no inflammation or abnormal findings of the pancreas noted. 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 Unclear etiology of pancreatitis with patient denying any alcohol use, no evidence of gallstones or biliary ductal dilation on imaging, he denies any new medications or exposures. Current Visit: Yes Status: Acute Priority: High Code(s): K85.90 - ACUTE PANCREATITIS WITHOUT NECROSIS OR INFECTION, UNSP SNOMED Code(s): 77485514 (2) Abnormal CT of the abdomen Narrative/Plan: computed tomography scan of the abdomen with an abnormal loop of bowel in the mid abdomen adjacent to the IVC likely representing focal inflammatory process or ischemia, large fluid filled diverticula in the right colon with no evidence of free air or bowel obstruction as well as multiple pulmonary and liver nodules highly suspicious for metastatic disease with no evidence of CBD dilation. Unclear significance of fluid-filled pedunculated diverticulum in the right colon. Patient currently denying any bowel movements or flatus which is likely related to ileus in the setting of pancreatitis. Last colonoscopy performed in 2013 with findings of Current Visit: Yes Status: Acute Code(s): R93.5 - ABN FINDINGS ON DX IMAGING OF ABD REGIONS, INC RETROPERITON SNOMED Code(s): 12161729628995626 (3) Epigastric pain Current Visit: Yes Status: Acute Code(s): R10.13 - EPIGASTRIC PAIN SNOMED Code(s): 65584658 (4) Liver nodule Current Visit: Yes Status: Acute Code(s): K76.89 - OTHER SPECIFIED DISEASES OF LIVER SNOMED Code(s): 818147431 (5) Lung metastasis Current Visit: Yes Status: Acute Priority: Medium Code(s): C78.00 - SECONDARY MALIGNANT NEOPLASM OF UNSPECIFIED LUNG SNOMED Code(s): 83732472 (6) Renal cell adenocarcinoma Current Visit: Yes Status: Chronic Priority: Medium Code(s): C64.9 - MALIGNANT NEOPLASM OF UNSP KIDNEY, EXCEPT RENAL PELVIS SNOMED Code(s): 247367697 Plan: Supportive care Advance to clear liquid diet Continue pain control Ambulation as tolerated Tumor markers ordered, negative Triglyceride level ordered Computed tomography scan of the abdomen and ultrasound abdomen reviewed No plans for endoscopic evaluation in the setting of pancreatitis and possible ileus, insufflation of air during procedure is not recommended due to the high risk of perforation, if further evaluation of the suspected colonic diverticulum is required imaging can be performed in the future Oncology service on consult, surgical services on consult Patient is scheduled for MRI of the pancreas Patient is scheduled for liver biopsy Thank you for allowing us to participate in the care of the patient we will continue to follow Dr. Lehman I agree with the dictator's note, documented as a scribe by Tania Jaquez.
--- NOTE | 2020-09-04 14:32 | P.PN ---
Subjective 89 years old male with past medical history of renal cell carcinoma originally diagnosed in 1993 followed by a right nephrectomy. Patient followed Dr. Warner for his care. He did have a lung nodule and since 2899 and multiple lung nodules for which patient had a PET scan in November 2011 with no significant uptake. On 2011 patient had a VAC and the left upper lobe wedge resection biopsy which revealed a metastatic clear cell carcinoma. 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 Patient had multiple imaging including a brain MRI bone scan in December 2011 which were negative for metastasis. He did have a CAT scan of the chest in 01/07/2012 with slight improvement in his lung nodules. He received oral pazotinib for 3 years which was discontinued in February 2015 due to fatigue. Patient was last admitted in March/2024 for possible COPD e xacerbation and chest wall pain. Patient comes in today with severe epigastric abdominal and distention that started 3 in the morning yesterday. Patient also documents increased cough with sputum production but denies any shortness of breath. He denies any difficulty swallowing or unintentional weight loss but does have loss of appetite. Patient denies any change in bowel habits, no diarrhea or black stools. Last colonoscopy was 2013. The sigmoid diverticulosis but no polyps or neoplasm. On evaluation in the ER patient was afebrile pulse 85 respiratory rate 18 blood pressure 120/75. He was noted to have pancreatitis. And was admitted for IV hydration and kept nothing by mouth. Labs are reviewed patient with leukocytosis of 22,000, hemoglobin 14.9 hematocrit 44 platelet 238 sodium 135 potassium 4.9 chloride 104 bicarb 23 BUN 32 creatinine 1.84 glucose of 129, mildly as of 1900 and lipase 13,000 857. UA was positive for 100 WBCs last leukocyte esterase and RBCs. 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 Influenza and COVID-19 virus was negative. gallbladder ultrasound was negative for gallstones or dilation CBD. GI consulted and oncology consulted for new lesions. CT abdomen suggested abnormal loop of bowel in the mid abdomen suggestive of focal inflammation process or ischemia. Large fluid-filled diverticular of the right colon without evidence of inflammation. No free int raperitoneal air or fluid noted and surgical absence of right kidney. Multiple pulmonary and liver masses suspected of metastatic disease. Start patient on Zosyn 3.375 every 8 hours per for UTI and diverticulitis. IR consult for possible liver biopsy 09/03 patient examined bedside. Continues to complain of abdominal distention with no bowel movement since Wednesday. Abdominal x-ray revealed yesterday had nonspecific bowelsigns of obstruction noted. Patient's vitals evaluated patient had a fever of 98 pulse 96 respiratory rate 22 blood pressure 119/67 oxygen saturation 92% on 2 L. Labs are reviewed patient's hemoglobin is 14.1 WBC was elevated at 26 platelet 214 ESR is elevated CRP is 19 lipase has improved to 182 CMP reviewed patient's sodium is 137 potassium 4.9 chloride 105 BUN 35 creatinine 1.94 chest x-ray revealed suggest basilar infiltrate concerning for mild CHF. Venous Doppler were obtained yesterday are negative for bilateral DVTs does have popliteal cyst on the left. [employer]'s notes were reviewed. GI recommends advancing to clear liquid diet. Tumor markers including AFP, CEA, CA 19/9 antigen is negative triglycerides pending. No plan for endoscopy evaluation in the setting of pancreatitis and possible ileus. Case discussed with oncology, liver lesions appears to be chronic. Liver biopsy is not indicated at this moment. Pancreatitis could be a result of pancreatic lesions from renal cell carcinoma. We'll evaluate with an MRI without contrast as juwan donis cannot receive contrast due to her current kidney functions. Continue Zosyn for possible diverticulitis. Dulcolax suppository given yesterday with no improvement of patient's constipation. Fleet enema ordered for today. Surgery consulted for possible ischemic bowel though lactic acid is normal. ProBNP is normal unlikely to have CHF at this moment. Repeat chest x-ray tomorrow we will discontinue IV fluids due to concern for volume overload 09/04: Patient evaluated at the bedside. Patient was scheduled for MRI and MRCP today, was not completed due to patient was unable to fit into the [facility]KR[facility] scanner. Labs reviewed today, WBC 22.4 hemoglobin 12.1. He has been tolerating a full liquid diet, will advance to pured diet. Vital signs have been stable he's afebrile temperatures 98.8, heart rate 99, respiratory 16, blood pressure 132/74, O2 saturation of 94% on 2 L via nasal cannula Objective - Vital Signs Vital signs: Vital Signs Temp 98.8 F 09/04/20 12:32 Pulse 99 09/04/20 12:32 Resp 16 09/04/20 12:32 BP 132/74 09/04/20 12:32 Pulse Ox 94 L 09/04/20 12:32 Intake & Output 09/03/20 09/04/20 09/04/20 18:59 06:59 18:59 Intake Total 680 800 236 Balance 680 800 236 Intake: Intake, IV Titration 100 Amount Piperacillin-Tazobactam 3 100 .375 gm In Sodium Chloride 0.9% 100 ml @ 25 mls/hr IVPB Q8H [facility] Rx#: [id number] Oral 680 700 236 Other: Voiding Method Toilet Toilet Urinal Urinal # Voids 2 4 - Exam - Constitutional General appearance: cooperative, no acute distress - EENT Eyes: anicteric sclerae, PERRLA, normal appearance ENT: hearing grossly normal - Neck Neck: no lymphadenopathy, normal ROM, no other, no rigidity, no stridor, no thyromegaly - Respiratory Respiratory: bilateral air entry bilaterally no crackles or rhonchi noted- Cardiovascular Rhythm: regular Heart sounds: normal: S1, S2 Abnormal Heart Sounds: no systolic murmur, no diastolic murmur, no rub, no S3 Gallop, no S4 Gallop, no click - Gastrointestinal General gastrointestinal: normal bowel sounds, soft abdomen slightly distended - Integumentary Integumentary: no rash - Neurologic Neurologic: No motor or sensory deficit - Musculoskeletal Musculoskeletal: gait normal, strength equal bilaterally - Psychiatric Psychiatric: A&O x's 3, appropriate affect - Labs CBC & Chem 7: 09/04/20 11:10 09/02/20 17:06 Labs: Abnormal Lab Results - Last 24 Hours (Table) 09/04/20 Range/Units 11:10 WBC 22.4 H (3.8-10.6) k/uL RBC 3.90 L (4.30-5.90) m/uL Hgb 12.1 L (13.0-17.5) gm/dL Hct 38.0 L (39.0-53.0) % Neutrophils # 20.5 H (1.3-7.7) k/uL Microbiology - Last 24 Hours (Table) 09/02/20 07:10 Urine Culture - Final Urine,Voided Assessment and Plan Plan: 1. Acute abdominal pain secondary to pancreatitis and possible ileus. Abdominal x-ray nonspecific abdomen. Tolerating clear liquid diet will advance diet as tolerated. IV fluids discontinued 2. Acute Pancreatitis unclear etiology. Ultrasound gallbladder negative for gallstones. No alcohol use. GI consulted. It is improved since yesterday. Currently patient in on a pured diet tumor markers and negative for pancreatic cancer . MRI ordered to evaluate the pancreatic lesions, unable to completely MRI due to patient could not fit in the MRI 3. Sepsis secondary to Acute diverticulitis with CAT scan positive for focal inflammatory process involving the right colon with pedunculated diverticuli in the right colon. Continue Zosyn. ESR CRP ordered. Tumor markers negative for primary colon carcinoma. Surgery consulted for possible ischemic bowel 4. Sepsis secondary to Acute UTI, Positive for infection continue Zosyn 5. Multiple liver lesions and lung lesion concerning for metastatic versus primary disorder reviewed the case with oncology. Liver and lung lesions are old. No immediate for liver biopsy at this moment. 6 bilateral lower extremity edema venous Doppler negative for DVT. 7. COPD not in exacerbation. Continue DuoNeb treatments 4 times daily as needed 8. Mild intermittent asthma, stable. 9. History of renal cell cancer status post right-sided nephrectomy. 10. Metastatic renal cell cancer to the lungs . Patient had VATS and left upper lobe biopsies suggestive of clear cell carcinoma status post chemotherapy - pazotinib till feb 2015, discontinued due to fatigue 11. 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 12. Hypertension. Continue amlodipine 10 mg at bedtime. Hold losartan 13. Hypothyroidism. Continue levothyroxine 112 g daily. 14. Benign prostatic hypertrophy. Continue Flomax 0.4 mg daily. 15. Acute kidney injury secondary to ATN with Chronic kidney disease stage III. Continue to monitor. Avoid nephrotoxic agents. Losartan on hold for now. 16. DVT prophylaxis. Lovenox. 17. GI prophylaxis and GERD. Continue pantoprazole 40 mg 18 disposition patient is undergoing patient's night for stabilization 19 CODE STATUS discussed with patient patient would like to be a no code 20 constipation no improvement with Dulcolax suppository. Dulcolax 5 mg by mouth daily. Fleet Enema The above impression and plan of care have been discussed and directed by signing physician. Keke Zhou nurse practitioner acting as scribe for signing physician.
--- NOTE | 2020-09-04 15:01 | P.PN ---
Subjective Progress Note Date: 09/04/20 CHIEF COMPLAINT: Abdominal pain HISTORY OF PRESENT ILLNESS: Surgical service following regards to patient's abdominal pain and questionable ischemic bowel. Patient denies any abdominal pain. Denies any nausea or vomiting. She had been tolerating a full liquid diet. His pancreatitis has improved. He is scheduled for an MRI of the pancreas today. He reports it's been about 4 days since his last bowel movement. He is stating that his abdomen is distended. Afebrile. Discussed case with oncology service. Patient has multiple liver lesions that appeared unchanged. They have canceled the liver biopsy. PHYSICAL EXAM: VITAL SIGNS: Reviewed. GENERAL: Well-developed in no acute distress. HEENT: No sclera icterus. Extraocular movements grossly intact. Moist buccal mucosa. Head is atraumatic, normocephalic. ABDOMEN: Soft. Distended Nontender. NEUROLOGIC: Alert and oriented. Cranial nerves II through XII grossly intact. ASSESSMENT: 1. Abdominal distention with intermittent abdominal pain. CAT scan finding shows abnormal loop of bowel in the mid abdomen adjacent to the inferior vena cava likely represents focal inflammatory process or ischemia. And large fluid filled diverticula of the right colon with out evidence of inflammation 2. Acute pancreatitis. 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 Signing provider agrees with the documented findings, assessment, and plan of care. Objective - Vital Signs Vital signs: Vital Signs Temp 97.6 F 09/04/20 05:00 Pulse 89 09/04/20 05:00 Resp 20 09/04/20 05:00 BP 101/65 09/04/20 05:00 Pulse Ox 94 L 09/04/20 05:00 Intake & Output 09/03/20 09/04/20 09/04/20 18:59 06:59 18:59 Intake Total 680 800 Balance 680 800 Intake: Intake, IV Titration 100 Amount Piperacillin-Tazobactam 3 100 .375 gm In Sodium Chloride 0.9% 100 ml @ 25 mls/hr IVPB Q8H [facility] Rx#: [id number] Oral 680 700 Other: Voiding Method Toilet Toilet Urinal Urinal # Voids 2 4 - Labs CBC & Chem 7: 09/02/20 17:06 09/02/20 17:06 Labs: Microbiology - Last 24 Hours (Table) 09/02/20 07:10 Urine Culture - Final Urine,Voided
[2020-09-04] MEDS: BENZONATATE 100 MG CAP PO SCH ×2 (15:26→22:20)
[2020-09-04] MEDS: IPRATROPIUM-ALBUTEROL 3 ML NEB INHALATION SCH ×2 (15:30→20:45)
--- NOTE | 2020-09-04 16:00 | P.PN ---
Subjective Progress Note Date: 09/04/20 Principal diagnosis: pancreatitis In f/u today pt remains NPO, abd pain is a little less intense but, persists. Objective - Vital Signs Vital signs: Vital Signs Temp 97.6 F 09/04/20 05:00 Pulse 89 09/04/20 05:00 Resp 20 09/04/20 05:00 BP 101/65 09/04/20 05:00 Pulse Ox 94 L 09/04/20 05:00 Intake & Output 09/03/20 09/04/20 09/04/20 18:59 06:59 18:59 Intake Total 680 800 Balance 680 800 Intake: Intake, IV Titration 100 Amount Piperacillin-Tazobactam 3 100 .375 gm In Sodium Chloride 0.9% 100 ml @ 25 mls/hr IVPB Q8H [facility] Rx#: [id number] Oral 680 700 Other: Voiding Method Toilet Toilet Urinal Urinal # Voids 2 4 - Constitutional General appearance: Present: cooperative, no acute distress, obese - EENT Eyes: Present: anicteric sclerae, EOMI ENT: Present: hearing grossly normal - Respiratory Respiratory: bilateral: CTA - Cardiovascular Heart sounds: normal: S1, S2 - Peripheral edema leg Peripheral Edema: bilateral: None - Gastrointestinal General gastrointestinal: Present: decreased bowel sounds, distended, tenderness Localized gastrointestinal: tender: epigastric periumbilical (improved) - Neurologic Neurologic: Present: CNII-XII intact - Musculoskeletal Musculoskeletal: Present: strength equal bilaterally - Psychiatric Psychiatric: Present: A&O x's 3, appropriate affect, intact judgment & insight - Labs CBC & Chem 7: 09/04/20 11:10 09/02/20 17:06 Labs: Microbiology - Last 24 Hours (Table) 09/02/20 07:10 Urine Culture - Final Urine,Voided Assessment and Plan (1) Pancreatitis Narrative/Plan: NPO. Mgmt per Internal Medicine. MRI unable to be performed, cannot fit into machine. Need to plan for MRI outpt Current Visit: Yes Status: Acute Priority: High Code(s): K85.90 - ACUTE PANCREATITIS WITHOUT NECROSIS OR INFECTION, UNSP SNOMED Code(s): 76394073 (2) Liver metastasis Current Visit: Yes Status: Chronic Priority: Low Code(s): C78.7 - SECONDARY MALIG NEOPLASM OF LIVER AND INTRAHEPATIC BILE DUCT SNOMED Code(s): 48684052 (3) Lung metastasis Current Visit: Yes Status: Acute Priority: Medium Code(s): C78.00 - SECONDARY MALIGNANT NEOPLASM OF UNSPECIFIED LUNG SNOMED Code(s): 89558771 (4) Renal cell adenocarcinoma Current Visit: Yes Status: Chronic Priority: Medium Code(s): C64.9 - MALIGNANT NEOPLASM OF UNSP KIDNEY, EXCEPT RENAL PELVIS SNOMED Code(s): 020798969 (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 MRCP without contrast ordered to investigate further-unable to be done because of body habitus. Will plan for op en MRI outpt. Liver biopsy cancelled for now. RCC persistent in pt liver could be anticipated but, with mild changes noted from previous images, a biopsy confirming malignancy in this case, would not record changer. Attests: I have performed H&P, seen and examined pt, developed impression and plan of care. Discussed with dictator. Agree with dictation, documented as a scribe
[2020-09-04] MEDS: ONDANSETRON 4 MG/2 ML VIAL IVP PRN (17:43)
[2020-09-04] MEDS: SCOPOLAMINE 1.5MG/72HR PATCH TRANSDERM SCH (17:44)
[2020-09-04] MEDS: FLUTICASONE 50MCG/SPRAY NASAL 16GM EA NOSTRIL SCH (22:20)
[2020-09-05] MEDS: PIPERACILLIN-TAZOBACTAM 3.375 GM in SODIUM CHLORIDE 0.9% 100 ML IVPB SCH ×2 (03:16→12:02)
[2020-09-05] MEDS: LEVOTHYROXINE 112 MCG TAB PO SCH (05:52)
[2020-09-05 06:52] LABS: Basophils % (A) 0 %; Eosinophils # (A) 0.1 k/uL (0-0.7); Eosinophils % (A) 1 %; HCT 34.8 % (39.0-53.0); HGB 11.5 gm/dL (13.0-17.5); Lymphocytes # (A) 0.8 k/uL (1.0-4.8); Lymphocytes % (A) 5 %; MCH 31.9 pg (25.0-35.0); MCV 96.9 fL (80.0-100.0); Mean Platelet Volume 7.4; Monocytes # (A) 0.7 k/uL (0-1.0); Monocytes % (A) 4 %; Neutrophils # (A) 16.6 k/uL (1.3-7.7); Neutrophils % (A) 90 %; Platelet Count 204 k/uL (150-450); RBC 3.59 m/uL (4.30-5.90); RDW 12.7 % (11.5-15.5); WBC 18.4 k/uL (3.8-10.6)
[2020-09-05] MEDS: SYMBICORT 160-4.5 MCG INHALER INHALATION SCH ×2 (08:06→19:58)
[2020-09-05] MEDS: IPRATROPIUM-ALBUTEROL 3 ML NEB INHALATION SCH ×4 (08:06→19:58)
[2020-09-05] MEDS: ENOXAPARIN 30 MG/0.3 ML SYRINGE SQ SCH (08:47)
[2020-09-05] MEDS: amLODIPine 10 MG TAB PO SCH (08:48)
[2020-09-05] MEDS: TAMSULOSIN 0.4 MG CAP.ER.24H PO SCH (08:48)
[2020-09-05] MEDS: BENZONATATE 100 MG CAP PO SCH ×3 (08:48→23:20)
[2020-09-05] MEDS: PANTOPRAZOLE 40 MG TABLET PO SCH (08:48)
[2020-09-05] MEDS: guaiFENesin 600 MG TABLET.ER PO SCH ×2 (08:48→20:00)
[2020-09-05] MEDS: FLUTICASONE 50MCG/SPRAY NASAL 16GM EA NOSTRIL SCH ×2 (08:52→20:00)
[2020-09-05] MEDS ORDERED: FUROSEMIDE 10 MG/ML 4 ML VIAL IV STA (11:28)
[2020-09-05] MEDS: MONTELUKAST 10 MG TAB PO SCH (12:02)
--- NOTE | 2020-09-05 12:27 | XR ---
EXAMINATION TYPE: XR chest 1V DATE OF EXAM: 09/05/2020 HISTORY: Shortness of breath. COMPARISON: 09/02/20 TECHNIQUE: Single view of the chest is submitted. FINDINGS: Demonstrated are scattered senescent parenchymal change. Multiple scattered pulmonary nodules are redemonstrated. Patchy basilar densities persist although im proving in the interval. The heart is stable. Hilar and mediastinal structures are within normal limits. Degenerative changes are seen of the dorsal spine. IMPRESSION: 1. Multiple scattered pulmonary nodules are redemonstrated. Patchy basilar densities persist althoug h improving in the interval.
[2020-09-05 12:28] LABS: ALT 12 U/L (4-49); AST 34 U/L (17-59); African American GFR (CKD) 19 (>60 ml/min/1.73 sqM); Albumin 2.8 g/dL (3.5-5.0); Albumin/Globulin Ratio 0.9; Alkaline Phosphatase 70 U/L (38-126); Anion Gap 10 mmol/L; Blood Urea Nitrogen 48 mg/dL (9-20); Calcium 8.3 mg/dL (8.4-10.2); Carbon Dioxide 22 mmol/L (22-30); Chloride 103 mmol/L (98-107); Glucose 99 mg/dL (74-99); Non-African American GFR(CKD) 16 (>60 ml/min/1.73 sqM); Potassium 4.6 mmol/L (3.5-5.1); Sodium 135 mmol/L (137-145); Total Bilirubin 1.7 mg/dL (0.2-1.3); Total Protein 5.8 g/dL (6.3-8.2)
[2020-09-05] MEDS ORDERED: bisacodyL 5 MG TABLET.DR PO PRN (13:11)
--- NOTE | 2020-09-05 13:23 | P.PN ---
Subjective 89 years old male with past medical history of renal cell carcinoma originally diagnosed in 1993 followed by a right nephrectomy. Patient followed Dr. Warner for his care. He did have a lung nodule and since 2899 and multiple lung nodules for which patient had a PET scan in November 2011 with no significant uptake. On 2011 patient had a VAC and the left upper lobe wedge resection biopsy which revealed a metastatic clear cell carcinoma. 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 Patient had multiple imaging including a brain MRI bone scan in December 2011 which were negative for metastasis. He did have a CAT scan of the chest in 01/07/2012 with slight improvement in his lung nodules. He received oral pazotinib for 3 years which was discontinued in February 2015 due to fatigue. Patient was last admitted in March/2024 for possible COPD e xacerbation and chest wall pain. Patient comes in today with severe epigastric abdominal and distention that started 3 in the morning yesterday. Patient also documents increased cough with sputum production but denies any shortness of breath. He denies any difficulty swallowing or unintentional weight loss but does have loss of appetite. Patient denies any change in bowel habits, no diarrhea or black stools. Last colonoscopy was 2013. The sigmoid diverticulosis but no polyps or neoplasm. On evaluation in the ER patient was afebrile pulse 85 respiratory rate 18 blood pressure 120/75. He was noted to have pancreatitis. And was admitted for IV hydration and kept nothing by mouth. Labs are reviewed patient with leukocytosis of 22,000, hemoglobin 14.9 hematocrit 44 platelet 238 sodium 135 potassium 4.9 chloride 104 bicarb 23 BUN 32 creatinine 1.84 glucose of 129, mildly as of 1900 and lipase 13,000 857. UA was positive for 100 WBCs last leukocyte esterase and RBCs. 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 Influenza and COVID-19 virus was negative. gallbladder ultrasound was negative for gallstones or dilation CBD. GI consulted and oncology consulted for new lesions. CT abdomen suggested abnormal loop of bowel in the mid abdomen suggestive of focal inflammation process or ischemia. Large fluid-filled diverticular of the right colon without evidence of inflammation. No free int raperitoneal air or fluid noted and surgical absence of right kidney. Multiple pulmonary and liver masses suspected of metastatic disease. Start patient on Zosyn 3.375 every 8 hours per for UTI and diverticulitis. IR consult for possible liver biopsy 09/03 patient examined bedside. Continues to complain of abdominal distention with no bowel movement since Wednesday. Abdominal x-ray revealed yesterday had nonspecific bowelsigns of obstruction noted. Patient's vitals evaluated patient had a fever of 98 pulse 96 respiratory rate 22 blood pressure 119/67 oxygen saturation 92% on 2 L. Labs are reviewed patient's hemoglobin is 14.1 WBC was elevated at 26 platelet 214 ESR is elevated CRP is 19 lipase has improved to 182 CMP reviewed patient's sodium is 137 potassium 4.9 chloride 105 BUN 35 creatinine 1.94 chest x-ray revealed suggest basilar infiltrate concerning for mild CHF. Venous Doppler were obtained yesterday are negative for bilateral DVTs does have popliteal cyst on the left. Skill Training Program Coordinator's notes were reviewed. GI recommends advancing to clear liquid diet. Tumor markers including AFP, CEA, CA 19/9 antigen is negative triglycerides pending. No plan for endoscopy evaluation in the setting of pancreatitis and possible ileus. Case discussed with oncology, liver lesions appears to be chronic. Liver biopsy is not indicated at this moment. Pancreatitis could be a result of pancreatic lesions from renal cell carcinoma. We'll evaluate with an MRI without contrast as juwan donis cannot receive contrast due to her current kidney functions. Continue Zosyn for possible diverticulitis. Dulcolax suppository given yesterday with no improvement of patient's constipation. Fleet enema ordered for today. Surgery consulted for possible ischemic bowel though lactic acid is normal. ProBNP is normal unlikely to have CHF at this moment. Repeat chest x-ray tomorrow we will discontinue IV fluids due to concern for volume overload 09/04: Patient evaluated at the bedside. Patient was scheduled for MRI and MRCP today, was not completed due to patient was unable to fit into the [facility] scanner. Labs reviewed today, WBC 22.4 hemoglobin 12.1. He has been tolerating a full liquid diet, will advance to pured diet. Vital signs have been stable he's afebrile temperatures 98.8, heart rate 99, respiratory 16, blood pressure 132/74, O2 saturation of 94% on 2 L via nasal cannula 09/05: Patient examined at the bedside. He continues to have complaints of cough with congestion. Chest x-ray shows multiple scattered pulmonary nodules, patchy basilar densities that are improving. Patient was given a dose of IV Lasix. Patient's abdominal distention and pain is much better today. Still has complaints of difficulty swallowing and unable to swallow pills, consult placed to speech therapy, recommended modified barium swallow, which has been ordered. Pressure has been running a little on the lower side, amlodipine was decreased to 5 mg daily. Laboratory evaluation WBC 18.4, hemoglobin 11.5, sodium 135, BUN 40, creatinine 3.2. Kidney function is worse, Zosyn has been discontinued and changed to Levaquin and Flagyl, nephrology consult placed Objective - Vital Signs Vital signs: Vital Signs Temp 99.4 F 09/05/20 04:49 Pulse 85 09/05/20 11:20 Resp 16 09/05/20 04:49 BP 100/60 09/05/20 04:49 Pulse Ox 91 L 09/05/20 04:49 Intake & Output 09/04/20 09/05/20 09/05/20 18:59 06:59 18:59 Intake Total 336 340 Balance 336 340 Weight 109 kg Intake: Intake, IV Titration 100 100 Amount Piperacillin-Tazobactam 3 100 100 .375 gm In Sodium Chloride 0.9% 100 ml @ 25 mls/hr IVPB Q8H [facility] Rx#: [id number] Oral 236 240 Other: # Voids 300 - Exam - Constitutional General appearance: cooperative, no acute distress - EENT Eyes: anicteric sclerae, PERRLA, normal appearance ENT: hearing grossly normal - Neck Neck: no lymphadenopathy, normal ROM, no other, no rigidity, no stridor, no thyromegaly - Respiratory Respiratory: bilateral air entry bilaterally no crackles or rhonchi noted- Cardiovascular Rhythm: regular Heart sounds: normal: S1, S2 Abnormal Heart Sounds: no systolic murmur, no diastolic murmur, no rub, no S3 Gallop, no S4 Gallop, no click - Gastrointestinal General gastrointestinal: normal bowel sounds, soft abdomen slightly distended, improve from yesterday - Integumentary Integumentary: no rash - Neurologic Neurologic: No motor or sensory deficit - Musculoskeletal Musculoskeletal: gait normal, strength equal bilaterally - Psychiatric Psychiatric: A&O x's 3, appropriate affect - Labs CBC & Chem 7: 09/05/20 06:23 09/05/20 11:42 Labs: Abnormal Lab Results - Last 24 Hours (Table) 09/05/20 09/05/20 Range/Units 06:23 11:42 WBC 18.4 H (3.8-10.6) k/uL RBC 3.59 L (4.30-5.90) m/uL Hgb 11.5 L (13.0-17.5) gm/dL Hct 34.8 L (39.0-53.0) % Neutrophils # 16.6 H (1.3-7.7) k/uL Lymphocytes # 0.8 L (1.0-4.8) k/uL Sodium 135 L (137-145) mmol/L BUN 48 H (9-20) mg/dL Creatinine 3.20 H (0.66-1.25) mg/dL Calcium 8.3 L (8.4-10.2) mg/dL Total Bilirubin 1.7 H (0.2-1.3) mg/dL Total Protein 5.8 L (6.3-8.2) g/dL Albumin 2.8 L (3.5-5.0) g/dL Assessment and Plan Plan: 1. Acute abdominal pain secondary to pancreatitis and possible ileus. Abdominal x-ray nonspecific abdomen. Tolerating clear liquid diet will advance diet as tolerated. IV fluids discontinued 2. Acute Pancreatitis unclear etiology. Ultrasound gallbladder negative for gallstones. No alcohol use. GI consulted. It is improved since yesterday. Currently patient in on a pured diet tumor markers and negative for pancreatic cancer . MRI ordered to evaluate the pancreatic lesions, unable to completely MRI due to patient could not fit in the MRI 3. Sepsis secondary to Acute diverticulitis with CAT scan positive for focal inflammatory process involving the right colon with pedunculated diverticuli in the right colon. Continue Flagyl and Levaquin. Tumor markers negative for prima ry colon carcinoma. Surgery consulted for possible ischemic bowel 4. Sepsis secondary to Acute UTI, Positive for infection continue levaquin 5. Multiple liver lesions and lung lesion concerning for metastatic versus primary disorder reviewed the case with oncology. Liver and lung lesions are old. No immediate for liver biopsy at this moment. 6 bilateral lower extremity edema venous Doppler negative for DVT. 7. COPD not in exacerbation. Continue DuoNeb treatments 4 times daily as ne eded 8. Mild intermittent asthma, stable. 9. History of renal cell cancer status post right-sided nephrectomy. 10. Metastatic renal cell cancer to the lungs . Patient had VATS and left upper lobe biopsies suggestive of clear cell carcinoma status post chemotherapy - pazotinib till feb 2015, discontinued due to fatigue 11. 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 12. Hypertension. Continue amlodipine 10 mg at bedtime. Hold losartan 13. Hypothyroidism. Continue levothyroxine 112 g daily. 14. Benign prostatic hypertrophy. Continue Flomax 0.4 mg daily. 15. Acute kidney injury secondary to ATN with Chronic kidney disease stage III. Continue to monitor. Avoid nephrotoxic agents. Losartan on hold for now. Discontinue Zosyn. Nephrology on consult 16. DVT prophylaxis. Lovenox. 17. GI prophylaxis and GERD. Continue pantoprazole 40 mg 18 disposition patient is undergoing patient's night for stabilization 19 CODE STATUS discussed with patient patient would like to be a no code 20 constipation no improvement with Dulcolax suppository. Dulcolax 5 mg by mouth daily. Fleet Enema The above impression and plan of care have been discussed and directed by signing physician. Keke Zhou nurse practitioner acting as scribe for signing physician.
[2020-09-05] MEDS ORDERED: LEVOFLOXACIN 500MG-D5W PMX 500 MG in DEXTROSE/WATER 1 100ML.BAG IVPB SCH (13:30)
--- NOTE | 2020-09-05 13:46 | P.PN ---
Subjective Progress Note Date: 09/05/20 CHIEF COMPLAINT: Abdominal pain HISTORY OF PRESENT ILLNESS: Surgical service following regards to patient's abdominal pain and questionable ischemic bowel. Patient is complaining of some right-sided abdominal pain today. He is passing gas. Still has not had a bowel movement since Wednesday. He is having issues with difficulty swallowing and is scheduled for a modified barium swallow, ordered by GI service. WBC is down to 18.4 MRI of pancreas not completed due to patient's body habitus. Patient seen and examined with Dr. hill PHYSICAL EXAM: VITAL SIGNS: Reviewed. GENERAL: Well-developed in no acute distress. HEENT: No sclera icterus. Extraocular movements grossly intact. Moist buccal mucosa. Head is atraumatic, normocephalic. ABDOMEN: Soft. Distended tender with palpation of the right side of the abdomen NEUROLOGIC: Alert and oriented. Cranial nerves II through XII grossly intact. ASSESSMENT: 1. Abdominal distention with intermittent abdominal pain. Likely related to colitis. Reviewed CAT scan findings with Dr. Hill who felt that the inflammation noted on CAT scan was likely due to colitis and not ischemia of the bowel. 2. Constipation 3. Acute pancreatitis resolved PLAN: -No surgical intervention planned -Soapsud enemas ordered for constipation -Continue supportive care Physician Nuclear Plant Construction Worker note has been reviewed by physician. Signing provider agrees with the documented findings, assessment, and plan of care. Objective - Vital Signs Vital signs: Vital Signs Temp 99.4 F 09/05/20 04:49 Pulse 85 09/05/20 11:20 Resp 16 09/05/20 04:49 BP 100/60 09/05/20 04:49 Pulse Ox 91 L 09/05/20 04:49 Intake & Output 09/04/20 09/05/20 09/05/20 18:59 06:59 18:59 Intake Total 336 340 Balance 336 340 Weight 109 kg Intake: Intake, IV Titration 100 100 Amount Piperacillin-Tazobactam 3 100 100 .375 gm In Sodium Chloride 0.9% 100 ml @ 25 mls/hr IVPB Q8H [facility] Rx#: [id number] Oral 236 240 Other: # Voids 300 - Labs CBC & Chem 7: 09/05/20 06:23 09/05/20 11:42 Labs: Abnormal Lab Results - Last 24 Hours (Table) 09/05/20 09/05/20 Range/Units 06:23 11:42 WBC 18.4 H (3.8-10.6) k/uL RBC 3.59 L (4.30-5.90) m/uL Hgb 11.5 L (13.0-17.5) gm/dL Hct 34.8 L (39.0-53.0) % Neutrophils # 16.6 H (1.3-7.7) k/uL Lymphocytes # 0.8 L (1.0-4.8) k/uL Sodium 135 L (137-145) mmol/L BUN 48 H (9-20) mg/dL Creatinine 3.20 H (0.66-1.25) mg/dL Calcium 8.3 L (8.4-10.2) mg/dL Total Bilirubin 1.7 H (0.2-1.3) mg/dL Total Protein 5.8 L (6.3-8.2) g/dL Albumin 2.8 L (3.5-5.0) g/dL
--- NOTE | 2020-09-05 14:02 | P.PN ---
Subjective Progress Note Date: 09/05/20 Principal diagnosis: Abdominal pain, nausea and vomiting Patient seen and examined sitting up in bed. Speech therapy was ordered as patient has been complaining of some difficulty with swallowing and this had a significant cough with white secretions. Modified barium swallow ordered. Patient is nothing by mouth at this time. He denies any abdominal pain, nausea, or vomiting. He states that sometimes when he is eating and feels like it gets stuck and sometimes he has to drink water take down but then will start coughing and may regurgitate or vomit. Objective - Vital Signs Vital signs: Vital Signs Temp 99.4 F 09/05/20 04:49 Pulse 90 09/05/20 08:15 Resp 16 09/05/20 04:49 BP 100/60 09/05/20 04:49 Pulse Ox 91 L 09/05/20 04:49 Intake & Output 09/04/20 09/05/20 09/05/20 18:59 06:59 18:59 Intake Total 336 340 Balance 336 340 Weight 109 kg Intake: Intake, IV Titration 100 100 Amount Piperacillin-Tazobactam 3 100 100 .375 gm In Sodium Chloride 0.9% 100 ml @ 25 mls/hr IVPB Q8H [facility] Rx#: [id number] Oral 236 240 Other: # Voids 300 - Exam General appearance: The patient is alert, oriented, appears in no acute distress. HET: Head is normocephalic and atraumatic. Conjunctiva pink. Sclera anicteric. Neck: Supple without lymphadenopathy. Abdomen: Soft, nontender, nondistended with bowel sounds. No guarding or rigidity. Extremities: Normal skin color and turgor. No pedal edema Skin: No rashes, no jaundice Neurological: No focal deficits. Alert and oriented 3. - Labs CBC & Chem 7: 09/05/20 06:23 09/05/20 11:42 Labs: Abnormal Lab Results - Last 24 Hours (Table) 09/04/20 09/05/20 Range/Units 11:10 06:23 WBC 22.4 H 18.4 H (3.8-10.6) k/uL RBC 3.90 L 3.59 L (4.30-5.90) m/uL Hgb 12.1 L 11.5 L (13.0-17.5) gm/dL Hct 38.0 L 34.8 L (39.0-53.0) % Neutrophils # 20.5 H 16.6 H (1.3-7.7) k/uL Lymphocytes # 0.8 L (1.0-4.8) k/uL Assessment and Plan (1) Pancreatitis Narrative/Plan: 89-year-old male presenting with abdominal pain, nausea and vomiting and found to have markedly elevated amylase and 1906 and lipase of 13,857 and currently receiving treatment for acute uncomplicated pancreatitis with no inflammation or abnormal findings of the pancreas noted. 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 Unclear etiology of pancreatitis with patient denying any alcohol use, no evidence of gallstones or biliary ductal dilation on imaging, he denies any new medications or exposures. Current Visit: Yes Status: Acute Priority: High Code(s): K85.90 - ACUTE PANCREATITIS WITHOUT NECROSIS OR INFECTION, UNSP SNOMED Code(s): 94367063 (2) Abnormal CT of the abdomen Narrative/Plan: computed tomography scan of the abdomen with an abnormal loop of bowel in the mid abdomen adjacent to the IVC likely representing focal inflammatory process or ischemia, large fluid filled diverticula in the right colon with no evidence of free air or bowel obstruction as well as multiple pulmonary and liver nodules highly suspicious for metastatic disease with no evidence of CBD dilation. Unclear significance of fluid-filled pedunculated diverticulum in the right colon. Patient currently denying any bowel movements or flatus which is likely related to ileus in the setting of pancreatitis. Last colonoscopy performed in 2013 with findings of Current Visit: Yes Status: Acute Code(s): R93.5 - ABN FINDINGS ON DX IMAGING OF ABD REGIONS, INC RETROPERITON SNOMED Code(s): 43284192668357001 (3) Epigastric pain Current Visit: Yes Status: Acute Code(s): R10.13 - EPIGASTRIC PAIN SNOMED Code(s): 10874424 (4) Liver nodule Current Visit: Yes Status: Acute Code(s): K76.89 - OTHER SPECIFIED DISEASES OF LIVER SNOMED Code(s): 355065184 (5) Lung metastasis Current Visit: Yes Status: Acute Priority: Medium Code(s): C78.00 - SECONDARY MALIGNANT NEOPLASM OF UNSPECIFIED LUNG SNOMED Code(s): 90568414 (6) Renal cell adenocarcinoma Current Visit: Yes Status: Chronic Priority: Medium Code(s): C64.9 - MALIGNANT NEOPLASM OF UNSP KIDNEY, EXCEPT RENAL PELVIS SNOMED Code(s): 586863270 (7) Dysphagia Narrative/Plan: Speech therapy during swallowing evaluation and modified barium swallow study. Current Visit: Yes Status: Acute Code(s): R13.10 - DYSPHAGIA, UNSPECIFIED SNOMED Code(s): 11455195 Plan: Supportive care Modified barium swallow ordered, study pending Diet per recommendations from speech therapy Continue pain control Ambulation as tolerated Tumor markers ordered, negative Triglyceride level ordered Computed tomography scan of the abdomen and ultrasound abdomen reviewed No plans for endoscopic evaluation at the time Oncology service on consult, surgical services on consult MRI of pancreas unable to be performed due to patient size, can consider outpatient open MRI Continue dulcolax daily Enema per surgical recommendations Thank you for allowing us to participate in the care of the patient we will be on standby Dr. Lehman I agree with the dictator's note, documented as a scribe by Tania Jaquez.
--- NOTE | 2020-09-05 14:47 | P.PN ---
Subjective Progress Note Date: 09/05/20 Principal diagnosis: pancreatitis In f/u today pt is waiting for swallow evaluation 2/2 dyshpagia and coughing when eating and drinking. He was unable to have MRCP due to body habitus. He feels ok today, his whole abd is no longer tender just the right side. He has no other c/o. Objective - Vital Signs Vital signs: Vital Signs Temp 98.0 F 09/05/20 13:06 Pulse 95 09/05/20 13:06 Resp 20 09/05/20 13:06 BP 115/66 09/05/20 13:06 Pulse Ox 91 L 09/05/20 13:06 Intake & Output 09/04/20 09/05/20 09/05/20 18:59 06:59 18:59 Intake Total 336 340 Balance 336 340 Weight 109 kg Intake: Intake, IV Titration 100 100 Amount Piperacillin-Tazobactam 3 100 100 .375 gm In Sodium Chloride 0.9% 100 ml @ 25 mls/hr IVPB Q8H [facility] Rx#: [id number] Oral 236 240 Other: # Voids 300 - Constitutional General appearance: Present: cooperative, no acute distress, obese - EENT Eyes: Present: anicteric sclerae, EOMI ENT: Present: hearing grossly normal, normal oropharynx - Respiratory Respiratory: bilateral: CTA - Cardiovascular Rhythm: regular Heart sounds: normal: S1, S2 Abnormal Heart Sounds: Absent: systolic murmur, diastolic murmur, rub, S3 Gallop, S4 Gallop, click, other - Peripheral edema leg Peripheral Edema: bilateral: Trace - Gastrointestinal General gastrointestinal: Present: decreased bowel sounds, distended, soft Localized gastrointestinal: tender: RUQ, RLQ - Neurologic Neurologic: Present: CNII-XII intact - Musculoskeletal Musculoskeletal: Present: generalized weakness - Psychiatric Psychiatric: Present: A&O x's 3, appropriate affect, intact judgment & insight - Labs CBC & Chem 7: 09/05/20 06:23 09/05/20 11:42 Labs: Abnormal Lab Results - Last 24 Hours (Table) 09/05/20 09/05/20 Range/Units 06:23 11:42 WBC 18.4 H (3.8-10.6) k/uL RBC 3.59 L (4.30-5.90) m/uL Hgb 11.5 L (13.0-17.5) gm/dL Hct 34.8 L (39.0-53.0) % Neutrophils # 16.6 H (1.3-7.7) k/uL Lymphocytes # 0.8 L (1.0-4.8) k/uL Sodium 135 L (137-145) mmol/L BUN 48 H (9-20) mg/dL Creatinine 3.20 H (0.66-1.25) mg/dL Calcium 8.3 L (8.4-10.2) mg/dL Total Bilirubin 1.7 H (0.2-1.3) mg/dL Total Protein 5.8 L (6.3-8.2) g/dL Albumin 2.8 L (3.5-5.0) g/dL Assessment and Plan (1) Pancreatitis Narrative/Plan: Clear liquids started, pancreatic enzymes significantly improved. Mgmt per Internal Medicine. MRI unable to be performed, cannot fit into machine. Plan for MRI outpt Current Visit: Yes Status: Acute Priority: High Code(s): K85.90 - ACUTE PANCREATITIS WITHOUT NECROSIS OR INFECTION, UNSP SNOMED Code(s): 43545253 (2) Liver metastasis Current Visit: Yes Status: Chronic Priority: Low Code(s): C78.7 - SECONDARY MALIG NEOPLASM OF LIVER AND INTRAHEPATIC BILE DUCT SNOMED Code(s): 66339311 (3) Lung metastasis Current Visit: Yes Status: Acute Priority: Medium Code(s): C78.00 - SECONDARY MALIGNANT NEOPLASM OF UNSPECIFIED LUNG SNOMED Code(s): 00756293 (4) Renal cell adenocarcinoma Current Visit: Yes Status: Chronic Priority: Medium Code(s): C64.9 - MALIGNANT NEOPLASM OF UNSP KIDNEY, EXCEPT RENAL PELVIS SNOMED Code(s): 717713005 (5) Carcinoma in situ of larynx Narrative/Plan: [place] sacr tissue from XRT may be contributing to pt dysphagia. Speech Therapist recs reviewed, pt doing nectar thick liquids, no straws. GI has been consulted Current Visit: No Status: Chronic Priority: Low Code(s): D02.0 - CARCINOMA IN SITU OF LARYNX SNOMED Code(s): 29638994 Plan: [place] that the current imaging is more suggestive of acute pancreatitis and ischemic bowel vs malignant process. MRCP unable to do 2/2 body habitus, this needs to be done outpt. Liver biopsy cancelled for now. RCC persistent in pt liver could be anticipated but, with mild changes noted from previous images, a biopsy confirming malignancy in this case, would not climate change risk assessor. No BM for 5 days. Did talk with Surgical PA. Meds ordered, possible enema Renal function declining, Nephrology consulted Called pt daughter and summarized hospital stay Time with Patient: Greater than 30
[2020-09-05 15:13] LABS: African American GFR (CKD) 21.4 (60.0-200.0); Albumin/Globulin Ratio 1.36 (1.60-3.17); BUN/Creat Ratio 15.86 Ratio (12.00-20.00); Calcium 7.6 mg/dL (8.7-10.3); Globulin 2.2 g/dL (1.6-3.3); Non-African American GFR(CKD) 18.5 (60.0-200.0); Potassium 4.6 mmol/L (3.5-5.5); Total Bilirubin 1.4 mg/dL (0.2-1.2); Total Protein 5.2 g/dL (6.2-8.2)
[2020-09-05] MEDS: bisacodyL 5 MG TABLET.DR PO SCH (15:58)
[2020-09-05] MEDS: metroNIDAZOLE-NS PMX 500 MG in SALINE 1 100ML.BAG IVPB SCH ×2 (17:03→23:20)
[2020-09-06 05:29] LABS: Basophils % (A) 0 %; Eosinophils # (A) 0.1 k/uL (0-0.7); Eosinophils % (A) 0 %; HGB 11.3 gm/dL (13.0-17.5); Lymphocytes # (A) 0.8 k/uL (1.0-4.8); Lymphocytes % (A) 4 %; MCH 31.7 pg (25.0-35.0); MCHC 33.2 g/dL (31.0-37.0); MCV 95.6 fL (80.0-100.0); Mean Platelet Volume 7.2; Monocytes # (A) 0.7 k/uL (0-1.0); Monocytes % (A) 4 %; Neutrophils # (A) 16.4 k/uL (1.3-7.7); Neutrophils % (A) 90 %; Platelet Count 204 k/uL (150-450); RBC 3.56 m/uL (4.30-5.90); RDW 12.6 % (11.5-15.5); WBC 18.1 k/uL (3.8-10.6)
[2020-09-06] MEDS: LEVOTHYROXINE 112 MCG TAB PO SCH (06:00)
[2020-09-06] MEDS: SYMBICORT 160-4.5 MCG INHALER INHALATION SCH ×2 (08:04→20:18)
[2020-09-06] MEDS: IPRATROPIUM-ALBUTEROL 3 ML NEB INHALATION SCH ×4 (08:04→20:18)
[2020-09-06] MEDS: metroNIDAZOLE-NS PMX 500 MG in SALINE 1 100ML.BAG IVPB SCH ×3 (08:36→23:59)
[2020-09-06] MEDS: MONTELUKAST 10 MG TAB PO SCH (08:37)
[2020-09-06] MEDS: guaiFENesin 600 MG TABLET.ER PO SCH ×2 (08:37→23:08)
[2020-09-06] MEDS: ENOXAPARIN 30 MG/0.3 ML SYRINGE SQ SCH (08:37)
[2020-09-06] MEDS: BENZONATATE 100 MG CAP PO SCH ×3 (08:37→23:08)
[2020-09-06] MEDS: FLUTICASONE 50MCG/SPRAY NASAL 16GM EA NOSTRIL SCH ×2 (08:37→23:10)
[2020-09-06] MEDS: PANTOPRAZOLE 40 MG TABLET PO SCH (08:38)
[2020-09-06] MEDS: TAMSULOSIN 0.4 MG CAP.ER.24H PO SCH (08:38)
[2020-09-06] MEDS ORDERED: amLODIPine 5 MG TAB PO SCH (09:00)
[2020-09-06] MEDS: MORPHINE SULFATE 4 MG/ML SYRINGE IVP PRN (09:11)
[2020-09-06] MEDS ORDERED: MORPHINE SULFATE 2 MG/ML SYRINGE IVP PRN (09:33)
--- NOTE | 2020-09-06 09:40 | FL ---
EXAMINATION TYPE: FL barium swallow w video DATE OF EXAM: 09/05/2020 MODIFIED SWALLOW / DEGLUTITION STUDY CLINICAL HISTORY: Dysphagia. TECHNIQUE: Deglutition study is performed utilizing thin liquid barium, honey and nectar thick liqui d barium, barium thick applesauce, and barium coated cracker. COMPARISON: None. FINDINGS: There was penetration and aspiration with thin barium. Transient penetration with nectar th ick substance. Vallecular residuals were noted with solids. 1.44 minutes of fluoroscopy. No images ruano bmitted. IMPRESSION: See above
--- NOTE | 2020-09-06 12:50 | P.PN ---
Subjective Progress Note Date: 09/06/20 CHIEF COMPLAINT: Abdominal pain HISTORY OF PRESENT ILLNESS: Surgical service following regards to patient's abdominal pain and questionable ischemic bowel. Patient sitting up at bedside chair. He denies any abdominal pain at this time. Denies any nausea or vomiting. He is passing gas. I still had a bowel movement. The soapsuds enemas that were ordered yesterday had not been given per nursing staff. They will be administered this morning. Patient had an MBS and speech pathology did report silent aspiration and diet was adjusted currently on dysphagia chopped. Afebrile. WBC 18.1 Patient seen and examined with Dr. hill PHYSICAL EXAM: VITAL SIGNS: Reviewed. GENERAL: Well-developed in no acute distress. HEENT: No sclera icterus. Extraocular movements grossly intact. Moist buccal mucosa. Head is atraumatic, normocephalic. ABDOMEN: Soft. Distended nontender NEUROLOGIC: Alert and oriented. Cranial nerves II through XII grossly intact. ASSESSMENT: 1. Abdominal distention with intermittent abdominal pain. Likely related to colitis. Reviewed CAT scan findings with Dr. Hill who felt that the inflammation noted on CAT scan was likely due to colitis and not ischemia of the bowel. 2. Constipation 3. Acute pancreatitis resolved PLAN: -No surgical intervention planned -Soapsud enemas ordered for constipation. Unfortunately, they were not given yesterday. Discussed with nursing staff and enemas will be given today. -Continue supportive care Physician Office Manager Executive Assistant note has been reviewed by physician. Signing provider agrees with the documented findings, assessment, and plan of care. Objective - Vital Signs Vital signs: Vital Signs Temp 97.3 F L 09/06/20 11:31 Pulse 101 H 09/06/20 11:31 Resp 22 09/06/20 11:31 BP 98/60 09/06/20 11:31 Pulse Ox 90 L 09/06/20 11:31 Intake & Output 09/05/20 09/06/20 09/06/20 18:59 06:59 18:59 Intake Total 200 440 100 Output Total 300 Balance 200 140 100 Weight 107.5 kg 107.5 kg Intake: Intake, IV Titration 200 100 100 Amount Levofloxacin 500Mg-D5w 100 Pmx 500 mg In Dextrose/ Water 1 100ml.bag @ 100 mls/hr IVPB Q24H [facility] Rx#: [id number] metroNIDAZOLE-NS PMX 500 100 100 100 mg In Saline 1 100ml.bag @ 100 mls/hr IVPB Q8HR [facility] Rx#:[id number] Oral 340 Output: Urine 300 Other: Voiding Method Toilet Urinal # Voids 1 2 - Labs CBC & Chem 7: 09/06/20 04:56 09/05/20 11:42 Labs: Abnormal Lab Results - Last 24 Hours (Table) 09/05/20 09/06/20 09/06/20 Range/Units 06:23 04:56 04:56 WBC 18.1 H (3.8-10.6) k/uL RBC 3.56 L (4.30-5.90) m/uL Hgb 11.3 L (13.0-17.5) gm/dL Hct 34.0 L (39.0-53.0) % Neutrophils # 16.4 H (1.3-7.7) k/uL Lymphocytes # 0.8 L (1.0-4.8) k/uL Carbon Dioxide 19.0 L (21.6-31.8) mmol/L Anion Gap 13.00 H (4.00-12.00) mmol/L BUN 46.0 H (9.0-27.0) mg/dL Creatinine 2.9 H (0.6-1.5) mg/dL Est GFR (CKD-EPI)AfAm 21.4 L (60.0-200.0) Est GFR (CKD-EPI)NonAf 18.5 L (60.0-200.0) Calcium 7.6 L (8.7-10.3) mg/dL Total Bilirubin 1.4 H (0.2-1.2) mg/dL C-Reactive Protein 24.4 H (<1.0) mg/dL Total Protein 5.2 L (6.2-8.2) g/dL Albumin 3.00 L (3.80-4.90) g/dL Albumin/Globulin Ratio 1.36 L (1.60-3.17) g/dL
--- NOTE | 2020-09-06 13:01 | XR ---
EXAMINATION TYPE: XR abdomen 1V DATE OF EXAM: 09/06/2020 COMPARISON: NONE HISTORY: Pain TECHNIQUE: Single supine KUB image of the abdomen is obtained FINDINGS: Small bowel demonstrates no evidence for dilatation or air fluid levels. Gas and fecal material is seen in non-distended colon. There is retained contrast within the right h emicolon. No convincing evidence for pneumoperitoneum. No unusual calcifications. The lung bases are clear. The osseous structures are intact. IMPRESSION: 1. Overall nonobstructive bowel gas pattern.
--- NOTE | 2020-09-06 13:03 | P.NPCON ---
History of Present Illness - Reason for Consult acute renal failure, chronic renal failure - History of Present Illness Reason for consultation: Acute kidney injury on chronic kidney disease History of present illness: Patient is a 89-year-old male seen in renal consultation for acute kidney injury on chronic kidney disease. Patient has chronic any disease stage IIIB with baseline creatinine in the range of 1.5-1.8. Patient has a solitary left kidney. He underwent right-sided nephrectomy due to renal cell cancer in 1993. Patient presented to the hospital with abdominal discomfort and vomiting. 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 Oncology is following. There was concern for pancreatitis but MRCP could not be done this admission. Liver biopsies also on hold at this time. He has been voiding. Denies hematuria or dysuria. Oral intake is just fair. Blood pressure this morning was 98/60. He was on losartan outpatient which is currently held. No history of diabetes. Denies family history of renal disease. He is currently on IV antibiotics for diverticulitis. GI and surgical team following. He did receive a dose of IV Lasix yesterday. Currently on 4 L nasal cannula. Vital signs are stable. General: The patient appeared well nourished and normally developed. HEENT: Head exam is unremarkable. Neck is without jugular venous distension. LUNGS: Breath sounds decreased. HEART: Rate and Rhythm are regular. ABDOMEN: Soft, no distention. EXTREMITITES: No edema. 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 pylori, hiatal hernia, Graves' disease with a previous thyroidectomy, varicose veins, migraine headache, lactose intolerance, rosacea History of Any Multi-Drug Resistant Organisms: None Reported Past Surgical History: Tonsillectomy Additional Past Surgical History / Comment(s): RIGHT KIDNEY REMOVED (1993), THYROID REMOVED (2002) WAS FOUND TO HAVE 2 OF THEM SO ONE REMOVED, LARYNGOSCOPY, NODULES REMOVED FROM LUNGS, COURTNEY CATARACTS, thyroidectomy left hemiarthroplasty for left subcapital fracture in 2016 Past Anesthesia/Blood Transfusion Reactions: Previous Problems w/ Anesthesia Additional Past Anesthesia/Blood Transfusion Reaction / Comment(s): STATES HE RECEIVED SUCCINYLCHOLINE, CAUSED WEAKNESS IN HIS LEGS, NEEDED A WALKER FOR SEVERAL DAYS AFTERWARDS , AND FELT WEAKNESS FOR 6 MONTHS. Smoking Status: Former smoker - Past Family History Brother(s) Family Medical History: Cancer Mother Family Medical History: Cancer Sister(s) Family Medical History: Cancer Father Family Medical History: Coronary Artery Disease (CAD) Medications and Allergies Home Medications Medication Instructions Recorded Confirmed Type Levothyroxine Sodium [Synthroid] 112 mcg PO DAILY 09/25/13 09/01/20 History Montelukast [Singulair] 10 mg PO DAILY 09/25/13 09/01/20 History Cholecalciferol (Vitamin D3) 2,000 unit PO DAILY 12/30/17 09/01/20 History [Vitamin D3] Losartan [Cozaar] 50 mg PO DAILY 12/30/17 09/01/20 History Omeprazole [PriLOSEC] 40 mg PO W/SUPPER 12/30/17 09/01/20 History Tamsulosin HCl [Flomax] 0.4 mg PO DAILY 12/30/17 09/01/20 History amLODIPine [Norvasc] 10 mg PO DAILY 12/30/17 09/01/20 History Fluticasone Propion/Salmeterol 2 puff INHALATION RT-BID 04/02/20 09/01/20 History [Wixela 500-50 Inhub] Allergies Allergy/AdvReac Type Severity Reaction Status Date / Time succinylcholine Allergy Severe Unknown Verified 09/01/20 15:03 [Succinylcholine] Iodinated Contrast Media AdvReac Unknown Verified 09/01/20 15:03 [Iodinated Contrast- Oral and IV Dye] Physical Exam Vitals: Vital Signs Temp Pulse Pulse Resp BP BP Pulse Ox 09/06/20 11:31 97.3 F L 94 101 H 22 98/60 90 L 09/06/20 11:16 92 09/06/20 08:16 100 09/06/20 08:04 98 09/06/20 05:00 98.3 F 93 22 97/61 90 L 09/05/20 20:13 94 09/05/20 20:00 97.4 F L 99 20 104/63 90 L 09/05/20 19:59 94 09/05/20 15:37 89 09/05/20 15:26 88 09/05/20 13:06 98.0 F 95 20 115/66 91 L Intake and Output 09/05/20 09/06/20 09/06/20 22:59 06:59 14:59 Intake Total 300 340 100 Output Total 100 200 Balance 200 140 100 Intake: Intake, IV Titration 200 100 100 Amount Levofloxacin 500Mg-D5w 100 Pmx 500 mg In Dextrose/ Water 1 100ml.bag @ 100 mls/hr IVPB Q24H [facility] Rx#: [id number] metroNIDAZOLE-NS PMX 500 100 100 100 mg In Saline 1 100ml.bag @ 100 mls/hr IVPB Q8HR [facility] Rx#:[id number] Oral 100 240 Output: Urine 100 200 Other: Voiding Method Toilet Urinal # Voids 1 2 Weight 107.5 kg 107.5 kg Results - Lab Results Most recent lab results Calcium 8.3 mg/dL (8.4-10.2) L 09/05/20 11:42 Magnesium 1.9 mg/dL (1.6-2.3) 09/02/20 17:06 09/06/20 04:56 09/05/20 11:42 Assessment and Plan Plan: Assessment: 1. Acute kidney injury secondary to ATN secondary to hypotension, infection and diuresis. Creatinine 3.2 today. 2. Chronic kidney disease stage IIIB with baseline creatinine in the range of 1.5-1.8 secondary to solitary left kidney. 3. Status post right nephrectomy secondary to renal cell cancer in 1993. 4. Sepsis secondary to colitis maintained on antibiotics. 5. Acute pancreatitis. 6. Lung and liver metastasis. 7. Metabolic acidosis secondary to acute kidney injury. Better. Plan: Stop amlodipine. Hold off on IV fluids and diuretics. Encourage oral intake. Check chest x-ray. Check renal ultrasound. Check bladder scan to rule out urinary retention. Repeat electrolytes in the morning. Thank you for the consultation. I will continue to follow the patient with you during his hospital stay.
[2020-09-06] MEDS: traMADol 50 MG TAB PO SCH ×3 (13:22→23:09)
[2020-09-06] MEDS ORDERED: MAGNESIUM CITRATE 296 ML BOTTLE PO ONE (14:35)
--- NOTE | 2020-09-06 14:37 | US ---
EXAMINATION TYPE: US kidneys/renal and bladder DATE OF EXAM: 09/06/2020 COMPARISON: NONE CLINICAL HISTORY: beth. EXAM MEASUREMENTS: Right Kidney: Surgically absent Left Kidney: 13.0 x 6.0 x 4.9 cm Patient of large body habitus, technically difficult limited study. Right Kidney: Surgically absent Left Kidney: multiple cysts largest measuring 2.1 x 1.8 x 1.8cm, lobular irregular contour, measures large Bladder: wnl There is no evidence for hydronephrosis at this point in time. No nephrolithiasis is seen. No solid masses are identified. The urinary bladder is anechoic. Bilateral ureteral jets are seen. IMPRESSION: Multiple left-sided renal cysts. Right kidney is surgically absent.
--- NOTE | 2020-09-06 14:55 | P.PN ---
Subjective 89 years old male with past medical history of renal cell carcinoma originally diagnosed in 1993 followed by a right nephrectomy. Patient followed Dr. Warner for his care. He did have a lung nodule and since 2899 and multiple lung nodules for which patient had a PET scan in November 2011 with no significant uptake. On 2011 patient had a VAC and the left upper lobe wedge resection biopsy which revealed a metastatic clear cell carcinoma. 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 Patient had multiple imaging including a brain MRI bone scan in December 2011 which were negative for metastasis. He did have a CAT scan of the chest in 01/07/2012 with slight improvement in his lung nodules. He received oral pazotinib for 3 years which was discontinued in February 2015 due to fatigue. Patient was last admitted in March/2024 for possible COPD e xacerbation and chest wall pain. Patient comes in today with severe epigastric abdominal and distention that started 3 in the morning yesterday. Patient also documents increased cough with sputum production but denies any shortness of breath. He denies any difficulty swallowing or unintentional weight loss but does have loss of appetite. Patient denies any change in bowel habits, no diarrhea or black stools. Last colonoscopy was 2013. The sigmoid diverticulosis but no polyps or neoplasm. On evaluation in the ER patient was afebrile pulse 85 respiratory rate 18 blood pressure 120/75. He was noted to have pancreatitis. And was admitted for IV hydration and kept nothing by mouth. Labs are reviewed patient with leukocytosis of 22,000, hemoglobin 14.9 hematocrit 44 platelet 238 sodium 135 potassium 4.9 chloride 104 bicarb 23 BUN 32 creatinine 1.84 glucose of 129, mildly as of 1900 and lipase 13,000 857. UA was positive for 100 WBCs last leukocyte esterase and RBCs. 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 Influenza and COVID-19 virus was negative. gallbladder ultrasound was negative for gallstones or dilation CBD. GI consulted and oncology consulted for new lesions. CT abdomen suggested abnormal loop of bowel in the mid abdomen suggestive of focal inflammation process or ischemia. Large fluid-filled diverticular of the right colon without evidence of inflammation. No free int raperitoneal air or fluid noted and surgical absence of right kidney. Multiple pulmonary and liver masses suspected of metastatic disease. Start patient on Zosyn 3.375 every 8 hours per for UTI and diverticulitis. IR consult for possible liver biopsy 09/03 patient examined bedside. Continues to complain of abdominal distention with no bowel movement since Wednesday. Abdominal x-ray revealed yesterday had nonspecific bowelsigns of obstruction noted. Patient's vitals evaluated patient had a fever of 98 pulse 96 respiratory rate 22 blood pressure 119/67 oxygen saturation 92% on 2 L. Labs are reviewed patient's hemoglobin is 14.1 WBC was elevated at 26 platelet 214 ESR is elevated CRP is 19 lipase has improved to 182 CMP reviewed patient's sodium is 137 potassium 4.9 chloride 105 BUN 35 creatinine 1.94 chest x-ray revealed suggest basilar infiltrate concerning for mild CHF. Venous Doppler were obtained yesterday are negative for bilateral DVTs does have popliteal cyst on the left. [employer]'s notes were reviewed. GI recommends advancing to clear liquid diet. Tumor markers including AFP, CEA, CA 19/9 antigen is negative triglycerides pending. No plan for endoscopy evaluation in the setting of pancreatitis and possible ileus. Case discussed with oncology, liver lesions appears to be chronic. Liver biopsy is not indicated at this moment. Pancreatitis could be a result of pancreatic lesions from renal cell carcinoma. We'll evaluate with an MRI without contrast as juwan donis cannot receive contrast due to her current kidney functions. Continue Zosyn for possible diverticulitis. Dulcolax suppository given yesterday with no improvement of patient's constipation. Fleet enema ordered for today. Surgery consulted for possible ischemic bowel though lactic acid is normal. ProBNP is normal unlikely to have CHF at this moment. Repeat chest x-ray tomorrow we will discontinue IV fluids due to concern for volume overload 09/04: Patient evaluated at the bedside. Patient was scheduled for MRI and MRCP today, was not completed due to patient was unable to fit into the VIKRAM scanner. Labs reviewed today, WBC 22.4 hemoglobin 12.1. He has been tolerating a full liquid diet, will advance to pured diet. Vital signs have been stable he's afebrile temperatures 98.8, heart rate 99, respiratory 16, blood pressure 132/74, O2 saturation of 94% on 2 L via nasal cannula 09/05: Patient examined at the bedside. He continues to have complaints of cough with congestion. Chest x-ray shows multiple scattered pulmonary nodules, patchy basilar densities that are improving. Patient was given a dose of IV Lasix. Patient's abdominal distention and pain is much better today. Still has complaints of difficulty swallowing and unable to swallow pills, consult placed to speech therapy, recommended modified barium swallow, which has been ordered. Pressure has been running a little on the lower side, amlodipine was decreased to 5 mg daily. Laboratory evaluation WBC 18.4, hemoglobin 11.5, sodium 135, BUN 40, creatinine 3.2. Kidney function is worse, Zosyn has been discontinued and changed to Levaquin and Flagyl, nephrology consult placed 09/06: Patient evaluated today, has complaints of bilateral lower extremity pain, morphine changed to 2 mg IV push along with tramadol as needed. He also had upper extremity swelling around the site of the IV, IV was discontinued most likely secondary to infiltration, no signs of cellulitis. Patient has not had a bowel movement in several days, soapsud enema ordered. Kidney function has worsened from 2.9 yesterday to 3.2, BUN 48, sodium 135, potassium 4.6, WBC 18, hemoglobin 11.3. Nephrology on consult, IV diuretics on hold as well as amlodipine, renal ultrasound and bladder scans ordered. Kidney ultrasound showed multiple left-sided renal cysts, right kidney is surgically absent. Abdominal x-ray showed overall nonobstructive bowel gas pattern. Modified barium swallow showed there was penetration and aspiration with thin barium. Transient penetration with nectar thick substances. Vallecular residuals were noted with solids Objective - Vital Signs Vital signs: Vital Signs Temp 97.3 F L 09/06/20 11:31 Pulse 101 H 09/06/20 11:31 Resp 22 09/06/20 11:31 BP 98/60 09/06/20 11:31 Pulse Ox 90 L 09/06/20 11:31 Intake & Output 09/05/20 09/06/20 09/06/20 18:59 06:59 18:59 Intake Total 200 440 100 Output Total 300 Balance 200 140 100 Weight 107.5 kg 107.5 kg Intake: Intake, IV Titration 200 100 100 Amount Levofloxacin 500Mg-D5w 100 Pmx 500 mg In Dextrose/ Water 1 100ml.bag @ 100 mls/hr IVPB Q24H [facility] Rx#: [id number] metroNIDAZOLE-NS PMX 500 100 100 100 mg In Saline 1 100ml.bag @ 100 mls/hr IVPB Q8HR [facility] Rx#:[id number] Oral 340 Output: Urine 300 Other: Voiding Method Toilet Urinal # Voids 1 2 - Exam - Constitutional General appearance: cooperative, no acute distress - EENT Eyes: anicteric sclerae, PERRLA, normal appearance ENT: hearing grossly normal - Neck Neck: no lymphadenopathy, normal ROM, no other, no rigidity, no stridor, no thyromegaly - Respiratory Respiratory: bilateral air entry bilaterally no crackles or rhonchi noted- Cardiovascular Rhythm: regular Heart sounds: normal: S1, S2 Abnormal Heart Sounds: no systolic murmur, no diastolic murmur, no rub, no S3 Gallop, no S4 Gallop, no click - Gastrointestinal General gastrointestinal: normal bowel sounds, soft abdomen - Integumentary Integumentary: no rash - Neurologic Neurologic: No motor or sensory deficit - Musculoskeletal Musculoskeletal: gait normal, strength equal bilaterally - Psychiatric Psychiatric: A&O x's 3, appropriate affect - Labs CBC & Chem 7: 09/06/20 04:56 09/05/20 11:42 Labs: Abnormal Lab Results - Last 24 Hours (Table) 09/05/20 09/06/20 09/06/20 Range/Units 06:23 04:56 04:56 WBC 18.1 H (3.8-10.6) k/uL RBC 3.56 L (4.30-5.90) m/uL Hgb 11.3 L (13.0-17.5) gm/dL Hct 34.0 L (39.0-53.0) % Neutrophils # 16.4 H (1.3-7.7) k/uL Lymphocytes # 0.8 L (1.0-4.8) k/uL Carbon Dioxide 19.0 L (21.6-31.8) mmol/L Anion Gap 13.00 H (4.00-12.00) mmol/L BUN 46.0 H (9.0-27.0) mg/dL Creatinine 2.9 H (0.6-1.5) mg/dL Est GFR (CKD-EPI)AfAm 21.4 L (60.0-200.0) Est GFR (CKD-EPI)NonAf 18.5 L (60.0-200.0) Calcium 7.6 L (8.7-10.3) mg/dL Total Bilirubin 1.4 H (0.2-1.2) mg/dL C-Reactive Protein 24.4 H (<1.0) mg/dL Total Protein 5.2 L (6.2-8.2) g/dL Albumin 3.00 L (3.80-4.90) g/dL Albumin/Globulin Ratio 1.36 L (1.60-3.17) g/dL Assessment and Plan Plan: 1. Acute abdominal pain secondary to pancreatitis and possible ileus. Abdominal x-ray nonspecific abdomen. Tolerating clear liquid diet will advance diet as tolerated. IV fluids discontinued 2. Acute Pancreatitis unclear etiology. Ultrasound gallbladder negative for gallstones. No alcohol use. GI consulted. It is improved since yesterday. Currently patient in on a pured diet tumor markers and negative for pancreatic cancer . MRI ordered to evaluate the pancreatic lesions, unable to completely MRI due to patient could not fit in the MRI 3. Sepsis secondary to Acute diverticulitis with CAT scan positive for focal inflammatory process involving the right colon with pedunculated diverticuli in the right colon. Continue Flagyl and Levaquin. Tumor markers negative for primary colon carcinoma. Surgery consulted for possible ischemic bowel 4. Sepsis secondary to Acute UTI, Positive for infection continue levaquin 5. Multiple liver lesions and lung lesion concerning for metastatic versus primary disorder reviewed the case with oncology. Liver and lung lesions are old. No immediate for liver biopsy at this moment. 6 bilateral lower extremity edema venous Doppler negative for DVT. 7. COPD not in exacerbation. Continue DuoNeb treatments 4 times daily as needed 8. Mild intermittent asthma, stable. 9. History of renal cell cancer status post right-sided nephrectomy. 10. Metastatic renal cell cancer to the lungs . Patient had VATS and left upper lobe biopsies suggestive of clear cell carcinoma status post chemotherapy - pazotinib till feb 2015, discontinued due to fatigue 11. 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 12. Hypertension. Continue amlodipine 10 mg at bedtime. Hold losartan 13. Hypothyroidism. Continue levothyroxine 112 g daily. 14. Benign prostatic hypertrophy. Continue Flomax 0.4 mg daily. 15. Acute kidney injury secondary to ATN with Chronic kidney disease stage III. Continue to monitor. Avoid nephrotoxic agents. Losartan on hold for now. Discontinue Zosyn. Nephrology on consult 16. DVT prophylaxis. Lovenox. 17. GI prophylaxis and GERD. Continue pantoprazole 40 mg 18 disposition patient is undergoing patient's night for stabilization 19 CODE STATUS discussed with patient patient would like to be a no code 20 constipation no improvement with Dulcolax suppository. Dulcolax 5 mg by mouth daily. soapsuds enema 21 dysphasia. Modified barium swallow showed penetration and aspiration, recommended nectar thick liquids The above impression and plan of care have been discussed and directed by signing physician. Keke Zhou nurse practitioner acting as scribe for signing physician.
[2020-09-06] MEDS ORDERED: LEVOFLOXACIN 250MG-D5W PMX 250 MG in DEXTROSE/WATER 1 50ML.BAG IVPB SCH (15:00)
[2020-09-06] MEDS: MELATONIN 5 MG TABLET PO SCH (23:08)
[2020-09-07] MEDS: LEVOTHYROXINE 112 MCG TAB PO SCH (05:52)
[2020-09-07 06:34] LABS: HCT 34.4 % (39.0-53.0); HGB 11.1 gm/dL (13.0-17.5); MCH 31.1 pg (25.0-35.0); MCHC 32.1 g/dL (31.0-37.0); MCV 96.8 fL (80.0-100.0); Mean Platelet Volume 7.3; Platelet Count 251 k/uL (150-450); RBC 3.55 m/uL (4.30-5.90); RDW 12.9 % (11.5-15.5); WBC 20.4 k/uL (3.8-10.6)
--- NOTE | 2020-09-07 07:44 | XR ---
EXAMINATION TYPE: XR chest 1V DATE OF EXAM: 09/07/2020 COMPARISON: 09/05/2020 HISTORY: Shortness of breath TECHNIQUE: Single frontal view of the chest is obtained. FINDINGS: Bilateral pulmonary nodules noted in the perihilar lower lobe and thorax or sizable pleura l effusion. Postoperative change. Heart size normal. Atherosclerotic change aorta. IMPRESSION: Bilateral pulmonary nodules stable with persistent basilar and perihilar infiltrates. Un derlying interstitial pneumonitis not excluded.
[2020-09-07] MEDS: IPRATROPIUM-ALBUTEROL 3 ML NEB INHALATION SCH ×4 (07:50→19:09)
[2020-09-07] MEDS: SYMBICORT 160-4.5 MCG INHALER INHALATION SCH ×2 (07:52→19:09)
[2020-09-07] MEDS: TAMSULOSIN 0.4 MG CAP.ER.24H PO SCH (08:39)
[2020-09-07] MEDS: bisacodyL 5 MG TABLET.DR PO SCH (08:39)
[2020-09-07] MEDS: BENZONATATE 100 MG CAP PO SCH ×3 (08:40→21:39)
[2020-09-07] MEDS: traMADol 50 MG TAB PO SCH ×4 (08:40→21:39)
[2020-09-07] MEDS: PANTOPRAZOLE 40 MG TABLET PO SCH (08:40)
[2020-09-07] MEDS: polyethylene glycoL 3350 17 GM POWD.PACK PO SCH (08:40)
[2020-09-07] MEDS: MONTELUKAST 10 MG TAB PO SCH (08:40)
[2020-09-07] MEDS: metroNIDAZOLE-NS PMX 500 MG in SALINE 1 100ML.BAG IVPB SCH ×2 (08:40→15:44)
[2020-09-07] MEDS: ENOXAPARIN 30 MG/0.3 ML SYRINGE SQ SCH (08:40)
[2020-09-07] MEDS: guaiFENesin 600 MG TABLET.ER PO SCH ×2 (08:40→21:39)
[2020-09-07] MEDS: FLUTICASONE 50MCG/SPRAY NASAL 16GM EA NOSTRIL SCH ×2 (08:47→21:40)
[2020-09-07] MEDS ORDERED: PIPERACILLIN-TAZOBACTAM 3.375 GM in SODIUM CHLORIDE 0.9% 100 ML IVPB SCH (09:00)
--- NOTE | 2020-09-07 09:00 | P.PN ---
Subjective Progress Note Date: 09/07/20 Principal diagnosis: Colitis Patient seems be doing better. Denies abdominal pain. He has had a few small bowel movements with the enemas. White blood cell count remains elevated. Denies nausea vomiting. Objective - Vital Signs Vital signs: Vital Signs Temp 98.2 F 09/07/20 04:18 Pulse 85 09/07/20 08:03 Resp 18 09/07/20 04:18 BP 97/60 09/07/20 04:18 Pulse Ox 92 L 09/07/20 04:18 Intake & Output 09/06/20 09/07/20 09/07/20 18:59 06:59 18:59 Intake Total 100 400 Balance 100 400 Weight 107.5 kg 107 kg Intake: Intake, IV Titration 100 100 Amount metroNIDAZOLE-NS PMX 500 100 100 mg In Saline 1 100ml.bag @ 100 mls/hr IVPB Q8HR [facility] Rx#:[id number] Oral 300 Other: Voiding Method Toilet Bedside Commode Urinal Urinal # Voids 2 2 - Exam Abdomen: Soft, nontender, nondistended - Labs CBC & Chem 7: 09/07/20 05:48 09/05/20 11:42 Labs: Abnormal Lab Results - Last 24 Hours (Table) 09/06/20 09/07/20 Range/Units 04:56 05:48 WBC 20.4 H (3.8-10.6) k/uL RBC 3.55 L (4.30-5.90) m/uL Hgb 11.1 L (13.0-17.5) gm/dL Hct 34.4 L (39.0-53.0) % C-Reactive Protein 24.4 H (<1.0) mg/dL Assessment and Plan (1) Colitis Narrative/Plan: Continue diet as ordered. Ambulate. Continue stool softeners. We'll follow. Current Visit: Yes Status: Acute Code(s): K52.9 - NONINFECTIVE GASTROENTERITIS AND COLITIS, UNSPECIFIED SNOMED Code(s): 12349682
[2020-09-07 10:03] LABS: African American GFR (CKD) 17.1 (60.0-200.0); Albumin 3.2 g/dL (3.80-4.90); Albumin/Globulin Ratio 1.33 (1.60-3.17); Anion Gap 10.4 mmol/L (4.00-12.00); BUN/Creat Ratio 16.86 Ratio (12.00-20.00); Calcium 8.3 mg/dL (8.7-10.3); Carbon Dioxide 21.6 mmol/L (21.6-31.8); Globulin 2.4 g/dL (1.6-3.3); Non-African American GFR(CKD) 14.7 (60.0-200.0); Potassium 4.2 mmol/L (3.5-5.5); Total Bilirubin 0.9 mg/dL (0.3-1.2); Total Protein 5.6 g/dL (6.2-8.2)
--- NOTE | 2020-09-07 11:03 | P.PN ---
Subjective 89 years old male with past medical history of renal cell carcinoma originally diagnosed in 1993 followed by a right nephrectomy. Patient followed Dr. Warner for his care. He did have a lung nodule and since 2899 and multiple lung nodules for which patient had a PET scan in November 2011 with no significant uptake. On 2011 patient had a VAC and the left upper lobe wedge resection biopsy which revealed a metastatic clear cell carcinoma. 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 Patient had multiple imaging including a brain MRI bone scan in December 2011 which were negative for metastasis. He did have a CAT scan of the chest in 01/07/2012 with slight improvement in his lung nodules. He received oral pazotinib for 3 years which was discontinued in February 2015 due to fatigue. Patient was last admitted in March/2024 for possible COPD e xacerbation and chest wall pain. Patient comes in today with severe epigastric abdominal and distention that started 3 in the morning yesterday. Patient also documents increased cough with sputum production but denies any shortness of breath. He denies any difficulty swallowing or unintentional weight loss but does have loss of appetite. Patient denies any change in bowel habits, no diarrhea or black stools. Last colonoscopy was 2013. The sigmoid diverticulosis but no polyps or neoplasm. On evaluation in the ER patient was afebrile pulse 85 respiratory rate 18 blood pressure 120/75. He was noted to have pancreatitis. And was admitted for IV hydration and kept nothing by mouth. Labs are reviewed patient with leukocytosis of 22,000, hemoglobin 14.9 hematocrit 44 platelet 238 sodium 135 potassium 4.9 chloride 104 bicarb 23 BUN 32 creatinine 1.84 glucose of 129, mildly as of 1900 and lipase 13,000 857. UA was positive for 100 WBCs last leukocyte esterase and RBCs. 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 Influenza and COVID-19 virus was negative. gallbladder ultrasound was negative for gallstones or dilation CBD. GI consulted and oncology consulted for new lesions. CT abdomen suggested abnormal loop of bowel in the mid abdomen suggestive of focal inflammation process or ischemia. Large fluid-filled diverticular of the right colon without evidence of inflammation. No free int raperitoneal air or fluid noted and surgical absence of right kidney. Multiple pulmonary and liver masses suspected of metastatic disease. Start patient on Zosyn 3.375 every 8 hours per for UTI and diverticulitis. IR consult for possible liver biopsy 09/03 patient examined bedside. Continues to complain of abdominal distention with no bowel movement since Wednesday. Abdominal x-ray revealed yesterday had nonspecific bowelsigns of obstruction noted. Patient's vitals evaluated patient had a fever of 98 pulse 96 respiratory rate 22 blood pressure 119/67 oxygen saturation 92% on 2 L. Labs are reviewed patient's hemoglobin is 14.1 WBC was elevated at 26 platelet 214 ESR is elevated CRP is 19 lipase has improved to 182 CMP reviewed patient's sodium is 137 potassium 4.9 chloride 105 BUN 35 creatinine 1.94 chest x-ray revealed suggest basilar infiltrate concerning for mild CHF. Venous Doppler were obtained yesterday are negative for bilateral DVTs does have popliteal cyst on the left. Plate Grinder's notes were reviewed. GI recommends advancing to clear liquid diet. Tumor markers including AFP, CEA, CA 19/9 antigen is negative triglycerides pending. No plan for endoscopy evaluation in the setting of pancreatitis and possible ileus. Case discussed with oncology, liver lesions appears to be chronic. Liver biopsy is not indicated at this moment. Pancreatitis could be a result of pancreatic lesions from renal cell carcinoma. We'll evaluate with an MRI without contrast as juwan donis cannot receive contrast due to her current kidney functions. Continue Zosyn for possible diverticulitis. Dulcolax suppository given yesterday with no improvement of patient's constipation. Fleet enema ordered for today. Surgery consulted for possible ischemic bowel though lactic acid is normal. ProBNP is normal unlikely to have CHF at this moment. Repeat chest x-ray tomorrow we will discontinue IV fluids due to concern for volume overload 09/04: Patient evaluated at the bedside. Patient was scheduled for MRI and MRCP today, was not completed due to patient was unable to fit into the [facility]KR[facility] scanner. Labs reviewed today, WBC 22.4 hemoglobin 12.1. He has been tolerating a full liquid diet, will advance to pured diet. Vital signs have been stable he's afebrile temperatures 98.8, heart rate 99, respiratory 16, blood pressure 132/74, O2 saturation of 94% on 2 L via nasal cannula 09/05: Patient examined at the bedside. He continues to have complaints of cough with congestion. Chest x-ray shows multiple scattered pulmonary nodules, patchy basilar densities that are improving. Patient was given a dose of IV Lasix. Patient's abdominal distention and pain is much better today. Still has complaints of difficulty swallowing and unable to swallow pills, consult placed to speech therapy, recommended modified barium swallow, which has been ordered. Pressure has been running a little on the lower side, amlodipine was decreased to 5 mg daily. Laboratory evaluation WBC 18.4, hemoglobin 11.5, sodium 135, BUN 40, creatinine 3.2. Kidney function is worse, Zosyn has been discontinued and changed to Levaquin and Flagyl, nephrology consult placed 09/06: Patient evaluated today, has complaints of bilateral lower extremity pain, morphine changed to 2 mg IV push along with tramadol as needed. He also had upper extremity swelling around the site of the IV, IV was discontinued most likely secondary to infiltration, no signs of cellulitis. Patient has not had a bowel movement in several days, soapsud enema ordered. Kidney function has worsened from 2.9 yesterday to 3.2, BUN 48, sodium 135, potassium 4.6, WBC 18, hemoglobin 11.3. Nephrology on consult, IV diuretics on hold as well as amlodipine, renal ultrasound and bladder scans ordered. Kidney ultrasound showed multiple left-sided renal cysts, right kidney is surgically absent. Abdominal x-ray showed overall nonobstructive bowel gas pattern. Modified barium swallow showed there was penetration and aspiration with thin barium. Transient penetration with nectar thick substances. Vallecular residuals were noted with solids 09/07: Patient evaluated at the bedside for follow-up. Patient had repeat chest x-ray that showed bilateral pulmonary nodules that are stable with persistent basilar and perihilar infiltrates, underlining interstitial pneumonitis cannot be excluded. Antibiotics have been changed Levaquin was changed to Zosyn for concern for aspiration pneumonia. Infectious disease has been consulted. Patient continues with aspiration precautions and nectar thick liquids with chin tuck. Laboratory value show WBCs increased to 20.4, hemoglobin 11.1, kidney function has worsened creatinine now 3.5, BUN 59. Nephrology is on consult. Will check a lipase tomorrow. Objective - Vital Signs Vital signs: Vital Signs Temp 98.2 F 09/07/20 04:18 Pulse 85 09/07/20 08:03 Resp 18 05/15/21 04:18 BP 97/60 09/07/20 04:18 Pulse Ox 92 L 09/07/20 04:18 Intake & Output 09/06/20 09/07/20 09/07/20 18:59 06:59 18:59 Intake Total 100 400 Balance 100 400 Weight 107.5 kg 107 kg Intake: Intake, IV Titration 100 100 Amount metroNIDAZOLE-NS PMX 500 100 100 mg In Saline 1 100ml.bag @ 100 mls/hr IVPB Q8HR [facility] Rx#:[id number] Oral 300 Other: Voiding Method Toilet Bedside Commode Urinal Urinal # Voids 2 2 - Exam - Constitutional General appearance: cooperative, no acute distress. Resting comfortably in bed - EENT Eyes: anicteric sclerae, PERRLA, normal appearance ENT: hearing grossly normal - Neck Neck: no lymphadenopathy, normal ROM, no other, no rigidity, no stridor, no thyromegaly - Respiratory Respiratory: bilateral air entry bilaterally no crackles or rhonchi noted - Cardiovascular Rhythm: regular Heart sounds: normal: S1, S2 Abnormal Heart Sounds: no systolic murmur, no diastolic murmur, no rub, no S3 Gallop, no S4 Gallop, no click - Gastrointestinal General gastrointestinal: normal bowel sounds, soft abdomen - Integumentary Integumentary: no rash - Neurologic Neurologic: No motor or sensory deficit - Musculoskeletal Musculoskeletal: gait normal, strength equal bilaterally - Psychiatric Psychiatric: A&O x's 3, appropriate affect - Labs CBC & Chem 7: 09/07/20 05:48 09/07/20 05:48 Labs: Abnormal Lab Results - Last 24 Hours (Table) 09/07/20 09/07/20 Range/Units 05:48 05:48 WBC 20.4 H (3.8-10.6) k/uL RBC 3.55 L (4.30-5.90) m/uL Hgb 11.1 L (13.0-17.5) gm/dL Hct 34.4 L (39.0-53.0) % BUN 59.0 H (9.0-27.0) mg/dL Creatinine 3.5 H (0.6-1.5) mg/dL Est GFR (CKD-EPI)AfAm 17.1 L (60.0-200.0) Est GFR (CKD-EPI)NonAf 14.7 L (60.0-200.0) Glucose 122 H (70-110) mg/dL Calcium 8.3 L (8.7-10.3) mg/dL AST 40 H (14-35) U/L Total Protein 5.6 L (6.2-8.2) g/dL Albumin 3.20 L (3.80-4.90) g/dL Albumin/Globulin Ratio 1.33 L (1.60-3.17) g/dL Assessment and Plan Plan: 1. Acute abdominal pain secondary to pancreatitis and possible ileus. Abdominal x-ray nonspecific abdomen. Tolerating clear liquid diet will advance diet as tolerated. IV fluids discontinued 2. Acute Pancreatitis unclear etiology. Ultrasound gallbladder negative for gallstones. No alcohol use. GI consulted. It is improved since yesterday. Currently patient in on a pured diet tumor markers and negative for pancreatic cancer . MRI ordered to evaluate the pancreatic lesions, unable to completely MRI due to patient could not fit in the MRI 3. Sepsis secondary to Acute diverticulitis with CAT scan positive for focal inflammatory process involving the right colon with pedunculated diverticuli in the right colon. Continue Flagyl. Tumor markers negative for primary colon carcinoma. Surgery consulted for possible ischemic bowel 4. Sepsis secondary to Acute UTI, Positive for infection continue levaquin 5. Multiple liver lesions and lung lesion concerning for metastatic versus primary disorder reviewed the case with oncology. Liver and lung lesions are old. No immediate for liver biopsy at this moment. 6 bilateral lower extremity edema venous Doppler negative for DVT. 7. COPD not in exacerbation. Continue DuoNeb treatments 4 times daily as needed 8. Mild intermittent asthma, stable. 9. History of renal cell cancer status post right-sided nephrectomy. 10. Metastatic renal cell cancer to the lungs . Patient had VATS and left upper lobe biopsies suggestive of clear cell carcinoma status post chemotherapy - pazotinib till feb 2015, discontinued due to fatigue 11. 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 12. Hypertension. Continue amlodipine 10 mg at bedtime. Hold losartan 13. Hypothyroidism. Continue levothyroxine 112 g daily. 14. Benign prostatic hypertrophy. Continue Flomax 0.4 mg daily. 15. Acute kidney injury secondary to ATN with Chronic kidney disease stage III. Continue to monitor. Avoid nephrotoxic agents. Losartan on hold for now. Discontinue Zosyn. Nephrology on consult 16. DVT prophylaxis. Lovenox. 17. GI prophylaxis and GERD. Continue pantoprazole 40 mg 18 disposition patient is undergoing patient's night for stabilization 19 CODE STATUS discussed with patient patient would like to be a no code 20 constipation no improvement with Dulcolax suppository. Dulcolax 5 mg by mouth daily. soapsuds enema 21 dysphasia. Modified barium swallow showed penetration and aspiration, recommended nectar thick liquids 22 aspiration pneumonia. Started on Zosyn, infectious disease on consult. The above impression and plan of care have been discussed and directed by signing physician. Keke Zhou nurse practitioner acting as scribe for signing physician.
--- NOTE | 2020-09-07 14:07 | PN ---
PROGRESS NOTE The patient is seen for followup for acute kidney injury. His creatinine has worsened over the last couple of days. Serum creatinine is at 3.5 from 2.9 on 09/05/2020. Currently patient is voiding. His urine output is not accurately charted. He is awake, comfortable. He is not in any acute distress. PHYSICAL EXAMINATION: Blood pressure this morning was 92/51. He is afebrile. Heart rate 85 per minute. Examination of the heart S1, S2. Examination of the lungs, decreased breath sounds at bases. Abdomen is soft, nontender. Examination lower extremities shows trace edema. [employer] exam grossly intact. LABS: From today show sodium 137, potassium 4.2, chloride 105, BUN 59, serum creatinine 3.5, hemoglobin 11.1 g/dL. ASSESSMENT: Acute kidney injury in a patient with solitary kidney, mostly acute tubular necrosis from hypotension and underlying infection. Serum creatinine has been worsening over the last 2-3 days. Urine output is not accurately charted. I will check bladder scan. Rule out urine retention. Patient is currently off diuretics. Blood pressure remains on the lower side. I will add midodrine as well. No nephrotoxic agents on board currently. Patient is not on any IV fluids. Chest x-ray from today shows persistent basilar and perihilar infiltrate. Add gentle IV hydration and follow up on the bladder scan. The ultrasound of the kidneys done yesterday does not show any significant abnormalities on the left kidney except for a left-sided cyst. MMODL / IJN: [id number] /
[2020-09-07] MEDS: SODIUM CHLORIDE 0.9% 1,000 ML IV SCH (15:44)
[2020-09-07] MEDS ORDERED: FLUCONAZOLE 100 MG TAB PO ONE (17:00)
[2020-09-07] MEDS: SCOPOLAMINE 1.5MG/72HR PATCH TRANSDERM SCH (17:51)
--- NOTE | 2020-09-07 18:54 | PN ---
PROGRESS NOTE DATE OF SERVICE: 09/07/2020 CHIEF COMPLAINT: Abdominal distention and pain. Norm seen today as a followup. He continues to have some abdominal distention, nauseated, and some abdominal pain. No vomiting. No fever or chills. CURRENT MEDICATION: Reviewed in his electronic medical record. PHYSICAL EXAMINATION: He is alert, oriented x3. He does not appear to be in acute distress. His vital signs: Temperature 98.0, pulse 85 regular, respiration 19, blood pressure 92/51. HEENT: Normocephalic, atraumatic. No obvious icterus. Oral mucosa are dry. NECK: Supple. CHEST: Equal expansion bilaterally. LUNGS: Clear to auscultation. HEART: Regular rate and rhythm. ABDOMEN: Distended, generalized tenderness. Hypoactive bowel sounds. No obvious organomegaly. EXTREMITIES: Revealed no edema. RADIOGRAPHIC DATA: He had renal ultrasound yesterday revealed multiple renal cysts. LABORATORY DATA: WBC of 20.4, hemoglobin 11.1, hematocrit is 34.4, platelets are 252. Sodium 137, potassium 4.2, chloride 101. CO2 is 21.2. The BUN is 59.0 and creatinine is 3.5. AST is 40, ALT is 19, alkaline phosphatase 77. ASSESSMENT: 1. Metastatic renal cell carcinoma. The patient has been stable with no metastatic disease for several years without any intervention. In fact, recent CT scan reveals stable lung nodules and his liver lesions are stable and are stable and they were present on previous imaging dating back to at least 2014. 2. Acute pancreatitis. The etiology is still not clear. Certainly, metastatic renal cell carcinoma to the pancreas is a possibility and that is not uncommon in renal cell carcinoma and this is in the differential diagnosis. 3. Acute kidney injury, being managed by Nephrology. RECOMMENDATION: 1. I discussed the above impression with the patient and his . 2. Continue current management with conservative management of his pancreatitis. 3. Once he is more stable, we should consider an MRCP for further evaluation. MMODL / IJN: [id number] /
[2020-09-07] MEDS: MELATONIN 5 MG TABLET PO SCH (21:39)
[2020-09-07] MEDS: PIPERACILLIN-TAZOBACTAM 3.375 GM in SODIUM CHLORIDE 0.9% 100 ML IVPB SCH (21:39)
[2020-09-07] MEDS ORDERED: metroNIDAZOLE 500 MG TAB PO SCH (22:00)
--- NOTE | 2020-09-07 22:06 | CONS ---
CONSULTATION DATE OF SERVICE: 09/07/2020 REASON FOR CONSULTATION: Aspiration pneumonia. HISTORY OF PRESENT ILLNESS: The patient is an 89 -year-old male with past medical history significant for renal cell carcinoma status post right nephrectomy in 1993. The patient also has a history of multiple pulmonary nodules with evidence of metastatic clear cell carcinoma. The patient presented to [facility] on 09/01/2020, about 6 days ago for evaluation of severe epigastric abdominal pain and distention that started about 3 in the morning. The patient's workup in the ER did shows CT of abdomen and pelvis that did show abnormal loop of bowel in the mid abdomen adjacent to the superior vena cava. . Large fluid-filled diverticula of the right colon without evidence for inflammation and multiple pulmonary and liver masses highly suspicious for metastatic disease. The patient has been treated with Zosyn and has been under care of the [facility] and Oncology. Ultrasound of the gallbladder was unremarkable. The patient was on Zosyn that was switched over to Levaquin and Flagyl. The patient did have fluoroscope swallow evaluation on September 06, which did show evidence of penetration and aspiration with thin barium and transient penetration with nectar thick substance. The patient had been complaining of increasing coughing and sputum production, though denies having any chest pain. Breathing seems to be slight some shortness of breath on exertion. The patient's abdominal pain has improved and denies having any nausea or vomiting and no diarrhea either. The patient is constipated. With concern for possible aspiration pneumonia, patient advised was switched back to Zosyn. Infectious Disease was consulted today for further management of antibiotic therapy. REVIEW OF SYSTEMS: Positive points have been mentioned in HPI. The rest of the systems are negative. PAST MEDICAL HISTORY: Asthma, hypertension, pneumonia, hypothyroidism, renal cancer with metastatic disease to the lungs and liver. PAST SURGICAL HISTORY: Right nephrectomy, laryngoscopy, nodule removed from the lungs, bilateral cataract surgery, thyroidectomy, left hemiarthroplasty of the left subcapital fracture. SOCIAL HISTORY: Remote history of smoking. No drinking or drug use. FAMILY HISTORY: Father with history of coronary artery disease. ALLERGIES: IODINATED CONTRAST MEDIA. MEDICATIONS: The patient is currently on Tylenol, DuoNeb, Tessalon Perles, Dulcolax, Symbicort, Lovenox, Mucinex, and Synthroid, melatonin, both IV and oral Flagyl, Zosyn, scopolamine patch, Flomax and Ultram. PHYSICAL EXAMINATION: Blood pressure 100/51 with a pulse of 80, temperature 98. He is 95% on 18 L nasal cannula. General description: The patient is an elderly male up in the chair in no distress. HEENT: Examination shows slight pallor. No scleral icterus. Oral mucous membranes dry. NECK: Trachea central. No thyromegaly. LUNGS: Unlabored breathing. Coarse breath sounds bilaterally. No wheeze. HEART: S1, S2. Regular rate and rhythm. Abdomen soft. No tenderness. No guarding. No rigidity. EXTREMITIES: No edema of the feet. SKIN: No rash or mass palpable. Neurological: Patient is awake, alert, oriented times three. Mood and affect normal. LABS: Hemoglobin 9.1, white count 20.4, BUN of 59, creatinine 3.5. His electrolytes have been normal. Liver enzymes are normal. Urine culture negative. No blood culture has been done on this admission. DIAGNOSTIC IMPRESSION AND PLAN: 1. Patient admitted to the hospital with abdominal pain in this patient now with evidence of increasing shortness of breath and cough with concern for possible aspiration pneumonitis with abnormal swallow evaluation. Risk of aspiration. We need to cover for the enteric gram-negative to be likely pathogen. 2. Patient elevated white count, possibly due to aspiration pneumonitis or could be oropharyngeal candidiasis in this patient who has been exposed to antibiotics. PLAN: 1. We will obtain sputum for Gram stain and culture. 2. We will check a CRP and procalcitonin level. 3. Continue with Zosyn, however, discontinue Flagyl and add Diflucan. 4. We will follow on his clinical condition and culture to further adjust medication if needed. Thank you for this consultation. We will follow the patient along with you. MMODL / IJN: [id number] / MTDBernie
[2020-09-08] MEDS: LEVOTHYROXINE 112 MCG TAB PO SCH (05:55)
[2020-09-08 06:02] LABS: Basophils # (A) 0.1 k/uL (0-0.2); Basophils % (A) 0 %; Eosinophils # (A) 0.1 k/uL (0-0.7); Eosinophils % (A) 0 %; HCT 34.9 % (39.0-53.0); HGB 11.4 gm/dL (13.0-17.5); Hypochromasia Slight; Lymphocytes # (A) 0.7 k/uL (1.0-4.8); Lymphocytes % (A) 3 %; MCH 32.3 pg (25.0-35.0); MCHC 32.8 g/dL (31.0-37.0); MCV 98.5 fL (80.0-100.0); Mean Platelet Volume 7.4; Monocytes # (A) 0.7 k/uL (0-1.0); Monocytes % (A) 3 %; Neutrophils # (A) 20.4 k/uL (1.3-7.7); Neutrophils % (A) 92 %; Platelet Count 273 k/uL (150-450); RBC 3.54 m/uL (4.30-5.90); RDW 13.1 % (11.5-15.5)
[2020-09-08] MEDS: IPRATROPIUM-ALBUTEROL 3 ML NEB INHALATION SCH ×4 (08:32→21:35)
[2020-09-08] MEDS: SYMBICORT 160-4.5 MCG INHALER INHALATION SCH ×2 (08:32→21:35)
[2020-09-08] MEDS: PANTOPRAZOLE 40 MG TABLET PO SCH (08:46)
[2020-09-08] MEDS: MONTELUKAST 10 MG TAB PO SCH (08:46)
[2020-09-08] MEDS: BENZONATATE 100 MG CAP PO SCH ×3 (08:46→22:05)
[2020-09-08] MEDS: bisacodyL 5 MG TABLET.DR PO SCH (08:46)
[2020-09-08] MEDS: FLUCONAZOLE 100 MG TAB PO SCH (08:46)
[2020-09-08] MEDS: TAMSULOSIN 0.4 MG CAP.ER.24H PO SCH (08:46)
[2020-09-08] MEDS: guaiFENesin 600 MG TABLET.ER PO SCH ×2 (08:47→22:05)
[2020-09-08] MEDS: traMADol 50 MG TAB PO SCH (08:47)
[2020-09-08] MEDS: polyethylene glycoL 3350 17 GM POWD.PACK PO SCH (08:47)
[2020-09-08] MEDS: PIPERACILLIN-TAZOBACTAM 3.375 GM in SODIUM CHLORIDE 0.9% 100 ML IVPB SCH ×2 (08:47→22:05)
[2020-09-08] MEDS: FLUTICASONE 50MCG/SPRAY NASAL 16GM EA NOSTRIL SCH ×2 (08:47→22:05)
[2020-09-08] MEDS: ENOXAPARIN 30 MG/0.3 ML SYRINGE SQ SCH (08:48)
[2020-09-08] MEDS: SODIUM CHLORIDE 0.9% 1,000 ML IV SCH ×3 (08:48→15:07)
--- NOTE | 2020-09-08 08:54 | XR ---
EXAMINATION TYPE: XR abdomen 1V DATE OF EXAM: 09/08/2020 COMPARISON: NONE HISTORY: Pain TECHNIQUE: One view abdominal series FINDINGS: The osseous structures are intact. The bowel gas pattern is nonspecific. Retained contrast within co sergo. Degenerative changes spine. Arthritic change right hip and postsurgical change left hip. Subsegm ental consolidation at both lung bases. IMPRESSION: 1. Nonspecific abdomen with retained contrast throughout the colon. No significant interval change fr om prior exam.
[2020-09-08 10:36] LABS: African American GFR (CKD) 11.6 (60.0-200.0); Albumin 3.2 g/dL (3.80-4.90); Albumin/Globulin Ratio 1.28 (1.60-3.17); Anion Gap 11.6 mmol/L (4.00-12.00); BUN/Creat Ratio 14.79 Ratio (12.00-20.00); C Reactive Protein 27.8 mg/dL (0.0-0.8); Calcium 8.3 mg/dL (8.7-10.3); Carbon Dioxide 23.4 mmol/L (21.6-31.8); Globulin 2.5 g/dL (1.6-3.3); Potassium 4.7 mmol/L (3.5-5.5); Total Bilirubin 0.7 mg/dL (0.3-1.2); Total Protein 5.7 g/dL (6.2-8.2)
--- NOTE | 2020-09-08 11:11 | P.PN ---
Subjective 89 years old male with past medical history of renal cell carcinoma originally diagnosed in 1993 followed by a right nephrectomy. Patient followed Dr. Warner for his care. He did have a lung nodule and since 2899 and multiple lung nodules for which patient had a PET scan in November 2011 with no significant uptake. On 2011 patient had a VAC and the left upper lobe wedge resection biopsy which revealed a metastatic clear cell carcinoma. 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 Patient had multiple imaging including a brain MRI bone scan in December 2011 which were negative for metastasis. He did have a CAT scan of the chest in 01/07/2012 with slight improvement in his lung nodules. He received oral pazotinib for 3 years which was discontinued in February 2015 due to fatigue. Patient was last admitted in March/2024 for possible COPD e xacerbation and chest wall pain. Patient comes in today with severe epigastric abdominal and distention that started 3 in the morning yesterday. Patient also documents increased cough with sputum production but denies any shortness of breath. He denies any difficulty swallowing or unintentional weight loss but does have loss of appetite. Patient denies any change in bowel habits, no diarrhea or black stools. Last colonoscopy was 2013. The sigmoid diverticulosis but no polyps or neoplasm. On evaluation in the ER patient was afebrile pulse 85 respiratory rate 18 blood pressure 120/75. He was noted to have pancreatitis. And was admitted for IV hydration and kept nothing by mouth. Labs are reviewed patient with leukocytosis of 22,000, hemoglobin 14.9 hematocrit 44 platelet 238 sodium 135 potassium 4.9 chloride 104 bicarb 23 BUN 32 creatinine 1.84 glucose of 129, mildly as of 1900 and lipase 13,000 857. UA was positive for 100 WBCs last leukocyte esterase and RBCs. 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 Influenza and COVID-19 virus was negative. gallbladder ultrasound was negative for gallstones or dilation CBD. GI consulted and oncology consulted for new lesions. CT abdomen suggested abnormal loop of bowel in the mid abdomen suggestive of focal inflammation process or ischemia. Large fluid-filled diverticular of the right colon without evidence of inflammation. No free int raperitoneal air or fluid noted and surgical absence of right kidney. Multiple pulmonary and liver masses suspected of metastatic disease. Start patient on Zosyn 3.375 every 8 hours per for UTI and diverticulitis. IR consult for possible liver biopsy 09/03 patient examined bedside. Continues to complain of abdominal distention with no bowel movement since Wednesday. Abdominal x-ray revealed yesterday had nonspecific bowelsigns of obstruction noted. Patient's vitals evaluated patient had a fever of 98 pulse 96 respiratory rate 22 blood pressure 119/67 oxygen saturation 92% on 2 L. Labs are reviewed patient's hemoglobin is 14.1 WBC was elevated at 26 platelet 214 ESR is elevated CRP is 19 lipase has improved to 182 CMP reviewed patient's sodium is 137 potassium 4.9 chloride 105 BUN 35 creatinine 1.94 chest x-ray revealed suggest basilar infiltrate concerning for mild CHF. Venous Doppler were obtained yesterday are negative for bilateral DVTs does have popliteal cyst on the left. Dough Braker's notes were reviewed. GI recommends advancing to clear liquid diet. Tumor markers including AFP, CEA, CA 19/9 antigen is negative triglycerides pending. No plan for endoscopy evaluation in the setting of pancreatitis and possible ileus. Case discussed with oncology, liver lesions appears to be chronic. Liver biopsy is not indicated at this moment. Pancreatitis could be a result of pancreatic lesions from renal cell carcinoma. We'll evaluate with an MRI without contrast as juwan donis cannot receive contrast due to her current kidney functions. Continue Zosyn for possible diverticulitis. Dulcolax suppository given yesterday with no improvement of patient's constipation. Fleet enema ordered for today. Surgery consulted for possible ischemic bowel though lactic acid is normal. ProBNP is normal unlikely to have CHF at this moment. Repeat chest x-ray tomorrow we will discontinue IV fluids due to concern for volume overload 09/04: Patient evaluated at the bedside. Patient was scheduled for MRI and MRCP today, was not completed due to patient was unable to fit into the [facility] scanner. Labs reviewed today, WBC 22.4 hemoglobin 12.1. He has been tolerating a full liquid diet, will advance to pured diet. Vital signs have been stable he's afebrile temperatures 98.8, heart rate 99, respiratory 16, blood pressure 132/74, O2 saturation of 94% on 2 L via nasal cannula 09/05: Patient examined at the bedside. He continues to have complaints of cough with congestion. Chest x-ray shows multiple scattered pulmonary nodules, patchy basilar densities that are improving. Patient was given a dose of IV Lasix. Patient's abdominal distention and pain is much better today. Still has complaints of difficulty swallowing and unable to swallow pills, consult placed to speech therapy, recommended modified barium swallow, which has been ordered. Pressure has been running a little on the lower side, amlodipine was decreased to 5 mg daily. Laboratory evaluation WBC 18.4, hemoglobin 11.5, sodium 135, BUN 40, creatinine 3.2. Kidney function is worse, Zosyn has been discontinued and changed to Levaquin and Flagyl, nephrology consult placed 09/06: Patient evaluated today, has complaints of bilateral lower extremity pain, morphine changed to 2 mg IV push along with tramadol as needed. He also had upper extremity swelling around the site of the IV, IV was discontinued most likely secondary to infiltration, no signs of cellulitis. Patient has not had a bowel movement in several days, soapsud enema ordered. Kidney function has worsened from 2.9 yesterday to 3.2, BUN 48, sodium 135, potassium 4.6, WBC 18, hemoglobin 11.3. Nephrology on consult, IV diuretics on hold as well as amlodipine, renal ultrasound and bladder scans ordered. Kidney ultrasound showed multiple left-sided renal cysts, right kidney is surgically absent. Abdominal x-ray showed overall nonobstructive bowel gas pattern. Modified barium swallow showed there was penetration and aspiration with thin barium. Transient penetration with nectar thick substances. Vallecular residuals were noted with solids 09/07: Patient evaluated at the bedside for follow-up. Patient had repeat chest x-ray that showed bilateral pulmonary nodules that are stable with persistent basilar and perihilar infiltrates, underlining interstitial pneumonitis cannot be excluded. Antibiotics have been changed Levaquin was changed to Zosyn for concern for aspiration pneumonia. Infectious disease has been consulted. Patient continues with aspiration precautions and nectar thick liquids with chin tuck. Laboratory value show WBCs increased to 20.4, hemoglobin 11.1, kidney function has worsened creatinine now 3.5, BUN 59. Nephrology is on consult. Will check a lipase tomorrow. 09/08: Patient evaluated this morning, resting in bed comfortably. Patient has complaints of some abdominal pain with nausea and increasing shortness of breath. Abdominal x-ray ordered and showed nonspecific abdomen with retained contrast throughout the colon, no significant interval change from the previous exam. With patient's increased shortness of breath and most recent abnormal swallow evaluation there is concern for possible aspiration pneumonia. Patient had an elevated white count as well, possibly due to aspiration pneumonitis or possibly oropharyngeal candidiasis. Infectious diseases consult appreciated, will obtain sputum for Gram stain and culture, CRP and prolactin level ordered, recommended to continue with Zosyn and discontinue Flagyl and add Diflucan. Oncology consult appreciated recommends once the patient is more stable will consider MRCP to rule out metastatic renal cell carcinoma to the pancreas Objective - Vital Signs Vital signs: Vital Signs Temp 98.1 F 09/08/20 04:21 Pulse 92 09/08/20 04:21 Resp 18 09/08/20 04:21 BP 103/66 09/08/20 04:21 Pulse Ox 91 L 09/08/20 04:21 Intake & Output 09/07/20 09/08/20 09/08/20 18:59 06:59 18:59 Intake Total 500 Balance 500 Intake: Intake, IV Titration 500 Amount Piperacillin-Tazobactam 3 100 .375 gm In Sodium Chloride 0.9% 100 ml @ 25 mls/hr IVPB Q12HR DENEEN Rx #:[id number] Sodium Chloride 0.9% 1, 400 000 ml @ 50 mls/hr IV . Q20H DENEEN Rx#:[id number] Other: Voiding Method Bedside Commode Urinal # Voids 3 1 - Exam - Constitutional General appearance: cooperative, sitting up in the bed - EENT Eyes: anicteric sclerae, PERRLA, normal appearance ENT: hearing grossly normal - Neck Neck: no lymphadenopathy, normal ROM, no other, no rigidity, no stridor, no thyromegaly - Respiratory Respiratory: bilateral air entry bilaterally ,rhonchi noted - Cardiovascular Rhythm: regular Heart sounds: normal: S1, S2 Abnormal Heart Sounds: no systolic murmur, no diastolic murmur, no rub, no S3 Gallop, no S4 Gallop, no click - Gastrointestinal General gastrointestinal: normal bowel sounds, soft abdomen - Integumentary Integumentary: no rash - Neurologic Neurologic: No motor or sensory deficit - Musculoskeletal Musculoskeletal: gait normal, strength equal bilaterally - Psychiatric Psychiatric: A&O x's 3, appropriate affect - Labs CBC & Chem 7: 09/08/20 05:19 09/08/20 05:19 Labs: Abnormal Lab Results - Last 24 Hours (Table) 09/08/20 09/08/20 09/08/20 Range/Units 05:19 05:19 05:19 WBC 22.0 H (3.8-10.6) k/uL RBC 3.54 L (4.30-5.90) m/uL Hgb 11.4 L (13.0-17.5) gm/dL Hct 34.9 L (39.0-53.0) % Neutrophils # 20.4 H (1.3-7.7) k/uL Lymphocytes # 0.7 L (1.0-4.8) k/uL BUN 71.0 H (9.0-27.0) mg/dL Creatinine 4.8 H (0.6-1.5) mg/dL Est GFR (CKD-EPI)AfAm 11.6 L (60.0-200.0) Est GFR (CKD-EPI)NonAf 10.0 L (60.0-200.0) Calcium 8.3 L (8.7-10.3) mg/dL C-Reactive Protein 27.8 H (0.0-0.8) mg/dL Total Protein 5.7 L (6.2-8.2) g/dL Albumin 3.20 L (3.80-4.90) g/dL Albumin/Globulin Ratio 1.28 L (1.60-3.17) g/dL Procalcitonin 0.93 H (0.02-0.09) ng/mL Assessment and Plan Plan: 1. Acute abdominal pain secondary to pancreatitis and possible ileus. Abdominal x-ray nonspecific abdomen. Tolerating clear liquid diet will advance diet as tolerated. IV fluids discontinued 2. Acute Pancreatitis unclear etiology. Ultrasound gallbladder negative for gallstones. No alcohol use. GI consulted. Tumor markers are negative for pancreatic cancer. Once patient is more stable will consider an MRCP to rule out metastatic renal cell carcinoma to the pancreas, attempted MRI this stay, but was unable to complete the exam due to patient could not fit into MRI machine due to body habitus 3. Sepsis secondary to Acute diverticulitis with CAT scan positive for focal inflammatory process involving the right colon with pedunculated diverticuli in the right colon. Tumor markers negative for primary colon carcinoma. Surgery consult appreciated 4. Sepsis secondary to Acute UTI, Positive for infection continue Zosyn 5. Multiple liver lesions and lung lesion concerning for metastatic versus primary disorder reviewed the case with oncology. Liver and lung lesions are old. No immediate for liver biopsy at this moment. 6 bilateral lower extremity edema venous Doppler negative for DVT. 7. COPD not in exacerbation. Continue DuoNeb treatments 4 times daily as needed 8. Mild intermittent asthma, stable. 9. History of renal cell cancer status post right-sided nephrectomy. 10. Metastatic renal cell cancer to the lungs . Patient had VATS and left upper lobe biopsies suggestive of clear cell carcinoma status post chemotherapy - pazotinib till feb 2015, discontinued due to fatigue 11. 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 12. Hypertension. Continue amlodipine 10 mg at bedtime. Hold losartan 13. Hypothyroidism. Continue levothyroxine 112 g daily. 14. Benign prostatic hypertrophy. Continue Flomax 0.4 mg daily. 15. Acute kidney injury secondary to ATN with Chronic kidney disease stage III. Continue to monitor. Avoid nephrotoxic agents. Losartan on hold for now. Discontinue Zosyn. Nephrology on consult 16. DVT prophylaxis. Lovenox. 17. GI prophylaxis and GERD. Continue pantoprazole 40 mg 18 CODE STATUS discussed with patient patient would like to be a no code 19 constipation no improvement with Dulcolax suppository. Dulcolax 5 mg by mouth daily. soapsuds enema 20 dysphasia. Modified barium swallow showed penetration and aspiration, recommended nectar thick liquids 21 aspiration pneumonia. Started on Zosyn, infectious disease on consult. 22 oropharyngeal candidiasis. Diflucan The above impression and plan of care have been discussed and directed by signing physician. Keke Zhou nurse practitioner acting as scribe for signing physician.
--- NOTE | 2020-09-08 11:39 | P.PN ---
Subjective Progress Note Date: 09/08/20 Principal diagnosis: Colitis Patient has had intermittent right-sided abdominal pain. Today's abdominal x- rays show a nonspecific gas pattern. Some contrast seen throughout the colon with slightly more contrast present in the cecum. White blood cell count remains elevated at 22,000. Has had some flatus. No vomiting. Objective - Vital Signs Vital signs: Vital Signs Temp 98.1 F 09/08/20 04:21 Pulse 92 09/08/20 04:21 Resp 18 09/08/20 04:21 BP 103/66 09/08/20 04:21 Pulse Ox 91 L 09/08/20 04:21 Intake & Output 09/07/20 09/08/20 09/08/20 18:59 06:59 18:59 Intake Total 500 Balance 500 Intake: Intake, IV Titration 500 Amount Piperacillin-Tazobactam 3 100 .375 gm In Sodium Chloride 0.9% 100 ml @ 25 mls/hr IVPB Q12HR [facility] Rx #:[id number] Sodium Chloride 0.9% 1, 400 000 ml @ 50 mls/hr IV . Q20H DENEEN Rx#:[id number] Other: Voiding Method Bedside Commode Urinal # Voids 3 1 - Exam Abdomen: Soft, mild distention, mild right lower quadrant tenderness - Labs CBC & Chem 7: 09/08/20 05:19 09/08/20 05:19 Labs: Abnormal Lab Results - Last 24 Hours (Table) 09/08/20 09/08/20 09/08/20 Range/Units 05:19 05:19 05:19 WBC 22.0 H (3.8-10.6) k/uL RBC 3.54 L (4.30-5.90) m/uL Hgb 11.4 L (13.0-17.5) gm/dL Hct 34.9 L (39.0-53.0) % Neutrophils # 20.4 H (1.3-7.7) k/uL Lymphocytes # 0.7 L (1.0-4.8) k/uL BUN 71.0 H (9.0-27.0) mg/dL Creatinine 4.8 H (0.6-1.5) mg/dL Est GFR (CKD-EPI)AfAm 11.6 L (60.0-200.0) Est GFR (CKD-EPI)NonAf 10.0 L (60.0-200.0) Calcium 8.3 L (8.7-10.3) mg/dL C-Reactive Protein 27.8 H (0.0-0.8) mg/dL Total Protein 5.7 L (6.2-8.2) g/dL Albumin 3.20 L (3.80-4.90) g/dL Albumin/Globulin Ratio 1.28 L (1.60-3.17) g/dL Procalcitonin 0.93 H (0.02-0.09) ng/mL Assessment and Plan (1) Colitis Narrative/Plan: Patient has had intermittent abdominal pain. Today's x-rays stable in appeara nce. If pain persists tomorrow we will repeat CT abdomen and pelvis. Continue antibiotics for possible aspiration pneumonia. Make nothing by mouth for now given the abdominal discomforts. Current Visit: Yes Status: Acute Code(s): K52.9 - NONINFECTIVE GASTROENTERITIS AND COLITIS, UNSPECIFIED SNOMED Code(s): 11403757
[2020-09-08] MEDS: ONDANSETRON 4 MG/2 ML VIAL IVP PRN (12:16)
--- NOTE | 2020-09-08 15:19 | PN ---
PROGRESS NOTE Patient is seen for followup for acute kidney injury. The patient's general condition seems to be slightly worse today. He has had poor urine output. His creatinine has worsened to 4.8. Blood pressure is staying on the lower side with systolic at 92 now. PHYSICAL EXAMINATION: On examination today, blood pressure 92/58, heart rate 87 per minute, he is afebrile. Examination of the heart S1, S2. Examination of lungs, bilateral breath sounds are heard. Decreased breath sounds at bases. Examination of lower extremities shows no significant edema. Chronic skin changes noted. [employer]OCI[employer] exam grossly intact. LAB: Show sodium 139, potassium 4.7, chloride 104, BUN 71, creatinine 4.8, hemoglobin 11.4 g/dL. ASSESSMENT: 1. Acute kidney injury most likely acute tubular necrosis. Check bladder scan, rule out urine retention. Insert Guevara catheter if there is retention. I will add a dose of midodrine since blood pressure remains low. Continue with IV fluids. Agree with increasing fluids. Repeat labs in a.m. Avoid nephrotoxic agents. Agree with CT of the abdomen as well. 2. ( ) renal cell cancer. 3. Chronic kidney disease stage 3B. Baseline creatinine 1.5-1.8 secondary to solitary kidney nephrosclerosis. 4. Lung and liver metastasis. 5. Acute pancreatitis. 6. Metabolic acidosis associated with acute kidney injury. PLAN: Continue with IV fluids. Add midodrine. Hold off on antihypertensive medications. Check bladder scan. Insert Guevara catheter. Prognosis is guarded. MMODL / IJN: [id number] /
--- NOTE | 2020-09-08 16:40 | PN ---
PROGRESS NOTE DATE OF SERVICE: September 08, 2020. Luiz is seen today as a followup. He remains very tired, has abdominal distention and he is also having some shortness of breath and secretion as well. No bowel movement and he has leg edema. No fever or chills. CURRENT MEDICATION: Include Tylenol 650 mg q.8 hours, DuoNeb inhaler q.i.d., Tessalon Perles 100 mg t.i.d., Dulcolax 10 mg daily, Symbicort 2 puffs b.i.d., Lovenox 30 mg subcu daily, Diflucan 100 mg daily, Flonase nasal spray, Mucinex 600 mg q.12 hours, Synthroid 112 mcg daily, melatonin 10 mg q.h.s., ProAmatine 5 mg t.i.d., Singulair 10 mg a day. Morphine 2 mg IV every 6 hours as needed, Zofran 4 mg every 6 hours as needed. Protonix 40 mg p.o. twice a day. Zosyn 3.375 g IV every 12 hours. MiraLAX 12 mg daily. Scopolamine patch. Flomax 0.4 mg daily. Tramadol 50 mg daily. PHYSICAL EXAMINATION: He is alert, oriented x3. He appears to be congested. His vital signs: Temperature 97.5 afebrile, pulse is 90 and regular, respiration 20, blood pressure 92/52, pulse ox is 91 percent on 3 L. HEENT: Normocephalic, atraumatic. Oral mucosa are dry. NECK: Supple. CHEST equal expansion bilaterally. LUNGS: Crackles at both bases. ABDOMEN is mildly distended with right lower quadrant tenderness. EXTREMITIES reveal 1+ edema. LABORATORY DATA: WBC 22.0, hemoglobin is 11.4, hematocrit is 34.9, platelet 275. Sodium 139, potassium 4.7, chloride 104, CO2 is 23, BUN 71, creatinine 4.88. His lipase is 25. IMPRESSION: 1. Metastatic renal cell carcinoma. The patient has had stable metastatic disease for several years. The reported liver lesion and lung lesion have been stable at least since 2014. 2. Acute pancreatitis and he has evidence of colitis as well. Clinically, this is not improving. 3. Diverticulitis. He is on broad-spectrum antibiotics and being monitored by surgery as well. 4. Remote history of laryngeal cancer in 2002 without any evidence of recurrence. 5. Acute kidney injury, followed by Nephrology. RECOMMENDATION: 1. Continue current supportive care. 2. If his abdominal pain persists then he may require a repeat CT scan of the abdomen. 3. In regard to his renal cell carcinoma, this appears to be stable at this point in time. However, down the road, since the cause of his pancreatitis is not clear, he may require an MRCP for further evaluation. Certainly, metastatic renal cell carcinoma to the pancreas is one of the differential diagnoses. Thank you very much. The above was discussed with the patient and his son at bedside and I have answered all their questions. MMODL / IJN: [id number] /
[2020-09-08] MEDS: MIDODRINE 5 MG TAB PO SCH (17:46)
--- NOTE | 2020-09-08 20:14 | PN ---
PROGRESS NOTE DATE OF SERVICE: 09/08/2020 REASON FOR FOLLOWUP: Aspiration pneumonia. INTERVAL HISTORY: The patient is currently afebrile, has been complaining of shortness of breath. He did have a cough, not bringing up sputum. No nausea, vomiting, abdominal pain or diarrhea. PHYSICAL EXAMINATION: Blood pressure 92/58 with a pulse of 80, temperature 97.5. He is 91% on 3 L nasal cannula. General description: The patient is an elderly male up in the bed in no distress Respiratory system: Unlabored breathing, coarse breath sounds bilaterally. No wheeze. Heart S1, S2. Regular rate and rhythm. Abdomen soft, no tenderness. LABS: Hemoglobin 11.3, white count 22,000. BUN of 21, creatinine 4.8. DIAGNOSTIC IMPRESSION AND PLAN: Patient with elevated white count more likely multifactorial in this patient possible Reactive plus/minus hemo concentration with significant elevated BUN and creatinine. Patient is covered with Zosyn and Diflucan. Try to obtain a sputum to narrow down his antibiotics and continue supportive care. MMODL / IJN: [id number] / DERREK
[2020-09-08 21:40] LABS: Glucose,Whole Blood 93 mg/dL (75-99)
[2020-09-08] MEDS: MELATONIN 5 MG TABLET PO SCH (22:05)
[2020-09-09] MEDS: LEVOTHYROXINE 112 MCG TAB PO SCH (05:56)
[2020-09-09 06:40] LABS: Basophils # (A) 0.1 k/uL (0-0.2); Basophils % (A) 0 %; Eosinophils # (A) 0.1 k/uL (0-0.7); Eosinophils % (A) 0 %; HCT 36.5 % (39.0-53.0); HGB 10.9 gm/dL (13.0-17.5); Hypochromasia Marked; Lymphocytes # (A) 0.9 k/uL (1.0-4.8); Lymphocytes % (A) 4 %; MCHC 29.9 g/dL (31.0-37.0); MCV 100.5 fL (80.0-100.0); Macrocytosis Slight; Mean Platelet Volume 7.6; Monocytes # (A) 0.7 k/uL (0-1.0); Monocytes % (A) 3 %; Neutrophils # (A) 22.1 k/uL (1.3-7.7); Neutrophils % (A) 92 %; Platelet Count 320 k/uL (150-450); RBC 3.63 m/uL (4.30-5.90); RDW 13.6 % (11.5-15.5); WBC 23.9 k/uL (3.8-10.6)
[2020-09-09] MEDS: IPRATROPIUM-ALBUTEROL 3 ML NEB INHALATION SCH ×4 (07:18→20:35)
[2020-09-09] MEDS: SYMBICORT 160-4.5 MCG INHALER INHALATION SCH ×2 (07:18→20:35)
[2020-09-09] MEDS: polyethylene glycoL 3350 17 GM POWD.PACK PO SCH (08:31)
[2020-09-09] MEDS: PIPERACILLIN-TAZOBACTAM 3.375 GM in SODIUM CHLORIDE 0.9% 100 ML IVPB SCH (08:31)
[2020-09-09] MEDS: ENOXAPARIN 30 MG/0.3 ML SYRINGE SQ SCH (08:41)
[2020-09-09] MEDS: traMADol 50 MG TAB PO SCH (08:41)
[2020-09-09] MEDS: MIDODRINE 5 MG TAB PO SCH ×3 (08:42→16:55)
[2020-09-09] MEDS: bisacodyL 5 MG TABLET.DR PO SCH (08:42)
[2020-09-09] MEDS: guaiFENesin 600 MG TABLET.ER PO SCH ×2 (08:42→22:25)
[2020-09-09] MEDS: BENZONATATE 100 MG CAP PO SCH ×3 (08:42→22:25)
[2020-09-09] MEDS: MONTELUKAST 10 MG TAB PO SCH (08:42)
[2020-09-09] MEDS: FLUCONAZOLE 100 MG TAB PO SCH (08:43)
[2020-09-09] MEDS: FLUTICASONE 50MCG/SPRAY NASAL 16GM EA NOSTRIL SCH ×2 (08:43→22:26)
[2020-09-09] MEDS: TAMSULOSIN 0.4 MG CAP.ER.24H PO SCH (08:43)
[2020-09-09] MEDS: PANTOPRAZOLE 40 MG TABLET PO SCH (08:43)
[2020-09-09 10:00] LABS: African American GFR (CKD) 9.3 (60.0-200.0); Albumin 2.9 g/dL (3.80-4.90); Albumin/Globulin Ratio 1.16 (1.60-3.17); Anion Gap 13.8 mmol/L (4.00-12.00); BUN/Creat Ratio 13.79 Ratio (12.00-20.00); Carbon Dioxide 20.2 mmol/L (21.6-31.8); Globulin 2.5 g/dL (1.6-3.3); Potassium 5.1 mmol/L (3.5-5.5); Total Bilirubin 0.5 mg/dL (0.3-1.2); Total Protein 5.4 g/dL (6.2-8.2)
[2020-09-09] MEDS: SODIUM CHLORIDE 0.9% 1,000 ML IV SCH ×2 (11:39→22:25)
--- NOTE | 2020-09-09 14:12 | P.PN ---
Subjective Progress Note Date: 09/09/20 HISTORY OF PRESENT ILLNESS 89-year-old male with past medical history of renal cell carcinoma originally diagnosed in 1993 followed by a right nephrectomy. Patient followed Dr. Warner for his care. He did have a lung nodule and since 0 and multiple lung nodules for which patient had a PET scan in November 2011 with no significant uptake. On 2011 patient had a VAC and the left upper lobe wedge resection biopsy which revealed a metastatic clear cell carcinoma. 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 Patient had multiple imaging including a brain MRI bone scan in December 2011 which were negative for metastasis. He did have a CAT scan of the chest in 01/07/2012 with slight improvement in his lung nodules. He received oral pazotinib for 3 years which was discontinued in February 2015 due to fatigue. Patient was last admitted in March/2024 for possible COPD exacerbation and chest wall pain. Patient comes in today with severe epigastric abdominal and distention that started 3 in the morning yesterday. Patient also documents increased cough with sputum production but denies any shortness of breath. He denies any difficulty swallowing or unintentional weight loss but does have loss of appetite. Patient denies any change in bowel habits, no diarrhea or black stools. Last colonoscopy was 2013. The sigmoid diverticulosis but no polyps or neoplasm. On evaluation in the ER patient was afebrile pulse 85 respiratory rate 18 blood pressure 120/75. He was noted to have pancreatitis. And was admitted for IV hydration and kept nothing by mouth. Labs are reviewed patient with leukocytosis of 22,000, hemoglobin 14.9 hematocrit 44 platelet 238 sodium 135 potassium 4.9 chloride 104 bicarb 23 BUN 32 creatinine 1.84 glucose of 129, mildly as of 1900 and lipase 13,000 857. UA was positive for 100 WBCs last leukocyte esterase and RBCs. 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 Influenza and COVID-19 virus was negative. gallbladder ultrasound was negative for gallstones or dilation CBD. GI consulted and oncology consulted for new lesions. CT abdomen suggested abnormal loop of bowel in the mid abdomen suggestive of focal inflammation process or ischemia. Large fluid-filled diverticular of the right colon without evidence of inflammation. No free intraperitoneal air or fluid noted and surgical absence of right kidney. Multiple pulmonary and liver masses suspected of metastatic disease. Start patient on Zosyn 3.375 every 8 hours per for UTI and diverticulitis. IR consult for possible liver biopsy 09/03 patient examined bedside. Continues to complain of abdominal distention with no bowel movement since Wednesday. Abdominal x-ray revealed yesterday had nonspecific bowelsigns of obstruction noted. Patient's vitals evaluated patient had a fever of 98 pulse 96 respiratory rate 22 blood pressure 119/67 oxygen saturation 92% on 2 L. Labs are reviewed patient's hemoglobin is 14.1 WBC was elevated at 26 platelet 214 ESR is elevated CRP is 19 lipase has improved to 182 CMP reviewed patient's sodium is 137 potassium 4.9 chloride 105 BUN 35 creati nine 1.94 chest x-ray revealed suggest basilar infiltrate concerning for mild CHF. Venous Doppler were obtained yesterday are negative for bilateral DVTs does have popliteal cyst on the left. Warehouse Supervisor's notes were reviewed. GI recommends advancing to clear liquid diet. Tumor markers including AFP, CEA, CA 19/9 antigen is negative triglycerides pending. No plan for endoscopy evaluation in the setting of pancreatitis and possible ileus. Case discussed with oncology, liver lesions appears to be chronic. Liver biopsy is not indicated at this moment. Pancreatitis could be a result of pancreatic lesions from renal cell carcinoma. We'll evaluate with an MRI without contrast as patient cannot receive contrast due to her current kidney functions. Continue Zosyn for possible diverticulitis. Dulcolax suppository given yesterday with no improvement of patient's constipation. Fleet enema ordered for today. Surgery consulted for possible ischemic bowel though lactic acid is normal. ProBNP is normal unlikely to have CHF at this moment. Repeat chest x-ray tomorrow we will discontinue IV fluids due to concern for volume overload 09/04: Patient evaluated at the bedside. Patient was scheduled for MRI and MRCP today, was not completed due to patient was unable to fit into the [facility]KR[facility] scanner. Labs reviewed today, WBC 22.4 hemoglobin 12.1. He has been tolerating a full liquid diet, will advance to pured diet. Vital signs have been stable he's afebrile temperatures 98.8, heart rate 99, respiratory 16, blood pressure 132/74, O2 saturation of 94% on 2 L via nasal cannula 09/05: Patient examined at the bedside. He continues to have complaints of cough with congestion. Chest x-ray shows multiple scattered pulmonary nodules, patchy basilar densities that are improving. Patient was given a dose of IV Lasix. Patient's abdominal distention and pain is much better today. Still has complaints of difficulty swallowing and unable to swallow pills, consult placed to speech therapy, recommended modified barium swallow, which has been ordered. Pressure has been running a little on the lower side, amlodipine was decreased to 5 mg daily. Laboratory evaluation WBC 18.4, hemoglobin 11.5, sodium 135, BUN 40, creatinine 3.2. Kidney function is worse, Zosyn has been discontinued and changed to Levaquin and Flagyl, nephrology consult placed 09/06: Patient evaluated today, has complaints of bilateral lower extremity pain, morphine changed to 2 mg IV push along with tramadol as needed. He also had upper extremity swelling around the site of the IV, IV was discontinued most likely secondary to infiltration, no signs of cellulitis. Patient has not had a bowel movement in several days, soapsud enema ordered. Kidney function has worsened from 2.9 yesterday to 3.2, BUN 48, sodium 135, potassium 4.6, WBC 18, hemoglobin 11.3. Nephrology on consult, IV diuretics on hold as well as amlodipine, renal ultrasound and bladder scans ordered. Kidney ultrasound showed multiple left-sided renal cysts, right kidney is surgically absent. Abdominal x-ray showed overall nonobstructive bowel gas pattern. Modified barium swallow showed there was penetration and aspiration with thin barium. Transient penetration with nectar thick substances. Vallecular residuals were noted with solids 09/07: Patient evaluated at the bedside for follow-up. Patient had repeat chest x-ray that showed bilateral pulmonary nodules that are stable with persistent basilar and perihilar infiltrates, underlining interstitial pneumonitis cannot be excluded. Antibiotics have been changed Levaquin was changed to Zosyn for concern for aspiration pneumonia. Infectious disease has been consulted. Patient continues with aspiration precautions and nectar thick liquids with chin tuck. Laboratory value show WBCs increased to 20.4, hemoglobin 11.1, kidney function has worsened creatinine now 3.5, BUN 59. Nephrology is on consult. Will check a lipase tomorrow. 09/08: Patient evaluated this morning, resting in bed comfortably. Patient has complaints of some abdominal pain with nausea and increasing shortness of breath. Abdominal x-ray ordered and showed nonspecific abdomen with retained contrast throughout the colon, no significant interval change from the previous exam. With patient's increased shortness of breath and most recent abnormal swallow evaluation there is concern for possible aspiration pneumonia. Patient had an elevated white count as well, possibly due to aspiration pneumonitis or possibly oropharyngeal candidiasis. Infectious diseases consult appreciated, will obtain sputum for Gram stain and culture, CRP and prolactin level ordered, recommended to continue with Zosyn and discontinue Flagyl and add Diflucan. Oncology consult appreciated recommends once the patient is more stable will consider MRCP to rule out metastatic renal cell carcinoma to the pancreas 09/09: Patient continues to not have much appetite. Ensure added and Remeron also added. Pulse ox is low today running at 90% on room air and 89% on 3 L, VQ scan ordered. Patient has Guevara catheter in place with dark urine. IV fluids added at 100 mL per hour. He has been afebrile, heart rate 90, blood pressure 93/56.repeat blood work reveals WBC 23.9, hemoglobin 10.9, platelet count 320. Sodium 141, potassium 4.1, chloride 107, CO2 20, BUN 80 and creatinine 5.8. Calcium 8.0, total bilirubin 0.5, AST 47, ALT is 21, ALT 68. Albumin is 2.9. Pro-calcitonin came back at 0.93. Repeat coronavirus was ordered and came back not detected. Patient is followed by nephrology for acute kidney injury most likely acute tubular necrosis. Midodrine was added by nephrology. Patient is also followed by oncology and infectious disease. Sputum culture is uncorrected. REVIEW OF SYSTEMS Constitutional: No fever, no chills, no night sweats. No weight change. Reports weakness, reports fatigue no lethargy. No daytime sleepiness. EENT: No headache. No blurred vision or double vision, no loss of vision. No loss of Hearing, no ringing in the ears, no dizziness. No nasal drainage or congestion. No epistaxis. No sore throat. Lungs: Reports shortness of breath, cough, no sputum production. No wheezing. Cardiovascular: No chest pain, no lower extremity edema. No palpitations. No paroxysmal nocturnal dyspnea. No orthopnea. No lightheadedness or dizziness. No syncopal episodes. Abdominal: No abdominal pain. No nausea, vomiting. No diarrhea. No consti pation. No bloody or tarry stools. Reports loss of appetite. Genitourinary: No dysuria, increased frequency, urgency. No urinary retention. Musculoskeletal: No myalgias. Reports muscle weakness, no gait dysfunction, no frequent falls. No back pain. No neck pain. Integumentary: No wounds, no lesions. No rash or pruritus. No unusual bruising. No change in hair or nails. Neurologic: No aphasia. No facial droop. No change in mentation. No head injury. No headache. No paralysis. No paresthesia. Psychiatric: No depression. No anxiety. No mood swings. Endocrine: No abnormal blood sugars. PHYSICAL EXAMINATION Gen: This is an 89-year-old male. He is resting in bed appears to be comfortable at rest. HEENT: Head is atraumatic, normocephalic. Pupils equal, round. Sclerae is anicteric. NECK: Supple. No JVD. No lymphadenopathy. No thyromegaly. LUNGS: Bilateral rhonchi. No wheezing. No intercostal retractions. HEART: Regular rate and rhythm. No murmur. ABDOMEN: Soft. Bowel sounds are present. No masses. No tenderness. EXTREMITIES: No pedal edema. No calf tenderness. NEUROLOGICAL: Patient is awake, alert and oriented x3. Cranial nerves 2 through 12 are grossly intact. ASSESSMENT AND PLAN 1. Acute abdominal pain secondary to pancreatitis and colitis. Consults with Dr. Parham and Dr. Stewart appreciated. Diet to be advanced. Continue Ceftaroline, Flagyl. 2. Acute Pancreatitis unclear etiology. Oncology will consider an MRCP to rule out metastatic renal cell carcinoma to the pancreas, attempted MRI this stay, but was unable to complete the exam due to patient could not fit into MRI machine due to body habitus 3. Sepsis secondary to Acute diverticulitis with CAT scan positive for focal inflammatory process involving the right colon with pedunculated diverticuli in the right colon. Tumor markers negative for primary colon carcinoma. Surgery consult appreciated 4. Acute kidney injury. Nephrology consult appreciated 5. Metastatic renal cell carcinoma with liver lesions and lung lesion, stable. Consult with oncology appreciated. 6. 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 8. Metabolic acidosis secondary to acute kidney injury. 9. COPD not in exacerbation. Continue DuoNeb treatments 4 times daily as needed 10. Mild intermittent asthma, stable. 11. History of renal cell cancer status post right-sided nephrectomy. 12. History of metastatic renal cell cancer to the lungs . Patient had VATS and left upper lobe biopsies suggestive of clear cell carcinoma status post chemotherapy - pazotinib till feb 2015, discontinued due to fatigue 13. 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 14. Hypertension. Continue amlodipine 10 mg at bedtime. Hold losartan 15. Hypothyroidism. Continue levothyroxine 112 g daily. 16. Benign prostatic hypertrophy. Continue Flomax 0.4 mg daily. 17. Constipation no improvement with Dulcolax suppository. Dulcolax 5 mg by mouth daily, MiraLAX 17 g daily. S/p soapsuds enema. 18. Dysphasia. Modified barium swallow showed penetration and aspiration, recommended nectar thick liquids 19. Aspiration pneumonia. Continue Ceftaroline and Flagyl. ID consult appreciated. 20. Oropharyngeal candidiasis. 21. DVT prophylaxis. Lovenox. 22. GI prophylaxis and GERD. Continue pantoprazole 40 mg 23. COVID-19 testing negative. Patient has been hospitalized during a pandemic. CODE STATUS: No code DISCHARGE PLAN Home. Impression and plan of care have been directed as dictated by the signing physician. Ruthy Gonzalez nurse practitioner acting as scribe for signing physician. Objective - Vital Signs Vital signs: Vital Signs Temp 98.2 F 09/09/20 04:08 Pulse 90 09/09/20 07:30 Resp 18 09/09/20 07:30 BP 97/53 09/09/20 04:08 Pulse Ox 89 L 09/09/20 07:18 Intake & Output 09/08/20 09/09/20 09/09/20 18:59 06:59 18:59 Intake Total 750 1000 Output Total 525 750 Balance 225 250 Intake: Intake, IV Titration 750 1000 Amount Piperacillin-Tazobactam 3 100 .375 gm In Sodium Chloride 0.9% 100 ml @ 25 mls/hr IVPB Q12HR DENE[facility] Rx #:[id number] Sodium Chloride 0.9% 1, 750 900 000 ml @ 75 mls/hr IV . [id number] DENEEN Rx#:[id number] Output: Urine 525 750 Uretheral (Guevara) 525 Other: Voiding Method Indwelling Catheter - Labs CBC & Chem 7: 09/09/20 05:38 09/09/20 05:38 Labs: Abnormal Lab Results - Last 24 Hours (Table) 09/08/20 09/08/20 09/09/20 Range/Units 05:19 05:19 05:38 WBC 23.9 H (3.8-10.6) k/uL RBC 3.63 L (4.30-5.90) m/uL Hgb 10.9 L (13.0-17.5) gm/dL Hct 36.5 L (39.0-53.0) % MCV 100.5 H (80.0-100.0) fL MCHC 29.9 L (31.0-37.0) g/dL Neutrophils # 22.1 H (1.3-7.7) k/uL Lymphocytes # 0.9 L (1.0-4.8) k/uL BUN 71.0 H (9.0-27.0) mg/dL Creatinine 4.8 H (0.6-1.5) mg/dL Est GFR (CKD-EPI)AfAm 11.6 L (60.0-200.0) Est GFR (CKD-EPI)NonAf 10.0 L (60.0-200.0) Calcium 8.3 L (8.7-10.3) mg/dL C-Reactive Protein 27.8 H (0.0-0.8) mg/dL Total Protein 5.7 L (6.2-8.2) g/dL Albumin 3.20 L (3.80-4.90) g/dL Albumin/Globulin Ratio 1.28 L (1.60-3.17) g/dL Procalcitonin 0.93 H (0.02-0.09) ng/mL
--- NOTE | 2020-09-09 14:25 | P.PN ---
Subjective Progress Note Date: 09/09/20 CHIEF COMPLAINT: Abdominal pain HISTORY OF PRESENT ILLNESS: Surgical service following regards to patient's abdominal pain and colitis. Patient more short of breath today. Medicine service has ordered a VQ scan. Patient denies any abdominal pain. He is passing gas. It's been a couple of days since his last bowel movement. He only had small amount of stools on Wednesday . Afebrile. WBC is up to 23.9 creatinine is 5.8 and followed by nephrology. He is currently on IV fluids. Patient seen and examined with Dr. Antonio PHYSICAL EXAM: VITAL SIGNS: Reviewed. GENERAL: Well-developed in no acute distress. HEENT: No sclera icterus. Extraocular movements grossly intact. Moist buccal mucosa. Head is atraumatic, normocephalic. ABDOMEN: Soft. Distended nontender NEUROLOGIC: Alert and oriented. Cranial nerves II through XII grossly intact. ASSESSMENT: 1. Abdominal distention with intermittent abdominal pain likely secondary to colitis. Patient denies any abdominal pain at this time 2. Constipation 3. Acute pancreatitis resolved PLAN: -No surgical intervention planned -Continue supportive care Physician Nursing Care Partner note has been reviewed by physician. Signing provider agrees with the documented findings, assessment, and plan of care. Objective - Vital Signs Vital signs: Vital Signs Temp 97.6 F 09/09/20 11:21 Pulse 89 09/09/20 11:56 Resp 18 09/09/20 11:56 BP 93/56 09/09/20 11:21 Pulse Ox 89 L 09/09/20 11:21 Intake & Output 09/08/20 09/09/20 09/09/20 18:59 06:59 18:59 Intake Total 750 1000 Output Total 525 750 Balance 225 250 Intake: Intake, IV Titration 750 1000 Amount Piperacillin-Tazobactam 3 100 .375 gm In Sodium Chloride 0.9% 100 ml @ 25 mls/hr IVPB Q12HR [facility] Rx #:[id number] Sodium Chloride 0.9% 1, 750 900 000 ml @ 75 mls/hr IV . [id number] DENE[facility] Rx#:[id number] Output: Urine 525 750 Uretheral (Guevara) 525 Other: Voiding Method Indwelling Catheter Indwelling Catheter - Labs CBC & Chem 7: 09/09/20 05:38 09/09/20 05:38 Labs: Abnormal Lab Results - Last 24 Hours (Table) 09/09/20 09/09/20 Range/Units 05:38 05:38 WBC 23.9 H (3.8-10.6) k/uL RBC 3.63 L (4.30-5.90) m/uL Hgb 10.9 L (13.0-17.5) gm/dL Hct 36.5 L (39.0-53.0) % MCV 100.5 H (80.0-100.0) fL MCHC 29.9 L (31.0-37.0) g/dL Neutrophils # 22.1 H (1.3-7.7) k/uL Lymphocytes # 0.9 L (1.0-4.8) k/uL Carbon Dioxide 20.2 L (21.6-31.8) mmol/L Anion Gap 13.80 H (4.00-12.00) mmol/L BUN 80.0 H (9.0-27.0) mg/dL Creatinine 5.8 H (0.6-1.5) mg/dL Est GFR (CKD-EPI)AfAm 9.3 L (60.0-200.0) Est GFR (CKD-EPI)NonAf 8.0 L (60.0-200.0) Calcium 8.0 L (8.7-10.3) mg/dL AST 47 H (14-35) U/L Total Protein 5.4 L (6.2-8.2) g/dL Albumin 2.90 L (3.80-4.90) g/dL Albumin/Globulin Ratio 1.16 L (1.60-3.17) g/dL
[2020-09-09] MEDS: CEFTAROLINE FOSAMIL IVPB SCH ×2 (14:37→22:28)
[2020-09-09] MEDS: SODIUM CHLORIDE 0.9% IVPB SCH ×2 (14:37→22:28)
--- NOTE | 2020-09-09 15:36 | PN ---
PROGRESS NOTE Patient is seen for followup for acute kidney injury. His renal function continues to decline. Serum creatinine is up to 5.8 today. Patient is maintained on IV fluids. He has poor urine output. He has an indwelling Guevara catheter. Patient has been complaining of abdominal pain. He is scheduled for CT of the abdomen. He is currently n.p.o. No significant complaints of chest pains. PHYSICAL EXAMINATION: On examination today, blood pressure 93/56, heart rate 91 per minute. He is afebrile. EXAMINATION OF THE HEART: S1 and S2. EXAMINATION OF LUNGS: Bilateral breath sounds are heard. Upper airway sounds with coarse crackles heard. ABDOMEN: Soft, distended. Mild tenderness noted. Examination of lower extremities shows edema 1+ bilaterally. PRE SALES TECHNICAL CONSULTANT exam shows patient is moving all 4 extremities. LABS: Sodium 141, potassium 5.1, chloride 107, BUN 80, serum creatinine 5.8. Glucose is 90. ASSESSMENT: 1. Acute kidney injury, acute tubular necrosis, with progressive renal failure. Patient's urine output is on the lower side. He has a Guevara catheter which we will flush. Patient will have CT of the abdomen today as well. There are no nephrotoxic agents on board and at this time patient is not a candidate for renal replacement therapy if his renal function continues to worsen. 2. Pancreatitis with suspicion for underlying pancreatic carcinoma. 3. Metastatic renal cell cancer with lesions in the liver and lung which have been stable. 4. Diverticulitis. 5. Remote history of laryngeal cancer. PLAN: Continue with increased fluids. Flush Guevara catheter. Continue with midodrine; increase to 10 mg t.i.d., as blood pressure remains low and patient is not an ideal candidate for dialysis. If his renal function does not improve, we will need to discuss this with the family. MMODL / IJN: [id number] /
[2020-09-09] MEDS: MIRTAZAPINE 15 MG TAB PO SCH (16:55)
[2020-09-09] MEDS: metroNIDAZOLE-NS PMX 500 MG in SALINE 1 100ML.BAG IVPB SCH ×2 (16:55→23:58)
--- NOTE | 2020-09-09 17:12 | NM ---
EXAMINATION TYPE: NM pul perfusion DATE OF EXAM: 09/09/2020 COMPARISON: Chest x-ray 09/07/2020, prior nuclear medicine ventilation/perfusion scan 04/02/2020 HISTORY: Hypoxia, cough Following administration of 4.8 mCi Tc 99m MAA. Images obtained post injection. FINDINGS: Relatively homogenous radio pharmaceutical uptake noted on perfusion imaging only. IMPRESSION: No chest x-ray within 24 hours. No sizable perfusion abnormality.
[2020-09-09] MEDS: MELATONIN 5 MG TABLET PO SCH (22:24)
--- NOTE | 2020-09-09 23:22 | PN ---
PROGRESS NOTE DATE OF SERVICE: 09/09/2020 REASON FOR FOLLOWUP: Pneumonia. INTERVAL HISTORY: The patient was seen on rounds this morning. The patient has been afebrile. Still complaining of shortness of breath. He did have a congested cough, not bringing up any sputum. No vomiting or diarrhea has been reported. PHYSICAL EXAMINATION: Blood pressure 113/64, pulse of 89, temperature 99.1. He is 90% on 5 L nasal cannula. General description is an elderly male lying in bed in no distress. Respiratory system: Unlabored breathing, coarse breath sounds bilaterally. No wheeze. Heart S1, S2. Regular rate and rhythm. Abdomen soft, no tenderness. LABS: Hemoglobin is 10.1, white count 23.1, BUN 80, creatinine 5.8. DIAGNOSTIC IMPRESSION AND PLAN: Patient with worsening shortness of breath and cough with worsening of the white count, concern for recurrent aspiration pneumonia. Wound culture possible gram-positive. As the patient did not respond to the Zosyn and Diflucan, we are not able to use vancomycin because of his kidney function and Zyvox is contraindicated because of Remeron patient is on. Antibiotic will be adjusted to Teflaro with addition of Flagyl and close aspiration precautions. Prognosis remains to be guarded. Continue supportive care. MMODL / IJN: [id number] /
[2020-09-10] MEDS: SODIUM CHLORIDE 0.9% 1,000 ML IV SCH ×2 (05:53→15:13)
[2020-09-10] MEDS: LEVOTHYROXINE 112 MCG TAB PO SCH (05:53)
[2020-09-10] MEDS: SYMBICORT 160-4.5 MCG INHALER INHALATION SCH ×2 (07:17→19:24)
[2020-09-10] MEDS: IPRATROPIUM-ALBUTEROL 3 ML NEB INHALATION SCH ×4 (07:17→19:24)
[2020-09-10] MEDS: bisacodyL 5 MG TABLET.DR PO SCH (08:30)
[2020-09-10] MEDS: TAMSULOSIN 0.4 MG CAP.ER.24H PO SCH (08:30)
[2020-09-10] MEDS: BENZONATATE 100 MG CAP PO SCH ×3 (08:30→20:33)
[2020-09-10] MEDS: MIDODRINE 5 MG TAB PO SCH ×3 (08:31→18:09)
[2020-09-10] MEDS: ENOXAPARIN 30 MG/0.3 ML SYRINGE SQ SCH (08:31)
[2020-09-10] MEDS: guaiFENesin 600 MG TABLET.ER PO SCH ×2 (08:31→20:30)
[2020-09-10] MEDS: polyethylene glycoL 3350 17 GM POWD.PACK PO SCH (08:31)
[2020-09-10] MEDS: SODIUM CHLORIDE 0.9% IVPB SCH ×2 (08:31→20:30)
[2020-09-10] MEDS: PANTOPRAZOLE 40 MG TABLET PO SCH (08:31)
[2020-09-10] MEDS: CEFTAROLINE FOSAMIL IVPB SCH ×2 (08:31→20:30)
[2020-09-10] MEDS: MONTELUKAST 10 MG TAB PO SCH (08:31)
[2020-09-10] MEDS: traMADol 50 MG TAB PO SCH (08:32)
[2020-09-10] MEDS: FLUTICASONE 50MCG/SPRAY NASAL 16GM EA NOSTRIL SCH ×2 (08:41→20:30)
[2020-09-10 09:23] LABS: HCT 35.9 % (39.0-53.0); HGB 11.5 gm/dL (13.0-17.5); Hypochromasia Moderate; MCH 31.9 pg (25.0-35.0); MCV 99.8 fL (80.0-100.0); Mean Platelet Volume 7.4; Platelet Count 315 k/uL (150-450); RDW 13.6 % (11.5-15.5); WBC 25.5 k/uL (3.8-10.6)
[2020-09-10 09:44] LABS: African American GFR (CKD) 7 (>60 ml/min/1.73 sqM); Anion Gap 17 mmol/L; Blood Urea Nitrogen 88 mg/dL (9-20); Calcium 8.4 mg/dL (8.4-10.2); Carbon Dioxide 13 mmol/L (22-30); Chloride 110 mmol/L (98-107); Glucose 93 mg/dL (74-99); Non-African American GFR(CKD) 6 (>60 ml/min/1.73 sqM); Potassium 4.7 mmol/L (3.5-5.1); Sodium 140 mmol/L (137-145)
[2020-09-10] MEDS: metroNIDAZOLE-NS PMX 500 MG in SALINE 1 100ML.BAG IVPB SCH ×3 (10:03→23:51)
--- NOTE | 2020-09-10 12:56 | PN ---
PROGRESS NOTE Patient is seen for followup for acute kidney injury. His renal function has deteriorated. Family is present at bedside. Creatinine is up to 7.2, and I have discussed with the family that he is not a candidate for dialysis. At this time they are looking into hospice care. They agree and state that he would not have wanted any kind of renal replacement therapy. PHYSICAL EXAMINATION: On examination today, vital signs are reviewed. Blood pressure was 130/70, heart rate 94 per minute. Patient is somnolent. He has edema of lower extremities. Rest of the exam is not performed. LABS: Labs show sodium 140, potassium 4.7, chloride 110, CO2 is 13, BUN 88, creatinine 7.2, hemoglobin 11.5 g/dL. ASSESSMENT: 1. Acute kidney injury with progressive renal failure, mostly acute tubular necrosis. Not a candidate for dialysis. Discussed with family. At this time they would not want to proceed with any renal replacement therapy and are considering hospice care. 2. Metabolic acidosis associated with progressive renal failure. 3. Metastatic renal cell cancer with stable lesions in the liver and lung. 4. Diverticulitis. 5. Pancreatitis. PLAN: Proceed with hospice care options. No plans for dialysis. MMODL / IJN: [id number] /
[2020-09-10 13:46] VITALS: BMI 34.3
--- NOTE | 2020-09-10 14:29 | P.PN ---
Subjective Progress Note Date: 09/10/20 HISTORY OF PRESENT ILLNESS 89-year-old male with past medical history of renal cell carcinoma originally diagnosed in 1993 followed by a right nephrectomy. Patient followed Dr. Warner for his care. He did have a lung nodule and since 0 and multiple lung nodules for which patient had a PET scan in November 2011 with no significant uptake. On 2011 patient had a VAC and the left upper lobe wedge resection biopsy which revealed a metastatic clear cell carcinoma. 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 Patient had multiple imaging including a brain MRI bone scan in December 2011 which were negative for metastasis. He did have a CAT scan of the chest in 01/07/2012 with slight improvement in his lung nodules. He received oral pazotinib for 3 years which was discontinued in February 2015 due to fatigue. Patient was last admitted in March/2024 for possible COPD exacerbation and chest wall pain. Patient comes in today with severe epigastric abdominal and distention that started 3 in the morning yesterday. Patient also documents increased cough with sputum production but denies any shortness of breath. He denies any difficulty swallowing or unintentional weight loss but does have loss of appetite. Patient denies any change in bowel habits, no diarrhea or black stools. Last colonoscopy was 2013. The sigmoid diverticulosis but no polyps or neoplasm. On evaluation in the ER patient was afebrile pulse 85 respiratory rate 18 blood pressure 120/75. He was noted to have pancreatitis. And was admitted for IV hydration and kept nothing by mouth. Labs are reviewed patient with leukocytosis of 22,000, hemoglobin 14.9 hematocrit 44 platelet 238 sodium 135 potassium 4.9 chloride 104 bicarb 23 BUN 32 creatinine 1.84 glucose of 129, mildly as of 1900 and lipase 13,000 857. UA was positive for 100 WBCs last leukocyte esterase and RBCs. 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 Influenza and COVID-19 virus was negative. gallbladder ultrasound was negative for gallstones or dilation CBD. GI consulted and oncology consulted for new lesions. CT abdomen suggested abnormal loop of bowel in the mid abdomen suggestive of focal inflammation process or ischemia. Large fluid-filled diverticular of the right colon without evidence of inflammation. No free intraperitoneal air or fluid noted and surgical absence of right kidney. Multiple pulmonary and liver masses suspected of metastatic disease. Start patient on Zosyn 3.375 every 8 hours per for UTI and diverticulitis. IR consult for possible liver biopsy 09/03 patient examined bedside. Continues to complain of abdominal distention with no bowel movement since Wednesday. Abdominal x-ray revealed yesterday had nonspecific bowelsigns of obstruction noted. Patient's vitals evaluated patient had a fever of 98 pulse 96 respiratory rate 22 blood pressure 119/67 oxygen saturation 92% on 2 L. Labs are reviewed patient's hemoglobin is 14.1 WBC was elevated at 26 platelet 214 ESR is elevated CRP is 19 lipase has improved to 182 CMP reviewed patient's sodium is 137 potassium 4.9 chloride 105 BUN 35 creati nine 1.94 chest x-ray revealed suggest basilar infiltrate concerning for mild CHF. Venous Doppler were obtained yesterday are negative for bilateral DVTs does have popliteal cyst on the left. Analytical Engineer's notes were reviewed. GI recommends advancing to clear liquid diet. Tumor markers including AFP, CEA, CA 19/9 antigen is negative triglycerides pending. No plan for endoscopy evaluation in the setting of pancreatitis and possible ileus. Case discussed with oncology, liver lesions appears to be chronic. Liver biopsy is not indicated at this moment. Pancreatitis could be a result of pancreatic lesions from renal cell carcinoma. We'll evaluate with an MRI without contrast as patient cannot receive contrast due to her current kidney functions. Continue Zosyn for possible diverticulitis. Dulcolax suppository given yesterday with no improvement of patient's constipation. Fleet enema ordered for today. Surgery consulted for possible ischemic bowel though lactic acid is normal. ProBNP is normal unlikely to have CHF at this moment. Repeat chest x-ray tomorrow we will discontinue IV fluids due to concern for volume overload 09/04: Patient evaluated at the bedside. Patient was scheduled for MRI and MRCP today, was not completed due to patient was unable to fit into the [facility] scanner. Labs reviewed today, WBC 22.4 hemoglobin 12.1. He has been tolerating a full liquid diet, will advance to pured diet. Vital signs have been stable he's afebrile temperatures 98.8, heart rate 99, respiratory 16, blood pressure 132/74, O2 saturation of 94% on 2 L via nasal cannula 09/05: Patient examined at the bedside. He continues to have complaints of cough with congestion. Chest x-ray shows multiple scattered pulmonary nodules, patchy basilar densities that are improving. Patient was given a dose of IV Lasix. Patient's abdominal distention and pain is much better today. Still has complaints of difficulty swallowing and unable to swallow pills, consult placed to speech therapy, recommended modified barium swallow, which has been ordered. Pressure has been running a little on the lower side, amlodipine was decreased to 5 mg daily. Laboratory evaluation WBC 18.4, hemoglobin 11.5, sodium 135, BUN 40, creatinine 3.2. Kidney function is worse, Zosyn has been discontinued and changed to Levaquin and Flagyl, nephrology consult placed 09/06: Patient evaluated today, has complaints of bilateral lower extremity pain, morphine changed to 2 mg IV push along with tramadol as needed. He also had upper extremity swelling around the site of the IV, IV was discontinued most likely secondary to infiltration, no signs of cellulitis. Patient has not had a bowel movement in several days, soapsud enema ordered. Kidney function has worsened from 2.9 yesterday to 3.2, BUN 48, sodium 135, potassium 4.6, WBC 18, hemoglobin 11.3. Nephrology on consult, IV diuretics on hold as well as amlodipine, renal ultrasound and bladder scans ordered. Kidney ultrasound showed multiple left-sided renal cysts, right kidney is surgically absent. Abdominal x-ray showed overall nonobstructive bowel gas pattern. Modified barium swallow showed there was penetration and aspiration with thin barium. Transient penetration with nectar thick substances. Vallecular residuals were noted with solids 09/07: Patient evaluated at the bedside for follow-up. Patient had repeat chest x-ray that showed bilateral pulmonary nodules that are stable with persistent basilar and perihilar infiltrates, underlining interstitial pneumonitis cannot be excluded. Antibiotics have been changed Levaquin was changed to Zosyn for concern for aspiration pneumonia. Infectious disease has been consulted. Patient continues with aspiration precautions and nectar thick liquids with chin tuck. Laboratory value show WBCs increased to 20.4, hemoglobin 11.1, kidney function has worsened creatinine now 3.5, BUN 59. Nephrology is on consult. Will check a lipase tomorrow. 09/08: Patient evaluated this morning, resting in bed comfortably. Patient has complaints of some abdominal pain with nausea and increasing shortness of breath. Abdominal x-ray ordered and showed nonspecific abdomen with retained contrast throughout the colon, no significant interval change from the previous exam. With patient's increased shortness of breath and most recent abnormal swallow evaluation there is concern for possible aspiration pneumonia. Patient had an elevated white count as well, possibly due to aspiration pneumonitis or possibly oropharyngeal candidiasis. Infectious diseases consult appreciated, will obtain sputum for Gram stain and culture, CRP and prolactin level ordered, recommended to continue with Zosyn and discontinue Flagyl and add Diflucan. Oncology consult appreciated recommends once the patient is more stable will consider MRCP to rule out metastatic renal cell carcinoma to the pancreas 09/09: Patient continues to not have much appetite. Ensure added and Remeron also added. Pulse ox is low today running at 90% on room air and 89% on 3 L, VQ scan ordered. Patient has Guevara catheter in place with dark urine. IV fluids added at 100 mL per hour. He has been afebrile, heart rate 90, blood pressure 93/56.repeat blood work reveals WBC 23.9, hemoglobin 10.9, platelet count 320. Sodium 141, potassium 4.1, chloride 107, CO2 20, BUN 80 and creatinine 5.8. Calcium 8.0, total bilirubin 0.5, AST 47, ALT is 21, ALT 68. Albumin is 2.9. Pro-calcitonin came back at 0.93. Repeat coronavirus was ordered and came back not detected. Patient is followed by nephrology for acute kidney injury most likely acute tubular necrosis. Midodrine was added by nephrology. Patient is also followed by oncology and infectious disease. Sputum culture is uncorrected. 09/10: Patient is doing poorly today. He has a pill stuck in his throat. He states he has no appetite. Patient has not been eating or drinking very much. Renal function is worsening with BUN of 88 and creatinine 7.2. WBC 25.5, hemoglobin 11.5. CO2 is 13. Speech therapy has recommended a mechanical soft nectar thick liquids which will be started. Marinol was started today. Patient is known to be edematous to all extremities. Patient's family, and daughter, came to the bedside, discussed prognosis and plan with them. At this point, they would prefer patient be made comfort care and interested in hospice. They have had a family member at the hospice home in the past. Hospice meeting to occur later today and possible discharge tomorrow. REVIEW OF SYSTEMS Constitutional: No fever, no chills, no night sweats. No weight change. Reports weakness, reports fatigue no lethargy. No daytime sleepiness. EENT: No headache. No blurred vision or double vision, no loss of vision. No loss of Hearing, no ringing in the ears, no dizziness. No nasal drainage or congestion. No epistaxis. No sore throat. Lungs: Reports shortness of breath, cough, no sputum production. No wheezing. Cardiovascular: No chest pain, no lower extremity edema. No palpitations. No paroxysmal nocturnal dyspnea. No orthopnea. No lightheadedness or dizziness. No syncopal episodes. Abdominal: No abdominal pain. No nausea, vomiting. No diarrhea. No constipation. No bloody or tarry stools. Reports loss of appetite. Genitourinary: No dysuria, increased frequency, urgency. No urinary retention. Musculoskeletal: No myalgias. Reports muscle weakness, no gait dysfunction, no frequent falls. No back pain. No neck pain. Integumentary: No wounds, no lesions. No rash or pruritus. No unusual bruising. No change in hair or nails. Neurologic: No aphasia. No facial droop. No change in mentation. No head injury. No headache. No paralysis. No paresthesia. Psychiatric: No depression. No anxiety. No mood swings. Endocrine: No abnormal blood sugars. PHYSICAL EXAMINATION Gen: This is an 89-year-old male. He is resting in bed appears to be comfortable at rest. HEENT: Head is atraumatic, normocephalic. Pupils equal, round. Sclerae is anicteric. NECK: Supple. No JVD. No lymphadenopathy. No thyromegaly. LUNGS: Bilateral rhonchi. No wheezing. No intercostal retractions. HEART: Regular rate and rhythm. No murmur. ABDOMEN: Soft. Bowel sounds are present. No masses. No tenderness. Guevara catheter with scant amount of dark urine output. EXTREMITIES: No pedal edema. No calf tenderness. NEUROLOGICAL: Patient is awake, alert and oriented x3. Cranial nerves 2 through 12 are grossly intact. Speech is slow and difficult to understand. Generalized weakness noted. ASSESSMENT AND PLAN 1. Acute abdominal pain secondary to pancreatitis and colitis. Consults with Dr. Parham and Dr. Stewart appreciated. Diet to be advanced. Continue Ceftaroline, Flagyl. 2. Acute Pancreatitis unclear etiology. Oncology will consider an MRCP to rule out metastatic renal cell carcinoma to the pancreas, attempted MRI this stay, but was unable to complete the exam due to patient could not fit into MRI [facility] due to body habitus 3. Sepsis secondary to Acute diverticulitis with CAT scan positive for focal inflammatory process involving the right colon with pedunculated diverticuli in the right colon. Tumor markers negative for primary colon carcinoma. Surgery consult appreciated 4. Acute kidney injury. Nephrology consult appreciated 5. Metastatic renal cell carcinoma with liver lesions and lung lesion, stable. Consult with oncology appreciated. 6. 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 8. Metabolic acidosis secondary to acute kidney injury. 9. COPD not in exacerbation. Continue DuoNeb treatments 4 times daily as needed 10. Mild intermittent asthma, stable. 11. History of renal cell cancer status post right-sided nephrectomy. 12. History of metastatic renal cell cancer to the lungs . Patient had VATS and left upper lobe biopsies suggestive of clear cell carcinoma status post chemotherapy - pazotinib till feb 2015, discontinued due to fatigue 13. 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 14. Hypertension. Continue amlodipine 10 mg at bedtime. Hold losartan 15. Hypothyroidism. Continue levothyroxine 112 g daily. 16. Benign prostatic hypertrophy. Continue Flomax 0.4 mg daily. 17. Constipation no improvement with Dulcolax suppository. Dulcolax 5 mg by mouth daily, MiraLAX 17 g daily. S/p soapsuds enema. 18. Dysphasia. Modified barium swallow showed penetration and aspiration, recommended nectar thick liquids 19. Aspiration pneumonia. Continue Ceftaroline and Flagyl. ID consult appreciated. 20. Oropharyngeal candidiasis. 21. DVT prophylaxis. Lovenox. 22. GI prophylaxis and GERD. Continue pantoprazole 40 mg 23. COVID-19 testing negative. Patient has been hospitalized during a pandemic. CODE STATUS: No code DISCHARGE PLAN Family to have meeting with hospice. Family would like [facility]. Impression and plan of care have been directed as dictated by the signing physician. Ruthy Gonzalez nurse practitioner acting as scribe for signing physician. Objective - Vital Signs Vital signs: Vital Signs Temp 97.4 F L 09/10/20 04:40 Pulse 92 05/18/21 07:29 Resp 18 09/10/20 07:29 BP 130/70 09/10/20 04:40 Pulse Ox 90 L 09/10/20 07:17 Intake & Output 09/09/20 09/10/20 09/10/20 18:59 06:59 18:59 Intake Total 950 1000 Output Total 125 Balance 950 875 Intake: Intake, IV Titration 950 1000 Amount Ceftaroline Fosamil 200 50 100 mg In Sodium Chloride 0.9 % 50 ml @ 100 mls/hr IVPB BID DENEEN Rx#:[id number] Sodium Chloride 0.9% 1, 800 800 000 ml @ 100 mls/hr IV . Q10H DENEEN Rx#:[id number] metroNIDAZOLE-NS PMX 500 100 100 mg In Saline 1 100ml.bag @ 100 mls/hr IVPB Q8HR DENEEN Rx#:[id number] Output: Urine 125 Other: Voiding Method Indwelling Catheter Indwelling Catheter - Labs CBC & Chem 7: 09/10/20 09:00 09/10/20 09:00 Labs: Abnormal Lab Results - Last 24 Hours (Table) 09/09/20 Range/Units 05:38 Carbon Dioxide 20.2 L (21.6-31.8) mmol/L Anion Gap 13.80 H (4.00-12.00) mmol/L BUN 80.0 H (9.0-27.0) mg/dL Creatinine 5.8 H (0.6-1.5) mg/dL Est GFR (CKD-EPI)AfAm 9.3 L (60.0-200.0) Est GFR (CKD-EPI)NonAf 8.0 L (60.0-200.0) Calcium 8.0 L (8.7-10.3) mg/dL AST 47 H (14-35) U/L Total Protein 5.4 L (6.2-8.2) g/dL Albumin 2.90 L (3.80-4.90) g/dL Albumin/Globulin Ratio 1.16 L (1.60-3.17) g/dL
--- NOTE | 2020-09-10 14:32 | P.PN ---
Subjective Progress Note Date: 09/10/20 Principal diagnosis: Metastatic Renal Cell Overall status is declining, he is not taking in oral food or water, feels there is pill stuck, creatinine is worsening. Objective - Vital Signs Vital signs: Vital Signs Temp 98.2 F 09/10/20 11:49 Pulse 98 09/10/20 11:49 Resp 14 09/10/20 11:49 BP 95/60 09/10/20 11:49 Pulse Ox 86 L 09/10/20 11:49 Intake & Output 09/09/20 09/10/20 09/10/20 18:59 06:59 18:59 Intake Total 950 1000 Output Total 125 Balance 950 875 Weight 107 kg Intake: Intake, IV Titration 950 1000 Amount Ceftaroline Fosamil 200 50 100 mg In Sodium Chloride 0.9 % 50 ml @ 100 mls/hr IVPB BID DENEEN Rx#:[id number] Sodium Chloride 0.9% 1, 800 800 000 ml @ 100 mls/hr IV . Q10H DENEEN Rx#:[id number] metroNIDAZOLE-NS PMX 500 100 100 mg In Saline 1 100ml.bag @ 100 mls/hr IVPB Q8HR DENEEN Rx#:[id number] Output: Urine 125 Other: Voiding Method Indwelling Catheter Indwelling Catheter Indwelling Catheter - Exam - Constitutional General appearance: Present: cooperative, no acute distress, obese - EENT Eyes: Present: anicteric sclerae, EOMI ENT: Present: hearing grossly normal, normal oropharynx - Respiratory Respiratory: bilateral: CTA - Cardiovascular Rhythm: regular Heart sounds: normal: S1, S2 Abnormal Heart Sounds: Absent: systolic murmur, diastolic murmur, rub, S3 Gallop, S4 Gallop, click, other - Peripheral edema leg Peripheral Edema: bilateral: Trace - Gastrointestinal General gastrointestinal: Present: decreased bowel sounds, distended, soft Localized gastrointestinal: tender: RUQ, RLQ - Neurologic Neurologic: Present: CNII-XII intact - Musculoskeletal Musculoskeletal: Present: generalized weakness - Psychiatric Psychiatric: Present: A&O x's 3, appropriate affect, intact judgment & insight - Labs CBC & Chem 7: 09/10/20 09:00 09/10/20 09:00 Labs: Abnormal Lab Results - Last 24 Hours (Table) 09/10/20 09/10/20 Range/Units 09:00 09:00 WBC 25.5 H (3.8-10.6) k/uL RBC 3.60 L (4.30-5.90) m/uL Hgb 11.5 L (13.0-17.5) gm/dL Hct 35.9 L (39.0-53.0) % Chloride 110 H (98-107) mmol/L Carbon Dioxide 13 L (22-30) mmol/L BUN 88 H (9-20) mg/dL Creatinine 7.20 H* (0.66-1.25) mg/dL Assessment and Plan Plan: Assessment and Plan (1) Pancreatitis Narrative/Plan: Clear liquids started, pancreatic enzymes significantly improved. Mgmt per Internal Medicine. MRI unable to be performed, cannot fit into machine. Plan for MRI outpt Current Visit: Yes Status: Acute Priority: High Code(s): K85.90 - ACUTE PANCREATITIS WITHOUT NECROSIS OR INFECTION, UNSP SNOMED Code(s): 99881239 (2) Liver metastasis Current Visit: Yes Status: Chronic Priority: Low Code(s): C78.7 - SECONDARY MALIG NEOPLASM OF LIVER AND INTRAHEPATIC BILE DUCT SNOMED Code(s): 62149159 (3) Lung metastasis Current Visit: Yes Status: Acute Priority: Medium Code(s): C78.00 - SECONDARY MALIGNANT NEOPLASM OF UNSPECIFIED LUNG SNOMED Code(s): 35126540 (4) Renal cell adenocarcinoma Current Visit: Yes Status: Chronic Priority: Medium Code(s): C64.9 - MALIGNANT NEOPLASM OF UNSP KIDNEY, EXCEPT RENAL PELVIS SNOMED Code(s): 053987026 (5) Carcinoma in situ of larynx Narrative/Plan: - . Speech Therapist recs reviewed, pt doing nectar thick liquids, no straws. GI following - He is not taking anything orally Current Visit: No Status: Chronic Priority: Low Code(s): D02.0 - CARCINOMA IN SITU OF LARYNX SNOMED Code(s): 37486962 Plan: Overall he is further declining, plan is to meet with hospice care, which is appropriate
--- NOTE | 2020-09-10 14:58 | P.PN ---
Subjective Progress Note Date: 09/10/20 CHIEF COMPLAINT: Abdominal pain HISTORY OF PRESENT ILLNESS: Surgical service following regards to patient's abdominal pain and colitis. Patient is complaining of right abdominal pain. There is concerns of a possible aspiration pneumonia. He is requiring 5 L of oxygen. Family is at bedside. They are thinking about proceeding with comfort care and hospice. There is to meet with hospice later today. Afebrile. WBC is up at 25.5 creatinine is up to 7.20 Patient seen and examined with Dr. Antonio PHYSICAL EXAM: VITAL SIGNS: Reviewed. GENERAL: Well-developed in no acute distress. HEENT: No sclera icterus. Extraocular movements grossly intact. Moist buccal mucosa. Head is atraumatic, normocephalic. ABDOMEN: Soft. Distended nontender NEUROLOGIC: Alert and oriented. Cranial nerves II through XII grossly intact. ASSESSMENT: 1. Abdominal distention with intermittent abdominal pain likely secondary to colitis. 2. Constipation 3. Acute pancreatitis resolved PLAN: -No surgical intervention planned -Continue supportive care -Patient's family would like to proceed with comfort care and hospice meeting with hospice later today. -They did not want any further testing completed for patient's abdominal pain. Physician [employer] note has been reviewed by physician. Signing provider agrees with the documented findings, assessment, and plan of care. Objective - Vital Signs Vital signs: Vital Signs Temp 98.2 F 09/10/20 11:49 Pulse 98 09/10/20 11:49 Resp 14 09/10/20 11:49 BP 95/60 09/10/20 11:49 Pulse Ox 86 L 09/10/20 11:49 Intake & Output 09/09/20 09/10/20 09/10/20 18:59 06:59 18:59 Intake Total 950 1000 Output Total 125 Balance 950 875 Weight 107 kg Intake: Intake, IV Titration 950 1000 Amount Ceftaroline Fosamil 200 50 100 mg In Sodium Chloride 0.9 % 50 ml @ 100 mls/hr IVPB BID DENEEN Rx#:[id number] Sodium Chloride 0.9% 1, 800 800 000 ml @ 100 mls/hr IV . Q10H DENEEN Rx#:[id number] metroNIDAZOLE-NS PMX 500 100 100 mg In Saline 1 100ml.bag @ 100 mls/hr IVPB Q8HR DENEEN Rx#:[id number] Output: Urine 125 Other: Voiding Method Indwelling Catheter Indwelling Catheter Indwelling Catheter - Labs CBC & Chem 7: 09/10/20 09:00 09/10/20 09:00 Labs: Abnormal Lab Results - Last 24 Hours (Table) 09/10/20 09/10/20 Range/Units 09:00 09:00 WBC 25.5 H (3.8-10.6) k/uL RBC 3.60 L (4.30-5.90) m/uL Hgb 11.5 L (13.0-17.5) gm/dL Hct 35.9 L (39.0-53.0) % Chloride 110 H (98-107) mmol/L Carbon Dioxide 13 L (22-30) mmol/L BUN 88 H (9-20) mg/dL Creatinine 7.20 H* (0.66-1.25) mg/dL
--- NOTE | 2020-09-10 15:07 | PN ---
PROGRESS NOTE DATE OF SERVICE: 09/10/2020. REASON FOR FOLLOWUP: Leukocytosis and pneumonia. INTERVAL HISTORY: The patient is currently afebrile. Patient is lethargic though arousable. Patient denies having any chest pain. He still has a cough, not bringing up any sputum. No vomiting. No abdominal pain or any diarrhea. PHYSICAL EXAMINATION: Blood pressure 95/60 with a pulse of 98, temperature 98.2. He is 86% on 5 L nasal cannula. General description is an elderly male lying in bed in no distress. RESPIRATORY SYSTEM: Unlabored breathing. Coarse breath sounds bilaterally. HEART: S1, S2. Regular rate and rhythm. ABDOMEN: Soft, no tenderness. LABS: Hemoglobin 11.5, white count 25.5, BUN of 88, creatinine 7.20. DIAGNOSTIC IMPRESSION AND PLAN: Patient with elevated white count, multifactorial in this patient who did have worsening of his kidney function and possible hemoconcentration / pneumonia. Patient been treated with multiple antibiotic therapy and white count has not shown a good response with worsening of his kidney function and the family refused dialysis hospice care may be best for him. The patient is currently covered with Teflaro and Flagyl to continue which can be discontinued once the patient switched to hospice. MMODL / IJN: [id number] / [email or web address]
[2020-09-10] MEDS: SCOPOLAMINE 1.5MG/72HR PATCH TRANSDERM SCH (15:46)
[2020-09-10] MEDS ORDERED: ALPRAZolam 0.25 MG TAB PO PRN (17:05)
[2020-09-10] MEDS: MIRTAZAPINE 15 MG TAB PO SCH (18:09)
[2020-09-10] MEDS ORDERED: FUROSEMIDE 10 MG/ML 10 ML VIAL IV STA (19:51)
[2020-09-10] MEDS: MELATONIN 5 MG TABLET PO SCH (20:30)
[2020-09-11 03:56] VITALS: BP 126/82
[2020-09-11] MEDS: IPRATROPIUM-ALBUTEROL 3 ML NEB INHALATION SCH ×3 (07:23→16:02)
[2020-09-11] MEDS: SYMBICORT 160-4.5 MCG INHALER INHALATION SCH (07:23)
[2020-09-11] MEDS: BENZONATATE 100 MG CAP PO SCH ×2 (07:33→15:16)
[2020-09-11] MEDS: MIDODRINE 5 MG TAB PO SCH ×3 (07:33→15:43)
[2020-09-11] MEDS: LEVOTHYROXINE 112 MCG TAB PO SCH (07:34)
[2020-09-11] MEDS: bisacodyL 5 MG TABLET.DR PO SCH (07:34)
[2020-09-11] MEDS: guaiFENesin 600 MG TABLET.ER PO SCH (07:34)
[2020-09-11] MEDS: PANTOPRAZOLE 40 MG TABLET PO SCH (07:34)
[2020-09-11] MEDS: traMADol 50 MG TAB PO SCH (07:34)
[2020-09-11] MEDS: ENOXAPARIN 30 MG/0.3 ML SYRINGE SQ SCH (07:35)
[2020-09-11] MEDS: polyethylene glycoL 3350 17 GM POWD.PACK PO SCH (07:35)
[2020-09-11] MEDS: FLUTICASONE 50MCG/SPRAY NASAL 16GM EA NOSTRIL SCH (07:35)
[2020-09-11] MEDS: metroNIDAZOLE-NS PMX 500 MG in SALINE 1 100ML.BAG IVPB SCH ×2 (07:42→16:17)
[2020-09-11 08:17] VITALS: TEMP 97.6
[2020-09-11] MEDS: CEFTAROLINE FOSAMIL IVPB SCH (10:21)
[2020-09-11] MEDS: SODIUM CHLORIDE 0.9% IVPB SCH (10:21)
--- NOTE | 2020-09-11 11:27 | P.DS ---
Providers Date of admission: 09/01/20 16:26 Expected date of discharge: 09/11/20 Attending physician: Caleb Sanchez Consults: 09/02/20 10:57 Consult Physician Routine Consulting Provider: Sammy Sharif Consult Reason/Comments: liver, renal metastasis Do you want consulting provider notified?: Yes 09/02/20 16:55 Consult Physician Routine Consulting Provider: Syd Madrigal Consult Reason/Comments: liver biopsy Do you want consulting provider notified?: Yes 09/03/20 11:11 Consult Physician Routine Consulting Provider: Dayo Antonio Consult Reason/Comments: abnormal CT scan , r/o ischemia Do you want consulting provider notified?: Yes 09/05/20 13:03 Consult Physician Routine Consulting Provider: Fam Isabel Consult Reason/Comments: elevated BUN and Creatinine Do you want consulting provider notified?: Yes 09/07/20 08:50 Consult Physician Routine Consulting Provider: Lois Stewart Consult Reason/Comments: aspiration pneumonia Do you want consulting provider notified?: Yes Primary care physician: Chriss [facility] Course: HISTORY OF PRESENT ILLNESS 89-year-old male with past medical history of renal cell carcinoma originally diagnosed in 1993 followed by a right nephrectomy. Patient followed Dr. Warner for his care. He did have a lung nodule and since 0 and multiple lung nodules for which patient had a PET scan in November 2011 with no significant uptake. On 2011 patient had a VAC and the left upper lobe wedge resection biopsy which revealed a metastatic clear cell carcinoma. 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 Patient had multiple imaging including a brain MRI bone scan in December 2011 which were negative for metastasis. He did have a CAT scan of the chest in 01/07/2012 with slight improvement in his lung nodules. He received oral pazotinib for 3 years which was discontinued in February 2015 due to fatigue. Patient was last admitted in March/2024 for possible COPD exacerbation and chest wall pain. Patient comes in today with severe epigastric abdominal and distention that started 3 in the morning yesterday. Patient also documents increased cough with sputum production but denies any shortness of breath. He denies any difficulty swallowing or unintentional weight loss but does have loss of appetite. Patient denies any change in bowel habits, no diarrhea or black stools. Last colonoscopy was 2013. The sigmoid diverticulosis but no polyps or neoplasm. On evaluation in the ER patient was afebrile pulse 85 respiratory rate 18 blood pressure 120/75. He was noted to have pancreatitis. And was admitted for IV hydration and kept nothing by mouth. Labs are reviewed patient with leukocytosis of 22,000, hemoglobin 14.9 hematocrit 44 platelet 238 sodium 135 potassium 4.9 chloride 104 bicarb 23 BUN 32 creatinine 1.84 glucose of 129, mildly as of 1900 and lipase 13,000 857. UA was positive for 100 WBCs last leukocyte esterase and RBCs. 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 Influenza and COVID-19 virus was negative. gallbladder ultrasound was negative for gallstones or dilation CBD. GI consulted and oncology consulted for new lesions. CT abdomen suggested abnormal loop of bowel in the mid abdomen suggestive of focal inflammation process or ischemia. Large fluid-filled diverticular of the right colon without evidence of inflammation. No free intraperitoneal air or fluid noted and surgical absence of right kidney. Multiple pulmonary and liver masses suspected of metastatic disease. Start patient on Zosyn 3.375 every 8 hours per for UTI and diverticulitis. IR consult for possible liver biopsy 09/03 patient examined bedside. Continues to complain of abdominal distention with no bowel movement since Wednesday. Abdominal x-ray revealed yesterday had nonspecific bowelsigns of obstruction noted. Patient's vitals evaluated patient had a fever of 98 pulse 96 respiratory rate 22 blood pressure 119/67 oxygen saturation 92% on 2 L. Labs are reviewed patient's hemoglobin is 14.1 WBC was elevated at 26 platelet 214 ESR is elevated CRP is 19 lipase has improved to 182 CMP reviewed patient's sodium is 137 potassium 4.9 chloride 105 BUN 35 creatinine 1.94 chest x-ray revealed suggest basilar infiltrate concerning for mild CHF. Venous Doppler were obtained yesterday are negative for bilateral DVTs does have popliteal cyst on the left. Germination Testing Manager's notes were reviewed. GI recommends advancing to clear liquid diet. Tumor markers including AFP, CEA, CA 19/9 antigen is negative triglycerides pending. No plan for endoscopy evaluation in the setting of pancreatitis and possible ileus. Case discussed with oncology, liver lesions appears to be chronic. Liver biopsy is not indicated at this moment. Pancreatitis could be a result of pancreatic lesions from renal cell carcinoma. We'll evaluate with an MRI without contrast as patient cannot receive contrast due to her current kidney functions. Continue Zosyn for possible diverticulitis. Dulcolax suppository given yesterday with no improvement of patient's constipation. Fleet enema ordered for today. Surgery consulted for possible ischemic bowel though lactic acid is normal. ProBNP is normal unlikely to have CHF at this moment. Repeat chest x-ray tomorrow we will discontinue IV fluids due to concern for volume overload 09/04: Patient evaluated at the bedside. Patient was scheduled for MRI and MRCP today, was not completed due to patient was unable to fit into the [facility] scanner. Labs reviewed today, WBC 22.4 hemoglobin 12.1. He has been tolerating a full liquid diet, will advance to pured diet. Vital signs have been stable he's afebrile temperatures 98.8, heart rate 99, respiratory 16, blood pressure 132/74, O2 saturation of 94% on 2 L via nasal cannula 09/05: Patient examined at the bedside. He continues to have complaints of cough with congestion. Chest x-ray shows multiple scattered pulmonary nodules, patchy basilar densities that are improving. Patient was given a dose of IV Lasix. Patient's abdominal distention and pain is much better today. Still has complaints of difficulty swallowing and unable to swallow pills, consult placed to speech therapy, recommended modified barium swallow, which has been ordered. Pressure has been running a little on the lower side, amlodipine was decreased to 5 mg daily. Laboratory evaluation WBC 18.4, hemoglobin 11.5, sodium 135, BUN 40, creatinine 3.2. Kidney function is worse, Zosyn has been discontinued and changed to Levaquin and Flagyl, nephrology consult placed 09/06: Patient evaluated today, has complaints of bilateral lower extremity pain, morphine changed to 2 mg IV push along with tramadol as needed. He also had upper extremity swelling around the site of the IV, IV was discontinued most likely secondary to infiltration, no signs of cellulitis. Patient has not had a bowel movement in several days, soapsud enema ordered. Kidney function has worsened from 2.9 yesterday to 3.2, BUN 48, sodium 135, potassium 4.6, WBC 18, hemoglobin 11.3. Nephrology on consult, IV diuretics on hold as well as amlodipine, renal ultrasound and bladder scans ordered. Kidney ultrasound showed multiple left-sided renal cysts, right kidney is surgically absent. Abdominal x-ray showed overall nonobstructive bowel gas pattern. Modified barium swallow showed there was penetration and aspiration with thin barium. Transient penetration with nectar thick substances. Vallecular residuals were noted with solids 09/07: Patient evaluated at the bedside for follow-up. Patient had repeat chest x-ray that showed bilateral pulmonary nodules that are stable with persistent basilar and perihilar infiltrates, underlining interstitial pneumonitis cannot be excluded. Antibiotics have been changed Levaquin was changed to Zosyn for concern for aspiration pneumonia. Infectious disease has been consulted. Patient continues with aspiration precautions and nectar thick liquids with chin tuck. Laboratory value show WBCs increased to 20.4, hemoglobin 11.1, kidney function has worsened creatinine now 3.5, BUN 59. Nephrology is on consult. Will check a lipase tomorrow. 09/08: Patient evaluated this morning, resting in bed comfortably. Patient has complaints of some abdominal pain with nausea and increasing shortness of breath. Abdominal x-ray ordered and showed nonspecific abdomen with retained contrast throughout the colon, no significant interval change from the previous exam. With patient's increased shortness of breath and most recent abnormal swallow evaluation there is concern for possible aspiration pneumonia. Patient had an elevated white count as well, possibly due to aspiration pneumonitis or possibly oropharyngeal candidiasis. Infectious diseases consult appreciated, will obtain sputum for Gram stain and culture, CRP and prolactin level ordered, recommended to continue with Zosyn and discontinue Flagyl and add Diflucan. Oncology consult appreciated recommends once the patient is more stable will consider MRCP to rule out metastatic renal cell carcinoma to the pancreas 09/09: Patient continues to not have much appetite. Ensure added and Remeron also added. Pulse ox is low today running at 90% on room air and 89% on 3 L, VQ scan ordered. Patient has Guevara catheter in place with dark urine. IV fluids added at 100 mL per hour. He has been afebrile, heart rate 90, blood pressure 9 3/56.repeat blood work reveals WBC 23.9, hemoglobin 10.9, platelet count 320. Sodium 141, potassium 4.1, chloride 107, CO2 20, BUN 80 and creatinine 5.8. Calcium 8.0, total bilirubin 0.5, AST 47, ALT is 21, ALT 68. Albumin is 2.9. Pro-calcitonin came back at 0.93. Repeat coronavirus was ordered and came back not detected. Patient is followed by nephrology for acute kidney injury most likely acute tubular necrosis. Midodrine was added by nephrology. Patient is also followed by oncology and infectious disease. Sputum culture is uncorrected. 09/10: Patient is doing poorly today. He has a pill stuck in his throat. He states he has no appetite. Patient has not been eating or drinking very much. Renal function is worsening with BUN of 88 and creatinine 7.2. WBC 25.5, hemoglobin 11.5. CO2 is 13. Speech therapy has recommended a mechanical soft nectar thick liquids which will be started. Marinol was started today. Patient is known to be edematous to all extremities. Patient's family, and daughter, came to the bedside, discussed prognosis and plan with them. At this point, they would prefer patient be made comfort care and interested in hospice. They have had a family member at the hospice home in the past. Hospice meeting to occur later today and possible discharge tomorrow. 09/11: Patient continues to deteriorate overall. He continues to have low pulse ox of 88-89% on 6 L nasal cannula. Patient is more lethargic today, not able to eat or drink, choking on medication. He has been afebrile, heart rate 92, blood pressure 126/82. Dr. Escudero ordered Lasix 60 mg IV this morning. No repeat lab work ordered for today as hospice care is being pursued and patient's family has met with [facility] but family want patient to go to the [facility] and arrangements have been set for discharge there today. ASSESSMENT AND PLAN 1. Acute abdominal pain secondary to pancreatitis and colitis. 2. Acute Pancreatitis unclear etiology. 3. Sepsis secondary to Acute diverticulitis with CAT scan positive for focal inflammatory process involving the right colon with pedunculated diverticuli in the right colon. Tumor markers negative for primary colon carcinoma. 4. Acute kidney injury. 5. Metastatic renal cell carcinoma with liver lesions and lung lesion, stable. 6. 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 7. Metabolic acidosis secondary to acute kidney injury. 8. COPD not in exacerbation. 9. Mild intermittent asthma, stable. 10. History of renal cell cancer status post right-sided nephrectomy. 11. History of metastatic renal cell cancer to the lungs. 12. 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 13. Hypertension. 14. Hypothyroidism. 15. Benign prostatic hypertrophy. 16. Constipation. 17. Dysphasia. Pured diet with nectar thick liquids. 18. Aspiration pneumonia. 19. Oropharyngeal candidiasis. 20. GERD. 21. COVID-19 testing negative. Patient has been hospitalized during a pandemic. CODE STATUS: No code DISCHARGE PLAN [facility]. Impression and plan of care have been directed as dictated by the signing physician. Ruthy Gonzalez nurse practitioner acting as scribe for signing physician. Patient Condition at Discharge: Stable Plan - Discharge Summary New Discharge Prescriptions: New Scopolamine 1.5MG/72Hr Patch [TransDerm Scop] 1 patch TRANSDERM Q72H patch Discontinued Montelukast [Singulair] 10 mg PO DAILY Levothyroxine Sodium [Synthroid] 112 mcg PO DAILY Losartan [Cozaar] 50 mg PO DAILY amLODIPine [Norvasc] 10 mg PO DAILY Tamsulosin HCl [Flomax] 0.4 mg PO DAILY Cholecalciferol (Vitamin D3) [Vitamin D3] 2,000 unit PO DAILY Omeprazole [PriLOSEC] 40 mg PO W/SUPPER Fluticasone Propion/Salmeterol [Wixela 500-50 Inhub] 2 puff INHALATION RT-BID Discharge Medication List Scopolamine 1.5MG/72Hr Patch [TransDerm Scop] 1 patch TRANSDERM Q72H patch 09/11/20 [Rx] Follow up Appointment(s)/Referral(s): hCriss Pace DO [Primary Care Provider] - As Needed Discharge Disposition: DISCH TO [facility]
--- NOTE | 2020-09-11 13:22 | P.PN ---
Subjective Progress Note Date: 09/11/20 Principal diagnosis: Metastatic Renal Cell Patient is poor today, more acidotic, planning discharge with hospice care which is resonable Objective - Vital Signs Vital signs: Vital Signs Temp 97.6 F 09/11/20 08:17 Pulse 92 09/11/20 07:37 Resp 18 09/11/20 03:55 BP 126/82 09/11/20 03:55 Pulse Ox 89 L 09/11/20 03:55 Intake & Output 09/10/20 09/11/20 09/11/20 18:59 06:59 18:59 Intake Total 600 Output Total 325 200 Balance 275 -200 Weight 107 kg 107 kg Intake: Oral 600 Output: Urine 325 200 Other: Voiding Method Indwelling Catheter Indwelling Catheter - Exam - Constitutional General appearance: Present: cooperative, no acute distress, obese - EENT Eyes: Present: anicteric sclerae, EOMI ENT: Present: hearing grossly normal, normal oropharynx - Respiratory Respiratory: bilateral: CTA - Cardiovascular Rhythm: regular Heart sounds: normal: S1, S2 Abnormal Heart Sounds: Absent: systolic murmur, diastolic murmur, rub, S3 Gallop, S4 Gallop, click, other - Peripheral edema leg Peripheral Edema: bilateral: Trace - Gastrointestinal General gastrointestinal: Present: decreased bowel sounds, distended, soft Localized gastrointestinal: tender: RUQ, RLQ - Neurologic Neurologic: Present: CNII-XII intact - Musculoskeletal Musculoskeletal: Present: generalized weakness - Psychiatric Psychiatric: Present: A&O x's 3, appropriate affect, intact judgment & insight - Labs CBC & Chem 7: 09/10/20 09:00 09/10/20 09:00 Assessment and Plan Plan: Assessment and Plan (1) Pancreatitis Narrative/Plan: Clear liquids started, pancreatic enzymes significantly improved. Mgmt per Internal Medicine. MRI unable to be performed, cannot fit into machine. Plan for MRI outpt Current Visit: Yes Status: Acute Priority: High Code(s): K85.90 - ACUTE PANCREATITIS WITHOUT NECROSIS OR INFECTION, UNSP SNOMED Code(s): 58514113 (2) Liver metastasis Current Visit: Yes Status: Chronic Priority: Low Code(s): C78.7 - SECONDARY MALIG NEOPLASM OF LIVER AND INTRAHEPATIC BILE DUCT SNOMED Code(s): 02458385 (3) Lung metastasis Current Visit: Yes Status: Acute Priority: Medium Code(s): C78.00 - SECONDARY MALIGNANT NEOPLASM OF UNSPECIFIED LUNG SNOMED Code(s): 22145485 (4) Renal cell adenocarcinoma Current Visit: Yes Status: Chronic Priority: Medium Code(s): C64.9 - MALIGNANT NEOPLASM OF UNSP KIDNEY, EXCEPT RENAL PELVIS SNOMED Code(s): 301868611 (5) Carcinoma in situ of larynx Narrative/Plan: - . Speech Therapist recs reviewed, pt doing nectar thick liquids, no straws. GI following - He is not taking anything orally Current Visit: No Status: Chronic Priority: Low Code(s): D02.0 - CARCINOMA IN SITU OF LARYNX SNOMED Code(s): 03638292 Plan: Overall he is further declining, plan is to meet with hospice care, which is appropriate Hospice care
[2020-09-11 15:14] VITALS: PULSE 88; RESP 20
[2020-09-11] MEDS: SODIUM CHLORIDE 0.9% 1,000 ML IV SCH (15:17)
[2020-09-11] MEDS: MIRTAZAPINE 15 MG TAB PO SCH (15:43)
--- NOTE | 2020-09-12 14:03 | P.PN ---
Progress Note - Text Progress Note Date: 09/11/20 REASON FOR FOLLOWUP: Leukocytosis and pneumonia. INTERVAL HISTORY: The patient remains to be afebrile. Patient is lethargic though arousable. Patient denies having any chest pain. He still has a cough but not bringing up any sputum. No vomiting. No abdominal pain or any diarrhea. PHYSICAL EXAMINATION: Blood pressure 95/60 with a pulse of 90, temperature 98.2. He is 86% on 5 L nasal cannula. General description is an elderly male lying in bed in no distress. RESPIRATORY SYSTEM: Unlabored breathing. Coarse breath sounds bilaterally. HEART: S1, S2. Regular rate and rhythm. ABDOMEN: Soft, no tenderness. LABS: no new labs today DIAGNOSTIC IMPRESSION AND PLAN: Patient with elevated white count, multifactorial in this patient who did have worsening of his kidney function and possible hemoconcentration / pneumonia. Patient been treated with multiple antibiotic therapy and white count has not shown a good response with worsening of his kidney function and the family refused dialysis hospice care may be best option for him both Teflaro and Flagyl can be safely discontinued .
== END 2020-09-11 19:28 | disposition hospice, inpatient (51) | DRG 871 ==
LOC: EC 13:46 → 5NMEDONC 16:26
PROVIDERS: ADMIT Internal Medicine Geriatric Medicine; ATTEND Internal Medicine Geriatric Medicine
DX: A41.9 Sepsis, unspecified organism (principal); K85.90 Acute pancreatitis without necrosis or infection, unspecified; N17.0 Acute kidney failure with tubular necrosis; J69.0 Pneumonitis due to inhalation of food and vomit; C78.02 Secondary malignant neoplasm of left lung; C78.01 Secondary malignant neoplasm of right lung; C78.7 Secondary malignant neoplasm of liver and intrahepatic bile duct; K57.32 Diverticulitis of large intestine without perforation or abscess without bleeding; N39.0 Urinary tract infection, site not specified; E87.2 Acidosis; B37.0 Candidal stomatitis; N18.32 Chronic kidney disease, stage 3b; J44.9 Chronic obstructive pulmonary disease, unspecified; I71.4 Abdominal aortic aneurysm, without rupture; Z66 Do not resuscitate; Z51.5 Encounter for palliative care; Z20.822 Contact with and (suspected) exposure to COVID-19; I95.9 Hypotension, unspecified; I12.9 Hypertensive chronic kidney disease with stage 1 through stage 4 chronic kidney disease, or unspecified chronic kidney disease; J45.20 Mild intermittent asthma, uncomplicated; R13.10 Dysphagia, unspecified; K52.9 Noninfective gastroenteritis and colitis, unspecified; K59.00 Constipation, unspecified; G89.29 Other chronic pain; M54.5 Low back pain; M48.50XD Collapsed vertebra, not elsewhere classified, site unspecified, subsequent encounter for fracture with routine healing; K44.9 Diaphragmatic hernia without obstruction or gangrene; K21.9 Gastro-esophageal reflux disease without esophagitis; E89.0 Postprocedural hypothyroidism; I83.90 Asymptomatic varicose veins of unspecified lower extremity; E73.9 Lactose intolerance, unspecified; L71.9 Rosacea, unspecified; M19.90 Unspecified osteoarthritis, unspecified site; N40.0 Benign prostatic hyperplasia without lower urinary tract symptoms; M81.0 Age-related osteoporosis without current pathological fracture; N28.1 Cyst of kidney, acquired; R47.02 Dysphasia; M79.604 Pain in right leg; M79.605 Pain in left leg; E66.9 Obesity, unspecified; Z68.34 Body mass index [BMI] 34.0-34.9, adult; Z79.890 Hormone replacement therapy; Z79.51 Long term (current) use of inhaled steroids; Z92.21 Personal history of antineoplastic chemotherapy; Z85.528 Personal history of other malignant neoplasm of kidney; Z79.899 Other long term (current) drug therapy; Z87.891 Personal history of nicotine dependence; Z87.01 Personal history of pneumonia (recurrent); Z85.21 Personal history of malignant neoplasm of larynx; Z92.3 Personal history of irradiation; Z90.5 Acquired absence of kidney; Z87.11 Personal history of peptic ulcer disease; Z86.19 Personal history of other infectious and parasitic diseases; Z86.69 Personal history of other diseases of the nervous system and sense organs; Z90.89 Acquired absence of other organs; Z98.42 Cataract extraction status, left eye; Z98.41 Cataract extraction status, right eye; Z96.642 Presence of left artificial hip joint; Z87.81 Personal history of (healed) traumatic fracture; Z71.3 Dietary counseling and surveillance; Z98.890 Other specified postprocedural states; Z88.4 Allergy status to anesthetic agent; Z91.041 Radiographic dye allergy status; Z82.49 Family history of ischemic heart disease and other diseases of the circulatory system; Z80.9 Family history of malignant neoplasm, unspecified
CPT/HCPCS: 36415; 71045; 71046; 74018; 74176; 74230; 76705; 76770; 78580; 80048; 80053; 81001; 82105; 82150; 82378; 83605; 83690; 83735; 83880; 84145; 84478; 84484; 85025; 85027; 85652; 86140; 86301; 87086; 87635; 87636; 93005; 93970; 94640; 94760; 96374; 96375; 99285